=== PATIENT | female | born 1995 | race Hispanic/Latino ===

== ENCOUNTER 2018-08-23 13:58 | Emergency (ER) | payer OTHER, SELFPAY ==
[2018-08-23 15:34] LABS: Urine Blood 2+ (NEG); Urine Glucose NEGATIVE (NEG); Urine Protein NEGATIVE (NEG)
[2018-08-23 16:05] LABS: Absolute Lymphocytes (CBC) 1.4 K/uL (0.7-4.9); Absolute Monocytes 0.4 K/uL (0.1-1.3); Absolute Neutrophil 5.4 K/uL (1.8-8.0); Basophils % 0.4 % (0-1.3); Eosinophils % 1.6 % (0-4.4); Hematocrit 37.4 % (36.0-45.0); Lymphocytes % 19.2 % (15.3-44.8); MPV 9.5 fL (7.6-11.3); Monocytes % 5.7 % (3.3-12.3); RBC Red Blood Cell Count 4.22 M/uL (3.86-4.86)
[2018-08-23 16:30] LABS: BUN Blood Urea Nitrogen 9 mg/dL (7-18); Bicarbonate 26 mmol/L (21-32); Glucose Level 94 mg/dL (74-106); HCG, Quantitative 4441 mIU/mL (1-3); Potassium 3.6 mmol/L (3.5-5.1); Sodium Level 140 mmol/L (136-145)
--- NOTE | 2018-08-23 17:16 | RAD REPORT ---
EXAM DESCRIPTION: US - TRANSVAG OB - 08/23/2018 4:08 pm CLINICAL HISTORY: with abdominal pain vaginal pain COMPARISON: None FINDINGS: The uterus measures 8 x 5 x 5 centimeters. A gestational sac is present within the endome trium. Within this is a yolk sac. Gestational sac measures 7 millimeters. A pole was not visual ized Neither ovary seen. Within the left adnexa near midline is a 19.5 centimeter mass with low level echoes and thick septati on. No significant free fluid IMPRESSION: Single intrauterine with an estimated gestational age 5 weeks 3 days SYED 03/27 19.5 centimeter complex cystic mass within the pelvis near midline may represent a hemorrhagic ovaria n cyst, cystadenoma, mesenteric cyst or endometrioma
--- NOTE | 2018-08-23 17:41 | EDPHYS ---
Physician Documentation [facility] Name: Thelma Modi Age: 22 yrs Sex: Female : 1995 Arrival Date: 08/23/2018 Time: 14:03 Bed 27 Private MD: ED Physician Jose Head HPI: 08/23 17:38 This 22 yrs old Female presents to ER via Ambulatory with complaints of jmm Vaginal Bleeding, + Preg <12wks. 17:38 The patient presents to the emergency department with vaginal bleeding. Previous [facility] pregnancies: the patient has never been . Associated signs and symptoms: Pertinent negatives: abdominal pain, fever, frequency, shortness of breath, vomiting. This is a 22 years old that presents to the ED with complaints of vaginal bleeding. Bleeding is described as light. Denies abdominal or pelvic pain. Denies fever. 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 - Social history:: Smoking status: Patient/guardian denies using tobacco. - Ebola Screening: : No symptoms or risks identified at this time. ROS: 17:38 Constitutional: Negative for fever, chills, and weight loss, Cardiovascular: Negative jmm for chest pain, palpitations, and edema, Respiratory: Negative for shortness of breath, cough, wheezing, and pleuritic chest pain, Abdomen/GI: Negative for abdominal pain, nausea, vomiting, diarrhea, and constipation. 17:38 : Positive for vaginal bleeding. 17:38 All other systems are negative. Exam: 17:38 Constitutional: This is a well developed, well nourished patient who is awake, alert, jmm and in no acute distress. Head/Face: atraumatic. Eyes: EOMI, no conjunctival erythema appreciated ENT: Moist Mucus Membranes Neck: Trachea midline, Supple Chest/axilla: Normal chest wall appearance and motion. Cardiovascular: Regular rate and rhythm. No edema appreciated Respiratory: Normal respirations, no respiratory distress appreciated Abdomen/GI: Non distended, soft 17:38 Skin: General appearance color normal MS/ Extremity: Moves all extremities, no obvious deformities appreciated, no edema noted to the lower extremities Neuro: Awake and alert, normal gait Psych: Behavior is normal, Mood is normal, Patient is cooperative and pleasant 17:38 Abdomen/GI: Inspection: abdomen appears normal, Bowel sounds: normal, Palpation: soft, in the right lower quadrant and left lower quadrant. 17:38 Back: ROM is normal. Vital Signs: 14:03 BP 132 / 87; Pulse 82; Resp 16; Temp 98; Pulse Ox 97% ; Weight 108.86 kg; Height 5 ft. sv 6 in. (167.64 cm); Pain 0/10; 16:47 BP 113 / 82; Pulse 74; Resp 18; Temp 98(O); Pulse Ox 98% on R/A; Pain 0/10; mg2 17:57 BP 114 / 78; Pulse 78; Resp 18; Temp 98; Pulse Ox 100% on R/A; Pain 0/10; mg2 14:03 Body Mass Index 38.74 (108.86 kg, 167.64 cm) sv MDM: 15:16 Patient medically screened. [facility] 17:37 Data reviewed: vital signs, nurses notes. Counseling: I had a detailed discussion with [facility] the patient and/or guardian regarding: the historical points, exam findings, and any diagnostic results supporting the discharge/admit diagnosis, radiology results, the need for outpatient follow up, to return to the emergency department if symptoms worsen or persist or if there are any questions or concerns that arise at home. 17:37 Data reviewed: lab test result(s), radiologic studies. [facility] 17:37 ED course: I discussed US findings with Dr. Villar whom advised that the patient [facility] follow up in clinic with strict return precautions. I discussed this with the patient and family whom agree with the plan of care. . 08/23 14:33 Order name: Urine Dipstick--Ancillary (enter results); Complete Time: 15:45 08/23 14:33 Order name: Urine --Ancillary (enter results); Complete Time: 15:45 08/23 15:08 Order name: Quantitative Hcg; Complete Time: 16:33 [facility] 08/23 15:08 Order name: Abo/rh Typing; Complete Time: 16:47 [facility] 08/23 15:08 Order name: Basic Metabolic Panel; Complete Time: 16:33 [facility] 08/23 15:08 Order name: CBC with Diff; Complete Time: 16:33 [facility] 08/23 15:08 Order name: IV Saline Lock; Complete Time: 15:30 [facility] 08/23 15:08 Order name: Labs collected and sent; Complete Time: 15:30 [facility] 08/23 15:08 Order name: NPO; Complete Time: 15:30 [facility] 08/23 15:08 Order name: Urine Dipstick-Ancillary (obtain specimen); Complete Time: 15:30 [facility] 08/23 15:53 Order name: TRANSVAG OB; Complete Time: 17:17 [facility] 08/23 17:25 Interpretation: Abnormal. [facility] Administered Medications: No medications were administered Point of Care Testing: Urine : 15:34 hCG Reading: Positive; Control Reading: Positive; mg2 Disposition: 08/24 07:41 Co-signature as Attending Physician, Jose Head MD I agree with the assessment and kdr plan of care. Disposition: 08/23/18 17:38 Discharged to Home. Impression: Threatened , Urinary tract infection, site not specified, Pelvic Mass. - Condition is Stable. - Discharge Instructions: Ovarian Cyst, Threatened Miscarriage, Vaginal Bleeding During , First Trimester, and Urinary Tract Infection. - Prescriptions for Cephalexin 500 mg Oral Capsule - take 1 capsule by ORAL route every 12 hours for 10 days; 20 capsule. - Medication Reconciliation Form, Thank You Letter, Antibiotic Education, Prescription Opioid Use form. - Follow up: Xiang Villar MD; When: 2 - 3 days; Reason: Recheck today's complaints, Continuance of care, Re-evaluation by your physician. Signatures: Dispatcher [facility] Tami Richmond, RN RN Jose Dave MD MD kdr Mickail, Joel, PA PA [facility] Anthony Worley RN RN mg2 Corrections: (The following items were deleted from the chart) 08/23 15:53 15:33 OB Limited+US.RAD.BRZ ordered. [facility] 17:58 17:38 08/23/2018 17:38 Discharged to Home. Impression: Threatened ; Urinary mg2 tract infection, site not specified; Pelvic Mass. Condition is Stable. Forms are Medication Reconciliation Form, Thank You Letter, Antibiotic Education, Prescription Opioid Use. Follow up: Xiang Villar; When: 2 - 3 days; Reason: Recheck today's complaints, Continuance of care, Re-evaluation by your physician. oksana
--- NOTE | 2018-08-23 17:41 | ER ---
Nurse's Notes [facility] Name: Thelma Modi Age: 22 yrs Sex: Female : 1995 Arrival Date: 08/23/2018 Time: 14:03 Bed 27 Private MD: Diagnosis: Threatened ;Urinary tract infection, site not specified;Pelvic Mass Presentation: 08/23 14:02 Presenting complaint: Patient states: light vaginal bleeding started this morning, sv using a panty liner at this time. Pt is , unk amt of weeks. Transition of care: patient was not received from another setting of care. Onset of symptoms was August 23, 2018. Care prior to arrival: None. 14:02 Method Of Arrival: Ambulatory sv 14:02 Acuity: OC 3 sv 15:33 Risk Assessment: Do you want to hurt yourself or someone else? Patient reports no mg2 desire to harm self or others. Initial Sepsis Screen: Does the patient meet any 2 criteria? No. Patient's initial sepsis screen is negative. Does the patient have a suspected source of infection? No. Patient's initial sepsis screen is negative. 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 - Social history:: Smoking status: Patient/guardian denies using tobacco. - Ebola Screening: : No symptoms or risks identified at this time. Screenin:32 Abuse screen: Denies threats or abuse. Denies injuries from another. Nutritional mg2 screening: No deficits noted. Tuberculosis screening: No symptoms or risk factors identified. Fall Risk IV access (20 points). Assessment: 15:32 General: Appears in no apparent distress. comfortable, Behavior is calm, cooperative. mg2 Pain: Denies pain. Neuro: Level of Consciousness is awake, alert, obeys commands, Oriented to person, place, time, situation. Cardiovascular: Capillary refill < 3 seconds Patient's skin is warm and dry. Respiratory: Airway is patent Respiratory effort is even, unlabored, Respiratory pattern is regular, symmetrical. GI: No signs and/or symptoms were reported involving the gastrointestinal system. : Reports vaginal bleeding that is moderate flow, spotty. EENT: No signs and/or symptoms were reported regarding the EENT system. Derm: Skin is intact, is healthy with good turgor, Skin is pink, warm \T\ dry. normal. Musculoskeletal: Circulation, motion, and sensation intact. Capillary refill < 3 seconds. 15:33 Obstetrical Assessment: General assessment: awake and alert, skin warm and dry, Patient mg2 reports vaginal bleeding since 12 noon today. 17:57 Reassessment: Patient appears in no apparent distress at this time. Patient and/or mg2 family updated on plan of care and expected duration. Pain level reassessed. Patient is alert, oriented x 3, equal unlabored respirations, skin warm/dry/pink. Patient denies pain at this time. Vital Signs: 14:03 BP 132 / 87; Pulse 82; Resp 16; Temp 98; Pulse Ox 97% ; Weight 108.86 kg; Height 5 ft. sv 6 in. (167.64 cm); Pain 0/10; 16:47 BP 113 / 82; Pulse 74; Resp 18; Temp 98(O); Pulse Ox 98% on R/A; Pain 0/10; mg2 17:57 BP 114 / 78; Pulse 78; Resp 18; Temp 98; Pulse Ox 100% on R/A; Pain 0/10; mg2 14:03 Body Mass Index 38.74 (108.86 kg, 167.64 cm) sv Vitals: 17:58 Heart Tones not done. mg2 ED Course: 14:03 Patient arrived in ED. mr 14:03 Triage completed. sv 14:04 Arm band placed on. sv 15:05 Freddie Valles PA is PHCP. jmm 15:05 Jose Head MD is Attending Physician. jmm 15:31 Anthony Worley RN is Primary Nurse. mg2 15:31 No provider procedures requiring assistance completed. Inserted saline lock: 20 gauge mg2 in right forearm, using aseptic technique. Blood collected. 15:33 Patient has correct armband on for positive identification. mg2 16:09 TRANSVAG OB In Process Unspecified. EDMS 17:37 Xiang Villar MD is Referral Physician. jmm 17:58 IV discontinued, intact, bleeding controlled, No redness/swelling at site. Pressure mg2 dressing applied. Administered Medications: No medications were administered Point of Care Testing: Urine : 15:34 hCG Reading: Positive; Control Reading: Positive; mg2 Outcome: 17:38 Discharge ordered by . oksana 17:58 Discharged to home ambulatory, with family. mg2 17:58 Condition: stable 17:58 Discharge instructions given to patient, family, Instructed on discharge instructions, follow up and referral plans. medication usage, Demonstrated understanding of instructions, follow-up care, medications, Prescriptions given X 1. 17:58 Patient left the ED. mg2 Signatures: Dispatcher [employer] Tami Joshi RN RN Freddie Quinteros PA PA jmm Rivera, Mary mr Gardose, Michele RN RN mg2 Corrections: (The following items were deleted from the chart) 14:05 14:03 BP 132 / 87; Pulse 82bpm; Resp 16bpm; Pulse Ox 97%; 108.86 kg; Height 5 ft. 6 sv in.; BMI: 38.7; Pain 0/10; sv
== END 2018-08-23 17:58 | disposition home or self-care (01) ==
LOC: ER 13:58
DX: O20.0 Threatened abortion (principal); O23.41 Unspecified infection of urinary tract in pregnancy, first trimester; R19.00 Intra-abdominal and pelvic swelling, mass and lump, unspecified site; Z3A.01 Less than 8 weeks gestation of pregnancy
CPT/HCPCS: 36415; 76813; 80048; 81003; 81025; 84702; 85025; 86900; 86901; 99284

== ENCOUNTER 2018-09-04 14:26 | Emergency (ER) | payer OTHER, SELFPAY ==
[2018-09-04 15:01] LABS: Absolute Lymphocytes (CBC) 1.9 K/uL (0.7-4.9); Absolute Monocytes 0.6 K/uL (0.1-1.3); Absolute Neutrophil 7.2 K/uL (1.8-8.0); Basophils % 0.3 % (0-1.3); Eosinophils % 1.4 % (0-4.4); Lymphocytes % 19.3 % (15.3-44.8); MPV 9.3 fL (7.6-11.3); RBC Red Blood Cell Count 4.42 M/uL (3.86-4.86)
[2018-09-04 15:10] LABS: Urine Blood 3+ (NEG); Urine Glucose NEGATIVE (NEG); Urine Protein TRACE (NEG); Urine pH 7.5 (5.0-7.0)
[2018-09-04 15:10] LABS: BUN Blood Urea Nitrogen 9 mg/dL (7-18); Bicarbonate 23 mmol/L (21-32); Glucose Level 86 mg/dL (74-106); Potassium 3.9 mmol/L (3.5-5.1); Sodium Level 139 mmol/L (136-145)
--- NOTE | 2018-09-04 16:04 | RAD REPORT ---
EXAM DESCRIPTION: US - Transvaginal OB - 09/04/2018 3:37 pm CLINICAL HISTORY: Abdominal pain and cramping, , vaginal bleeding COMPARISON: Ultrasound August 23, 2018 FINDINGS: A normal shaped intrauterine gestational sac is again identifiable. A an 18 x 12 x 5 mm lao bchorionic hemorrhage is present not significant at this size. There remains no is avulsed pole . Yolk sac seen previously is not identified on the current study. Again noted is a large cystic 19-27 centimeter mass filling the pelvis. At least 1 thickened septatio n is present. Appearance is similar to the August 23 study. IMPRESSION: Presumed gestational sac in the uterus is again identified. There remains no identifiabl e pole and no yolk sac was identifiable on today's study. Large 19-20 centimeter cystic mass is still present filling the pelvis showing no change from August 23 imaging.
--- NOTE | 2018-09-04 16:12 | ER ---
Nurse's Notes [facility] Name: Thelma Modi Age: 22 yrs Sex: Female : 1995 Arrival Date: 09/04/2018 Time: 14:29 Bed 17 Private MD: Diagnosis: Threatened Presentation: 09/04 14:30 Presenting complaint: Patient states: LMP- 07/10/18; "i was here few weeks ago, they hj told me i have a cyst, and they told me when i have bleeding to come back; this bleeding started today, light at first and slowly getting heavier; reports abd cramps, pain of 3/10;. Transition of care: patient was not received from another setting of care. Onset of symptoms was September 04, 2018. Risk Assessment: Do you want to hurt yourself or someone else? Patient reports no desire to harm self or others. Initial Sepsis Screen: Does the patient meet any 2 criteria? No. Patient's initial sepsis screen is negative. Does the patient have a suspected source of infection? No. Patient's initial sepsis screen is negative. Care prior to arrival: None. 14:30 Method Of Arrival: Ambulatory 14:30 Acuity: OC 3 Triage Assessment: 14:43 General: Appears in no apparent distress. Behavior is calm, cooperative, appropriate tw2 for age. Pain: Denies pain. : No signs and/or symptoms were reported regarding the genitourinary system. 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 - Social history:: Smoking status: . - Ebola Screening: : Patient denies travel to an Ebola-affected area in the 21 days before illness onset. Screenin:42 Abuse screen: Denies threats or abuse. Nutritional screening: No deficits noted. tw2 Tuberculosis screening: No symptoms or risk factors identified. Fall Risk None identified. Assessment: 14:45 General: Appears in no apparent distress. obese, well groomed, Behavior is calm, tw2 cooperative, appropriate for age. Pain: Denies pain. Neuro: Level of Consciousness is awake, alert, obeys commands, confused, Oriented to person, place, time, situation. Cardiovascular: Heart tones S1 S2 Patient's skin is warm and dry. Respiratory: Airway is patent Respiratory effort is even, unlabored, Respiratory pattern is regular, symmetrical, Breath sounds are clear bilaterally. GI: No signs and/or symptoms were reported involving the gastrointestinal system. Abdomen is round non-distended, obese, Bowel sounds present X 4 quads. : No signs and/or symptoms were reported regarding the genitourinary system. : Reports vaginal bleeding that is. : Reports vaginal bleeding that is heavy flow. EENT: No signs and/or symptoms were reported regarding the EENT system. Derm: No signs and/or symptoms reported regarding the dermatologic system. Musculoskeletal: Range of motion: intact in all extremities. 15:42 Reassessment: Patient appears in no apparent distress at this time. No changes from tw2 previously documented assessment. Patient and/or family updated on plan of care and expected duration. Pain level reassessed. Patient is alert, oriented x 3, equal unlabored respirations, skin warm/dry/pink. 16:17 Reassessment: Patient appears in no apparent distress at this time. No changes from tw2 previously documented assessment. Patient and/or family updated on plan of care and expected duration. Pain level reassessed. Patient is alert, oriented x 3, equal unlabored respirations, skin warm/dry/pink. Vital Signs: 14:33 BP 119 / 74; Pulse 73; Resp 16; Temp 97.9(TE); Pulse Ox 98% on R/A; Weight 113.4 kg; hj Height 5 ft. 6 in. (167.64 cm); Pain 3/10; 15:42 BP 120 / 76; Pulse 65; Resp 17; Pulse Ox 97% on R/A; tw2 14:33 Body Mass Index 40.35 (113.40 kg, 167.64 cm) Vitals: 14:43 Heart Tones n/a <12wks. tw2 ED Course: 14:29 Patient arrived in ED. mr 14:32 Triage completed. hj 14:32 Arm band placed on right wrist. hj 14:37 Kamala Duncan FNP-C [facility]. kb 14:37 Josafat Isaac MD is Attending Physician. kb 14:38 Ny Mina, RN is Primary Nurse. tw2 14:43 Bed in low position. Call light in reach. tw2 14:50 Inserted saline lock: 22 gauge in right antecubital area, using aseptic technique. tw2 Blood collected. 15:39 US Transvaginal Ob In Process Unspecified. EDMS 16:17 No provider procedures requiring assistance completed. IV discontinued, intact, tw2 bleeding controlled, No redness/swelling at site. Pressure dressing applied. Administered Medications: No medications were administered Outcome: 16:11 Discharge ordered by MD. kb 16:18 Discharged to home ambulatory. tw2 16:18 Condition: stable 16:18 Discharge instructions given to patient, Instructed on discharge instructions, follow up and referral plans. Demonstrated understanding of instructions, follow-up care. 16:18 Patient left the ED. tw2 Signatures: Dispatcher [employer] EDMS Kamala Duncan, JUNAID BLEVINSP-Jadon JonathanNelly Henry, RN RN Ny Mina, RN RN tw2 Corrections: (The following items were deleted from the chart) 14:34 14:33 113.4 kg; Height 5 ft. 6 in.; BMI: 40.3; Pain 3/10; hj hj 14:34 14:33 Pulse 73bpm; Resp 16bpm; Pulse Ox 98% RA; Temp 97.9F Temporal; 113.4 kg; Height 5 hj ft. 6 in.; BMI: 40.3; Pain 3/10; hj
--- NOTE | 2018-09-04 16:13 | EDPHYS ---
Physician Documentation [facility] Name: Thelma Modi Age: 22 yrs Sex: Female : 1995 Arrival Date: 09/04/2018 Time: 14:29 Bed 17 Private MD: ED Physician Josafat Isaac HPI: 09/04 15:22 This 22 yrs old Female presents to ER via Ambulatory with complaints of kb Vaginal Bleeding, + Preg <12wks. 15:22 The patient presents to the emergency department with abdominal pain, of the right kb lower quadrant and left lower quadrant, that started this morning, vaginal bleeding, that is light. The estimated gestational age is 7 weeks. course: care: none, Leakage of Fluid: none appreciated, Ultrasound: the patient had an ultrasound, Risk/complications: no obvious risks or complications are appreciated. Previous pregnancies: the patient has never been . Associated signs and symptoms: Pertinent positives: abdominal pain, vaginal bleeding, Pertinent negatives: chest pain, diarrhea, dysuria, fever, frequency, nausea, ruptured membranes, seizure, shortness of breath, vaginal discharge, vomiting. The patient has not experienced similar symptoms in the past. The patient has not recently seen a physician. Pt reports vaginal bleeding and lower abd pain started this morning. States the abd pain has gotten better, but bleeding has gotten worse. 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 - Social history:: Smoking status: . - Ebola Screening: : Patient denies travel to an Ebola-affected area in the 21 days before illness onset. ROS: 15:21 Constitutional: Negative for fever, chills, and weight loss, Neck: Negative for injury, kb pain, and swelling, Cardiovascular: Negative for chest pain, palpitations, and edema, Respiratory: Negative for shortness of breath, cough, wheezing, and pleuritic chest pain, Back: Negative for injury and pain, MS/Extremity: Negative for injury and deformity, Skin: Negative for injury, rash, and discoloration, Neuro: Negative for headache, weakness, numbness, tingling, and seizure. 15:21 Abdomen/GI: Positive for abdominal pain, Negative for nausea, vomiting, and diarrhea. 15:21 : Positive for vaginal bleeding. Exam: 15:21 Constitutional: This is a well developed, well nourished patient who is awake, alert, kb and in no acute distress. Head/Face: Normocephalic, atraumatic. Neck: Trachea midline, no thyromegaly or masses palpated, and no cervical lymphadenopathy. Supple, full range of motion without nuchal rigidity, or vertebral point tenderness. No Meningismus. Chest/axilla: Normal chest wall appearance and motion. Nontender with no deformity. No lesions are appreciated. Cardiovascular: Regular rate and rhythm with a normal S1 and S2. No gallops, murmurs, or rubs. Normal PMI, no JVD. No pulse deficits. Respiratory: Lungs have equal breath sounds bilaterally, clear to auscultation and percussion. No rales, rhonchi or wheezes noted. No increased work of breathing, no retractions or nasal flaring. Back: No spinal tenderness. No costovertebral tenderness. Full range of motion. Skin: Warm, dry with normal turgor. Normal color with no rashes, no lesions, and no evidence of cellulitis. MS/ Extremity: Pulses equal, no cyanosis. Neurovascular intact. Full, normal range of motion. Neuro: Awake and alert, GCS 15, oriented to person, place, time, and situation. Cranial nerves II-XII grossly intact. Motor strength 5/5 in all extremities. Sensory grossly intact. Cerebellar exam normal. Normal gait. 15:21 Abdomen/GI: Inspection: abdomen appears normal, Bowel sounds: normal, in all quadrants, Palpation: soft, in all quadrants, mild abdominal tenderness, in the right lower quadrant and left lower quadrant. Vital Signs: 14:33 BP 119 / 74; Pulse 73; Resp 16; Temp 97.9(TE); Pulse Ox 98% on R/A; Weight 113.4 kg; hj Height 5 ft. 6 in. (167.64 cm); Pain 3/10; 15:42 BP 120 / 76; Pulse 65; Resp 17; Pulse Ox 97% on R/A; tw2 14:33 Body Mass Index 40.35 (113.40 kg, 167.64 cm) hj MDM: 14:38 Patient medically screened. kb 15:21 Data reviewed: vital signs, nurses notes. Data interpreted: Pulse oximetry: on room air kb is 98 %. Interpretation: normal. 16:01 Counseling: I had a detailed discussion with the patient and/or guardian regarding: the kb historical points, exam findings, and any diagnostic results supporting the discharge/admit diagnosis, lab results, radiology results, the need for outpatient follow up, an OB/Gyne specialist, to return to the emergency department if symptoms worsen or persist or if there are any questions or concerns that arise at home. 16:12 ED course: Educated to follow up in 48 hours for repeat Quantitative . kb 09/04 14:42 Order name: CBC with Diff; Complete Time: 15:03 kb 09/04 14:42 Order name: Basic Metabolic Panel; Complete Time: 15:14 kb 09/04 14:42 Order name: US Transvaginal Ob; Complete Time: 16:07 kb 09/04 14:44 Order name: HCG-Quantitative; Complete Time: 16:00 09/04 15:00 Order name: Urine Dipstick--Ancillary (enter results); Complete Time: 15:14 09/04 15:00 Order name: Urine --Ancillary (enter results); Complete Time: 15:14 09/04 14:35 Order name: Urine Dipstick-Ancillary (obtain specimen); Complete Time: 14:54 09/04 14:35 Order name: Urine Test (obtain specimen); Complete Time: 14:54 09/04 14:44 Order name: IV Start; Complete Time: 14:54 tw2 Administered Medications: No medications were administered Disposition: 19:03 Co-signature as Attending Physician, Josafat Isaac MD Available for consultation at ps1 all times. . Disposition: 09/04/18 16:11 Discharged to Home. Impression: Threatened . - Condition is Stable. - Discharge Instructions: Threatened Miscarriage, [id number]. - Medication Reconciliation Form, Thank You Letter, Antibiotic Education, Prescription Opioid Use form. - Follow up: Emergency Department; When: As needed; Reason: Worsening of condition. Follow up: Private Physician; When: 2 - 3 days; Reason: Recheck today's complaints, Continuance of care, Re-evaluation by your physician. Signatures: Dispatcher [employer] Amplification EDMS Kamala Duncan, BILLET SHEARER-C BILLET SHEARER-Ckb Ravin Gary, RN RN hj Ny Mina RN RN tw2 Josafat Isaac MD MD ps1 Corrections: (The following items were deleted from the chart) 16:18 16:11 09/04/2018 16:11 Discharged to Home. Impression: Threatened . Condition tw2 is Stable. Forms are Medication Reconciliation Form, Thank You Letter, Antibiotic Education, Prescription Opioid Use. Follow up: Emergency Department; When: As needed; Reason: Worsening of condition. Follow up: Private Physician; When: 2 - 3 days; Reason: Recheck today's complaints, Continuance of care, Re-evaluation by your physician. kb
== END 2018-09-04 16:18 | disposition home or self-care (01) ==
LOC: ER 14:26
DX: O20.0 Threatened abortion (principal); Z3A.01 Less than 8 weeks gestation of pregnancy
CPT/HCPCS: 36415; 76817; 80048; 81003; 81025; 84702; 85025; 99284

== ENCOUNTER 2018-09-15 10:47 | Emergency (ER) | payer OTHER ==
--- OUTSIDE RECORDS SUMMARY | 2018-09-15 10:50 | XMS REPORT ---
:1995 [facility] Address [address] [place] [address] Dr. Gilman [address] [place] [id number] Care Team Providers Name Role Phone Unavailable Unavailable Unavailable Problems This patient has no known problems. Allergies, Adverse Reactions, Alerts This patient has no known allergies or adverse reactions. Medications This patient has no known medications.
[2018-09-15 12:18] LABS: Urine Blood NEGATIVE (NEG); Urine Glucose NEGATIVE (NEG); Urine Protein NEGATIVE (NEG); Urine pH 5.5 (5.0-7.0)
--- NOTE | 2018-09-15 13:41 | RAD REPORT ---
EXAM DESCRIPTION: US - Transvaginal OB - 09/15/2018 1:14 pm CLINICAL HISTORY: , pelvic pain COMPARISON: September 04, August 23 FINDINGS: A normal shaped gestational sac is seen in the fundal portion of the endometrial cavity. A verage sac diameter corresponds to a 6 week 5 day age. This would match the September 04 imaging. No pole or yolk sac identifiable. No new or enlarging intrauterine hematoma or mass. This is most likel y a blighted ovum. No free fluid or blood in the cul-de-sac. In the left adnexa an 18-20 centimeter cystic mass with sep tation again identified. No exchange trouble shooter this short 2 week interval. Thin rim of ovarian tissue is laura ntified. Torsion is not suspected at this time. Right ovary was not identifiable. No right adnexal ab normality. IMPRESSION: Presumed gestational sac in the fundus has not changed size since September 04. This is most likely a blighted ovum. An 18-20 centimeter cystic mass in the left adnexa is present stable from prior imaging. Torsion is n ot currently suspected. 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 Cystadenocarcinoma or other aggressive pro cess lesser in likelihood but not excluded. No adnexal mass seen suspicious for an ectopic . Findings are presumed to be miscarriage. Correlation can be made with serial beta HCG values. 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
[2018-09-15 14:22] LABS: Absolute Lymphocytes (CBC) 1.4 K/uL (0.7-4.9); Basophils % 0.4 % (0-1.3); Eosinophils % 0.8 % (0-4.4); Hematocrit 37.7 % (36.0-45.0); Lymphocytes % 16.1 % (15.3-44.8); MPV 9.1 fL (7.6-11.3); Monocytes % 4.4 % (3.3-12.3); RBC Red Blood Cell Count 4.23 M/uL (3.86-4.86)
[2018-09-15 15:01] LABS: BUN Blood Urea Nitrogen 10 mg/dL (7-18); Bicarbonate 26 mmol/L (21-32); Glucose Level 83 mg/dL (74-106); HCG, Quantitative 17799 mIU/mL (1-3); Potassium 3.6 mmol/L (3.5-5.1); Sodium Level 140 mmol/L (136-145)
--- NOTE | 2018-09-15 16:03 | EDPHYS ---
Physician Documentation [facility] Name: Thelma Modi Age: 23 yrs Sex: Female : 1995 Arrival Date: 09/15/2018 Time: 10:49 Bed 18 Private MD: ED Physician Shahzad Hanks HPI: 09/15 11:30 This 23 yrs old Female presents to ER via Ambulatory with complaints of jmm Abdominal Pain, 9 wks . 11:30 The patient presents with abdominal pain in the left lower quadrant. Onset: The jmm symptoms/episode began/occurred acutely, 1 hour(s) ago. The symptoms do not radiate. Associated signs and symptoms: Pertinent positives: vomiting. The symptoms are described as sharp. This is a 23 year old female that presents to the ED with complaints of acute onset pelvic pain. Pain is localized to the left side. Patient had 1 episode of vomiting. Denies vaginal bleeding. Denies fever. Patient states pain is currently relieved approx 10 minutes ago. . 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 - Social history:: Smoking status: Patient/guardian denies using tobacco. - Ebola Screening: : No symptoms or risks identified at this time. ROS: 11:30 Constitutional: Negative for fever, chills, and weight loss, Cardiovascular: Negative jmm for chest pain, palpitations, and edema, Respiratory: Negative for shortness of breath, cough, wheezing, and pleuritic chest pain. 11:30 Back: Negative for injury and pain. 11:30 Abdomen/GI: Positive for abdominal pain, nausea and vomiting. 11:30 All other systems are negative. Exam: 11:30 Constitutional: This is a well developed, well nourished patient who is awake, alert, jmm and in no acute distress. Head/Face: atraumatic. Eyes: EOMI, no conjunctival erythema appreciated ENT: Moist Mucus Membranes Neck: Trachea midline, Supple Chest/axilla: Normal chest wall appearance and motion. Cardiovascular: Regular rate and rhythm. No edema appreciated Respiratory: Normal respirations, no respiratory distress appreciated 11:30 Back: Normal ROM Skin: General appearance color normal MS/ Extremity: Moves all extremities, no obvious deformities appreciated, no edema noted to the lower extremities Neuro: Awake and alert, normal gait Psych: Behavior is normal, Mood is normal, Patient is cooperative and pleasant 11:30 Abdomen/GI: Inspection: abdomen appears normal, Bowel sounds: normal, Palpation: soft, nontender, in all quadrants. 11:30 Back: CVA tenderness, is absent. Vital Signs: 10:56 BP 145 / 82; Pulse 66; Resp 16 S; Temp 98.0(TE); Pulse Ox 99% on R/A; Weight 117.93 kg aa5 (R); Height 5 ft. 6 in. (167.64 cm) (R); Pain 8/10; 11:40 BP 106 / 78; Pulse 66; Resp 18; Pulse Ox 99% on R/A; Pain 3/10; em 12:38 BP 121 / 72; Pulse 71; Resp 16; Pulse Ox 99% on R/A; Pain 3/10; em 13:41 BP 128 / 85; Pulse 67; Resp 18; Pulse Ox 99% on R/A; hj 14:30 BP 123 / 83; Pulse 68; Resp 18; Pulse Ox 97% on R/A; em 15:47 BP 112 / 73; Pulse 64; Resp 18; Pulse Ox 100% on R/A; em 10:56 Body Mass Index 41.96 (117.93 kg, 167.64 cm) aa5 MDM: 11:[address] [facility] 15:55 Data reviewed: vital signs, nurses notes. Counseling: I had a detailed discussion with [facility] the patient and/or guardian regarding: the historical points, exam findings, and any diagnostic results supporting the discharge/admit diagnosis, the need for outpatient follow up, to return to the emergency department if symptoms worsen or persist or if there are any questions or concerns that arise at home. 15:55 ED course: US reveals stable mass. No torsion. Quant is decreased concerning for jmm . I discussed US findings with the patient along with the need for close follow up with ob. Patient was otherwise given strict return precautions. Patient understood and agrees with the plan of care. . 09/15 12:01 Order name: Urine Dipstick--Ancillary (enter results); Complete Time: 12:23 09/15 12:01 Order name: Urine --Ancillary (enter results); Complete Time: 12:23 09/15 14:02 Order name: Quantitative Hcg; Complete Time: 15:[address] [facility] 09/15 14:03 Order name: BMP; Complete Time: 15:[address] [facility] 09/15 14:08 Order name: CBC with Diff; Complete Time: 14:[address] [facility] 09/15 12:52 Order name: Transvaginal OB; Complete Time: 13:45 EDWI Administered Medications: No medications were administered Disposition: 09/16 10:07 Co-signature as Attending Physician, Shahzad Hanks MD I agree with the assessment and jorden plan of care. Disposition: 09/15/18 15:56 Discharged to Home. Impression: Blighted ovum and nonhydatidiform mole. - Condition is Stable. - Discharge Instructions: Blighted Ovum. - Medication Reconciliation Form, Thank You Letter, Antibiotic Education, Prescription Opioid Use form. - Follow up: Private Physician; When: 2 - 3 days; Reason: Recheck today's complaints, Continuance of care, Re-evaluation by your physician. Signatures: Dispatcher [employer] [facility] Shahzad Hanks MD MD cha Mickail, Joel, PA PA [facility] Ángel Horne, IMMERSION METAL CLEANER IMMERSION METAL CLEANER Leti Edwards, RN RN aa5 Corrections: (The following items were deleted from the chart) 09/15 12:52 11:37 Pelvis Complete+US.RAD.BRZ ordered. [facility] 16:19 15:56 09/15/2018 15:56 Discharged to Home. Impression: Blighted ovum and em nonhydatidiform mole. Condition is Stable. Forms are Medication Reconciliation Form, Thank You Letter, Antibiotic Education, Prescription Opioid Use. Follow up: Private Physician; When: 2 - 3 days; Reason: Recheck today's complaints, Continuance of care, Re-evaluation by your physician. [facility]
--- NOTE | 2018-09-15 16:03 | ER ---
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 Pt states "I am 9 weeks 4 days ". Pt denies vaginal bleeding. Transition of care: patient was not received from another setting of care. Onset of symptoms was September 15, 2018. Risk Assessment: Do you want to hurt yourself or someone else? Patient reports no desire to harm self or others. Initial Sepsis Screen: Does the patient meet any 2 criteria? No. Patient's initial sepsis screen is negative. Does the patient have a suspected source of infection? No. Patient's initial sepsis screen is negative. Care prior to arrival: None. 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 - Social history:: Smoking status: Patient/guardian denies using tobacco. - Ebola Screening: : No symptoms or risks identified at this time. Screenin:40 Abuse screen: Denies threats or abuse. Nutritional screening: No deficits noted. em Tuberculosis screening: No symptoms or risk factors identified. Fall Risk None identified. Assessment: 11:40 General: Appears in no apparent distress. comfortable, Behavior is calm, cooperative, em Denies fever. Pain: Complains of pain in left lower quadrant Pain currently is 3 out of 10 on a pain scale. Neuro: Level of Consciousness is awake, alert, obeys commands, Oriented to person, place, time, situation, Denies weakness dizziness. Cardiovascular: Capillary refill < 3 seconds Patient's skin is warm and dry. Respiratory: Airway is patent Respiratory effort is even, unlabored, Respiratory pattern is regular, symmetrical. GI: Abdomen is flat, Bowel sounds present X 4 quads. Abd is soft X 4 quads Abdomen is tender to palpation in left lower quadrant Reports nausea, vomiting. : Denies burning with urination, discharge, vaginal bleeding. Derm: Skin is intact, is healthy with good turgor, Skin is pink, warm \\T\\ dry. Musculoskeletal: Capillary refill < 3 seconds, Range of motion: intact in all extremities. 12:36 Reassessment: Patient appears in no apparent distress at this time. Patient and/or em family updated on plan of care and expected duration. Pain level reassessed. Patient is alert, oriented x 3, equal unlabored respirations, skin warm/dry/pink. pending US. 13:41 Reassessment: Patient appears in no apparent distress at this time. Patient and/or em family updated on plan of care and expected duration. Pain level reassessed. Patient is alert, oriented x 3, equal unlabored respirations, skin warm/dry/pink. pending US results Patient states feeling better. Patient states symptoms have improved. 14:24 Reassessment: Patient appears in no apparent distress at this time. Patient and/or em family updated on plan of care and expected duration. Pain level reassessed. Patient is alert, oriented x 3, equal unlabored respirations, skin warm/dry/pink. Patient states feeling better. Patient states symptoms have improved. 15:47 Reassessment: Patient appears in no apparent distress at this time. Patient and/or em family updated on plan of care and expected duration. Pain level reassessed. Patient is alert, oriented x 3, equal unlabored respirations, skin warm/dry/pink. Vital Signs: 10:56 BP 145 / 82; Pulse 66; Resp 16 S; Temp 98.0(TE); Pulse Ox 99% on R/A; Weight 117.93 kg aa5 (R); Height 5 ft. 6 in. (167.64 cm) (R); Pain 8/10; 11:40 BP 106 / 78; Pulse 66; Resp 18; Pulse Ox 99% on R/A; Pain 3/10; em 12:38 BP 121 / 72; Pulse 71; Resp 16; Pulse Ox 99% on R/A; Pain 3/10; em 13:41 BP 128 / 85; Pulse 67; Resp 18; Pulse Ox 99% on R/A; hj 14:30 BP 123 / 83; Pulse 68; Resp 18; Pulse Ox 97% on R/A; em 15:47 BP 112 / 73; Pulse 64; Resp 18; Pulse Ox 100% on R/A; em 10:56 Body Mass Index 41.96 (117.93 kg, 167.64 cm) aa5 ED Course: 10:49 Patient arrived in ED. mr 10:54 Arm band placed on. aa5 10:56 Triage completed. aa5 11:26 Freddie Valles PA is PHCP. [facility] 11:26 Shahzad Hanks MD is Attending Physician. [facility] 11:30 Ángel Horne LVN is Primary Nurse. em 11:40 Patient has correct armband on for positive identification. Placed in gown. Bed in low em position. Call light in reach. Adult w/ patient. Pulse ox on. NIBP on. 11:48 Urine collected: clean catch specimen, clear. 3 13:15 Transvaginal OB In Process Unspecified. EDMS 14:10 Initial lab(s) drawn, by me, sent to lab. em 16:11 No provider procedures requiring assistance completed. Patient did not have IV access em during this emergency room visit. Administered Medications: No medications were administered Outcome: 15:56 Discharge ordered by MD. [facility] 16:12 Discharged to home ambulatory, with family. em 16:12 Condition: good 16:12 Discharge instructions given to patient, Instructed on discharge instructions, follow up and referral plans. Demonstrated understanding of instructions, follow-up care. 16:19 Patient left the ED. em Signatures: Dispatcher [employer] EDMS Freddie Valles PA PA Nelly Gordon mr HorneÁngel LVN LVN em Leti Francois RN RN [facility] Ravin Gary RN RN Shelley Diaz [facility] Corrections: (The following items were deleted from the chart) 15:14 13:41 Reassessment: Patient appears in no apparent distress at this time. Patient em and/or family updated on plan of care and expected duration. Pain level reassessed. Patient is alert, oriented x 3, equal unlabored respirations, skin warm/dry/pink. pending US results Patient states feeling better. Patient states symptoms have improved. 15:14 14:24 Reassessment: Patient appears in no apparent distress at this time. Patient em and/or family updated on plan of care and expected duration. Pain level reassessed. Patient is alert, oriented x 3, equal unlabored respirations, skin warm/dry/pink. Patient states feeling better. Patient states symptoms have improved.
== END 2018-09-15 16:19 | disposition home or self-care (01) ==
LOC: ER 10:47
DX: O02.0 Blighted ovum and nonhydatidiform mole (principal); Z3A.09 9 weeks gestation of pregnancy
CPT/HCPCS: 36415; 76817; 80048; 81003; 81025; 84702; 85025; 99284

== ENCOUNTER 2018-10-17 15:15 | Emergency (ER) | payer OTHER ==
--- OUTSIDE RECORDS SUMMARY | 2018-10-17 15:18 | XMS REPORT ---
:1995 [facility] Address [address] [place] [address] Dr. Gilman [address] [place] [id number] Care Team Providers Name Role Phone Unavailable Unavailable Unavailable Problems This patient has no known problems. Allergies, Adverse Reactions, Alerts This patient has no known allergies or adverse reactions. Medications This patient has no known medications.
[2018-10-17] MEDS ORDERED: FLUORESCEIN SODIUM 1 MG/WRAP ONE (15:49)
[2018-10-17] MEDS ORDERED: TETRACAINE HCL 0.5% 4ML OPTH ONE (15:49)
[2018-10-17] MEDS ORDERED: TETANUS & DIPHTHERIA TOX,ADULT 0.5 ML VIAL ONE (15:50)
--- NOTE | 2018-10-17 16:02 | EDPHYS ---
Physician Documentation [facility] Name: Thelma Modi Age: 23 yrs Sex: Female : 1995 Arrival Date: 10/17/2018 Time: 15:17 Bed 17 Private MD: ED Physician Jose Head HPI: 10/17 15:28 This 23 yrs old Female presents to ER via Ambulatory with complaints of Eye pm1 Problem. 15:28 The patient is experiencing foreign body sensation, pain, The patient sustained pm1 Unknown. to the right eye, caused by contact lens. Onset: The symptoms/episode began/occurred this morning. Duration: the symptoms are continuous. Aggravated by nothing. Alleviated by nothing. Associated signs and symptoms: Pertinent positives: None. Patient wears soft contacts. Severity of symptoms: in the emergency department the symptoms are unchanged. The patient has not experienced similar symptoms in the past. The patient has not recently seen a physician. Patient slept with her contacts in her eyes. Contacts are monthly disposable soft contacts. 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 - Social history:: Smoking status: Patient/guardian denies using tobacco. - Ebola Screening: : No symptoms or risks identified at this time. ROS: 15:28 Constitutional: Negative for fever, chills, and weight loss. pm1 15:28 ENT: Negative for injury, pain, and discharge, Neck: Negative for injury, pain, and swelling, Cardiovascular: Negative for chest pain, palpitations, and edema, Respiratory: Negative for shortness of breath, cough, wheezing, and pleuritic chest pain, Abdomen/GI: Negative for abdominal pain, nausea, vomiting, diarrhea, and constipation, Back: Negative for injury and pain, MS/Extremity: Negative for injury and deformity, Skin: Negative for injury, rash, and discoloration, Neuro: Negative for headache, weakness, numbness, tingling, and seizure. 15:28 Eyes: Positive for foreign body sensation, pain, tearing, of the right eye, Negative for discharge, vision loss, visual disturbance. Exam: 15:28 Constitutional: This is a well developed, well nourished patient who is awake, alert, pm1 and in no acute distress. Head/Face: Normocephalic, atraumatic. 16:00 Visual Acuity: I have reviewed the nursing documentation. pm1 16:00 ENT: Nares patent. No nasal discharge, no septal abnormalities noted. Tympanic membranes are normal and external auditory canals are clear. Oropharynx with no redness, swelling, or masses, exudates, or evidence of obstruction, uvula midline. Mucous membranes moist. Neck: Trachea midline, no thyromegaly or masses palpated, and no cervical lymphadenopathy. Supple, full range of motion without nuchal rigidity, or vertebral point tenderness. No Meningismus. Chest/axilla: Normal chest wall appearance and motion. Nontender with no deformity. No lesions are appreciated. Cardiovascular: Regular rate and rhythm with a normal S1 and S2. No gallops, murmurs, or rubs. Normal PMI, no JVD. No pulse deficits. Respiratory: Lungs have equal breath sounds bilaterally, clear to auscultation and percussion. No rales, rhonchi or wheezes noted. No increased work of breathing, no retractions or nasal flaring. Back: No spinal tenderness. No costovertebral tenderness. Full range of motion. Skin: Warm, dry with normal turgor. Normal color with no rashes, no lesions, and no evidence of cellulitis. MS/ Extremity: Pulses equal, no cyanosis. Neurovascular intact. Full, normal range of motion. 16:00 Eyes: Periorbital structures: appear normal, Pupils: no acute changes, normal reaction to light, Extraocular movements: intact throughout, Conjunctiva: injected, in the right eye, Corneas: abrasion, that is small, approximately 1 mm(s), on the right, at 6 o'clock, foreign body, is not appreciated, a fluorescein strip employed to appreciate the findings, Sclera: no acute changes, Lids and lashes: appear normal. 16:00 Neuro: Orientation: is normal, Motor: is normal, moves all fours. Vital Signs: 15:20 BP 118 / 83; Pulse 75; Resp 18; Temp 98.4(TE); Pulse Ox 99% on R/A; Weight 113.4 kg; hj Height 5 ft. 6 in. (167.64 cm); Pain 4/10; 16:13 BP 115 / 79; Pulse 71; Resp 16; Temp 98.5; Pulse Ox 99% ; bp 15:20 Body Mass Index 40.35 (113.40 kg, 167.64 cm) hj Visual Acuity: 15:41 Left Eye Visual acuity 20/25, ; Right Eye Visual acuity 20/200, ; Both Eyes Visual dh3 acuity 20/25; With Lenses; pt is wearing a contact in the left eye only MDM: 15:28 Patient medically screened. pm1 16:00 Data reviewed: vital signs. Data interpreted: Pulse oximetry: on room air is 99 %. pm1 Interpretation: normal. Counseling: I had a detailed discussion with the patient and/or guardian regarding: the historical points, exam findings, and any diagnostic results supporting the discharge/admit diagnosis, the need for outpatient follow up, for definitive care, an opthalmologist, to return to the emergency department if symptoms worsen or persist or if there are any questions or concerns that arise at home. 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 Exp: bp 06/15/2020. Lot #: [id number]. } Route: IM; Site: right deltoid; 15:41 Follow up: Response: No adverse reaction bp Disposition: 10/18 06:49 Co-signature as Attending Physician, Jose Head MD I agree with the assessment and kdr plan of care. Disposition: 10/17/18 16:01 Discharged to Home. Impression: Injury of conjunctiva and corneal abrasion without foreign body, right eye. - Condition is Stable. - Discharge Instructions: Corneal Abrasion. - Prescriptions for Vigamox 0.5 % Ophthalmic Drops - instill 1 drop by OPHTHALMIC route every 8 hours for 7 days; 5 milliliter. - Medication Reconciliation Form, Thank You Letter, Antibiotic Education, Prescription Opioid Use form. - Follow up: Emergency Department; When: As needed; Reason: Worsening of condition. Follow up: Private Physician; When: 1 - 2 days; Reason: Recheck today's complaints, Continuance of care, Re-evaluation by your physician. - Problem is new. - Symptoms have improved. Signatures: Jose Head MD MD [facility] Ravin Gary RN RN Paul Jimenez NP DENIAL MANAGEMENT REPRESENTATIVE pm1 Mic Raya RN RN bp Corrections: (The following items were deleted from the chart) 10/17 16:15 16:01 10/17/2018 16:01 Discharged to Home. Impression: Injury of conjunctiva and bp corneal abrasion without foreign body, right eye. Condition is Stable. Forms are Medication Reconciliation Form, Thank You Letter, Antibiotic Education, Prescription Opioid Use. Follow up: Emergency Department; When: As needed; Reason: Worsening of condition. Follow up: Private Physician; When: 1 - 2 days; Reason: Recheck today's complaints, Continuance of care, Re-evaluation by your physician. Problem is new. Symptoms have improved. pm1
--- NOTE | 2018-10-17 16:02 | ER ---
Nurse's Notes [facility] Name: Thelma Modi Age: 23 yrs Sex: Female : 1995 Arrival Date: 10/17/2018 Time: 15:17 Bed 17 Private MD: Diagnosis: Injury of conjunctiva and corneal abrasion without foreign body, right eye Presentation: 10/17 15:19 Presenting complaint: Patient states: i think i have an over wear of contact lens, so hj my R eye got red and painful since last night;. Transition of care: patient was not received from another setting of care. Onset of symptoms was October 17, 2018. Risk Assessment: Do you want to hurt yourself or someone else? Patient reports no desire to harm self or others. Initial Sepsis Screen: Does the patient meet any 2 criteria? No. Patient's initial sepsis screen is negative. Does the patient have a suspected source of infection?. Care prior to arrival: None. 15:19 Method Of Arrival: Ambulatory 15:19 Acuity: OC 4 hj Triage Assessment: 15:20 General: Appears in no apparent distress. comfortable, Behavior is calm, cooperative, bp appropriate for age. Pain: Complains of pain in right eye. EENT: Sclera/Cornea are reddened in right eye. Neuro: No deficits noted. Cardiovascular: No deficits noted. Respiratory: No deficits noted. GI: No signs and/or symptoms were reported involving the gastrointestinal system. : No signs and/or symptoms were reported regarding the genitourinary system. Derm: No deficits noted. Musculoskeletal: No deficits noted. 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 - Social history:: Smoking status: Patient/guardian denies using tobacco. - Ebola Screening: : No symptoms or risks identified at this time. Screenin:37 Abuse screen: Denies threats or abuse. Denies injuries from another. Nutritional bp screening: No deficits noted. Tuberculosis screening: No symptoms or risk factors identified. Fall Risk None identified. Assessment: 15:20 General: SEE TRIAGE NOTE. bp 16:12 Reassessment: PT D/C HOME AMBULATORY WITH FAMILY, DX WITH CORNEAL ABRASION. bp Vital Signs: 15:20 BP 118 / 83; Pulse 75; Resp 18; Temp 98.4(TE); Pulse Ox 99% on R/A; Weight 113.4 kg; hj Height 5 ft. 6 in. (167.64 cm); Pain 4/10; 16:13 BP 115 / 79; Pulse 71; Resp 16; Temp 98.5; Pulse Ox 99% ; bp 15:20 Body Mass Index 40.35 (113.40 kg, 167.64 cm) hj Visual Acuity: 15:41 Left Eye Visual acuity 20/25, ; Right Eye Visual acuity 20/200, ; Both Eyes Visual dh3 acuity 20/25; With Lenses; pt is wearing a contact in the left eye only ED Course: 15:17 Patient arrived in ED. as 15:20 Triage completed. hj 15:22 Arm band placed on right wrist. hj 15:23 Paul Jimenez NP is PHCP. pm1 15:23 Jose Head MD is Attending Physician. pm1 15:23 Mic Raya, ELO is Primary Nurse. bp 15:37 Patient has correct armband on for positive identification. Bed in low position. Call bp light in reach. Side rails up X2. Adult w/ patient. 15:45 Assist provider with eye exam of right eye. using fluorescein stain, Performed by bp Paul Jimenez SURVEY PROJECT MANAGER Patient tolerated well. 16:13 Patient did not have IV access during this emergency room visit. 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 Exp: bp 06/15/2020. Lot #: [id number]. } Route: IM; Site: right deltoid; 15:41 Follow up: Response: No adverse reaction bp Outcome: 16:01 Discharge ordered by . pm1 16:14 Discharged to home ambulatory, with family. bp 16:14 Condition: stable 16:14 Discharge instructions given to patient, Instructed on discharge instructions, follow up and referral plans. medication usage, Demonstrated understanding of instructions, follow-up care, medications, Prescriptions given X 1. 16:15 Patient left the ED. bp Signatures: Fay Mujica Henry, RN RN hj Paul Jimenez NP SURVEY PROJECT MANAGER pm1 Shelley Landry dh3 Mic Raya, RN RN bp Corrections: (The following items were deleted from the chart) 15:23 15:20 Pulse 75bpm; Resp 18bpm; Pulse Ox 99% RA; Temp 98.4F Temporal; 113.4 kg; Height 5 hj ft. 6 in.; BMI: 40.3; Pain 4/10; hj
== END 2018-10-17 16:15 | disposition home or self-care (01) ==
LOC: ER 15:15
DX: S05.01XA Injury of conjunctiva and corneal abrasion without foreign body, right eye, initial encounter (principal); Z23 Encounter for immunization
CPT/HCPCS: 90471; 90714; 99283

== ENCOUNTER 2019-02-06 12:15 | Emergency (ER) | payer OTHER ==
--- OUTSIDE RECORDS SUMMARY | 2019-02-06 12:16 | XMS REPORT ---
:1995 [facility] Address [address] [place] [address] Dr. Gilman [address] [place] [id number] Care Team Providers Name Role Phone Unavailable Unavailable Unavailable Problems This patient has no known problems. Allergies, Adverse Reactions, Alerts This patient has no known allergies or adverse reactions. Medications This patient has no known medications.
[2019-02-06 14:10] LABS: Absolute Lymphocytes (CBC) 1.5 K/uL (0.7-4.9); Basophils % 0.3 % (0-1.3); Hematocrit 39.8 % (36.0-45.0); Lymphocytes % 17.8 % (15.3-44.8); MPV 9.2 fL (7.6-11.3); RBC Red Blood Cell Count 4.45 M/uL (3.86-4.86)
[2019-02-06 14:49] LABS: BUN Blood Urea Nitrogen 8 mg/dL (7-18); Bicarbonate 24 mmol/L (21-32); Glucose Level 92 mg/dL (74-106); HCG, Quantitative 26709 mIU/mL (1-3); Potassium 3.3 mmol/L (3.5-5.1); Sodium Level 138 mmol/L (136-145)
--- NOTE | 2019-02-06 14:54 | RAD REPORT ---
EXAM DESCRIPTION: US - Transvaginal OB - 02/06/2019 2:38 pm CLINICAL HISTORY: with pelvic pain and vaginal bleeding COMPARISON: None. FINDINGS: A normal appearing gestational sac is present within the endometrium. Within this is a yol k sac and pole with a crown-rump length 6.1 millimeters. Cardiac activity 124 beats per minute. Neither ovary was seen secondary to overlying bowel gas. . An adnexal mass is not noted. No significant free fluid is seen. IMPRESSION: Single live intrauterine with an estimated gestational age 6 weeks 4 days SYED 09/28/2019
[2019-02-06 14:57] LABS: Urine Blood 3+ (NEG); Urine Glucose NEGATIVE (NEG); Urine Protein NEGATIVE (NEG); Urine Specific Gravity 1.025 (1.005-1.030)
[2019-02-06 14:57] LABS: Urine Amorphous Sediment 1+ /HPF (NONE SEEN); Urine Bacteria <20 /HPF (<20); Urine Culture Reflex Order NOT NEEDED; Urine Mucus 2+ /HPF (NONE SEEN)
--- NOTE | 2019-02-06 15:09 | ER ---
Nurse's Notes [facility] Name: Thelma Modi Age: 23 yrs Sex: Female : 1995 Arrival Date: 02/06/2019 Time: 12:18 Bed 15 Private MD: Diagnosis: Threatened Presentation: 02/06 12:38 Presenting complaint: Patient states: Pt approx 7 weeks , light vaginal ph bleeding that began this morning, denies cramping or abdominal pain. Transition of care: patient was not received from another setting of care. Onset of symptoms was February 06, 2019. Risk Assessment: Do you want to hurt yourself or someone else? Patient reports no desire to harm self or others. Initial Sepsis Screen: Does the patient meet any 2 criteria? No. Patient's initial sepsis screen is negative. Does the patient have a suspected source of infection? No. Patient's initial sepsis screen is negative. Care prior to arrival: None. 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 Denies injuries from another. Nutritional sg screening: No deficits noted. Tuberculosis screening: No symptoms or risk factors identified. Never had TB. Fall Risk None identified. Assessment: 13:50 Obstetrical Assessment: General assessment: awake and alert. sg 13:50 General: Behavior is calm, cooperative, appropriate for age. Pain: Denies pain. Neuro: sg Level of Consciousness is awake, alert, obeys commands, Oriented to person, place, time, situation. Cardiovascular: Capillary refill is brisk in bilateral fingers Patient's skin is warm and dry. Chest pain is denied. Respiratory: Airway is patent Respiratory effort is even, unlabored, Respiratory pattern is regular, symmetrical. GI: No signs and/or symptoms were reported involving the gastrointestinal system. : Reports vaginal bleeding that is brown, light flow, spotty. EENT: Oral mucosa is moist. Throat is pink. Derm: Skin is pink, warm \T\ dry. Musculoskeletal: Circulation, motion, and sensation intact. Range of motion: intact in all extremities, Swelling absent. Vital Signs: 12:39 BP 124 / 77; Pulse 79; Resp 18; Temp 97.8; Pulse Ox 97% on R/A; ph ED Course: 12:18 Patient arrived in ED. mr 12:39 Triage completed. ph 12:40 Arm band placed on Patient placed in waiting room, Patient notified of wait time. ph 13:31 Paul Jimenez NP is PHCP. pm1 13:31 Jose Head MD is Attending Physician. pm1 13:45 Initial lab(s) drawn, by me, sent to lab. Inserted saline lock: 20 gauge in right sg antecubital area, using aseptic technique. Blood collected. 13:50 Gold Liang, RN is Primary Nurse. sg 14:39 US Transvaginal Ob In Process Unspecified. EDMS 15:26 Ultrasound completed. Patient tolerated well. is Administered Medications: No medications were administered Outcome: 15:08 Discharge ordered by . pm1 15:33 Patient left the ED. em1 Signatures: Dispatcher [employer] EDMS Gold Liang RN RN Nelly CastilloWilver em1 Abby Mcnulty RN RN Paul Jimenez NP HOOK UP pm1 Julieta Coles is Corrections: (The following items were deleted from the chart) 15:11 13:50 Obstetrical Assessment: General assessment: awake and alert, sg
--- NOTE | 2019-02-06 15:09 | EDPHYS ---
Physician Documentation [facility] Name: Thelma Modi Age: 23 yrs Sex: Female : 1995 Arrival Date: 02/06/2019 Time: 12:18 Bed 15 Private MD: ED Physician Jose Head HPI: 02/06 15:00 This 23 yrs old Female presents to ER via Ambulatory with complaints of pm1 Vaginal Bleeding, + Preg <12wks. 15:00 The patient presents to the emergency department with vaginal bleeding, that is light. pm1 The estimated gestational age is 6 weeks. course: care: none, Ultrasound: the patient has not had an ultrasound. Previous pregnancies: in previous pregnancies patient has had miscarriage between 6-8 weeks. Associated signs and symptoms: The patient has no apparent associated signs or symptoms, Pertinent negatives: abdominal pain, chest pain, dysuria, fever, shortness of breath, vaginal discharge. The patient has not recently seen a physician. 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 15:00 Abdomen/GI: Negative for abdominal pain, nausea, vomiting, diarrhea, and constipation, Back: Negative for injury and pain. 15:00 MS/Extremity: Negative for injury and deformity, Skin: Negative for injury, rash, and discoloration, Neuro: Negative for headache, weakness, numbness, tingling, and seizure. 15:00 Abdomen/GI: 15:00 : Positive for vaginal bleeding, Negative for flank pain, burning with urination, difficulty urinating. Exam: 15:00 Constitutional: This is a well developed, well nourished patient who is awake, alert, pm1 and in no acute distress. Head/Face: Normocephalic, atraumatic. Neck: Trachea midline, no thyromegaly or masses palpated, and no cervical lymphadenopathy. Supple, full range of motion without nuchal rigidity, or vertebral point tenderness. No Meningismus. Chest/axilla: Normal chest wall appearance and motion. Nontender with no deformity. No lesions are appreciated. Cardiovascular: Regular rate and rhythm with a normal S1 and S2. No gallops, murmurs, or rubs. Normal PMI, no JVD. No pulse deficits. Respiratory: Lungs have equal breath sounds bilaterally, clear to auscultation and percussion. No rales, rhonchi or wheezes noted. No increased work of breathing, no retractions or nasal flaring. Abdomen/GI: Soft, non-tender, with normal bowel sounds. No distension or tympany. No guarding or rebound. No evidence of tenderness throughout. Back: No spinal tenderness. No costovertebral tenderness. Full range of motion. Skin: Warm, dry with normal turgor. Normal color with no rashes, no lesions, and no evidence of cellulitis. MS/ Extremity: Pulses equal, no cyanosis. Neurovascular intact. Full, normal range of motion. 15:00 Neuro: Orientation: is normal, Motor: is normal, moves all fours. Vital Signs: 12:39 BP 124 / 77; Pulse 79; Resp 18; Temp 97.8; Pulse Ox 97% on R/A; ph MDM: 14:02 Patient medically screened. pm1 15:07 Data reviewed: vital signs. Data interpreted: Pulse oximetry: on room air is 97 %. pm1 Interpretation: normal. Counseling: I had a detailed discussion with the patient and/or guardian regarding: the historical points, exam findings, and any diagnostic results supporting the discharge/admit diagnosis, lab results, radiology results, the need for outpatient follow up, to return to the emergency department if symptoms worsen or persist or if there are any questions or concerns that arise at home. 02/06 13:32 Order name: Quantitative Hcg; Complete Time: 14:57 pm1 02/06 13:32 Order name: Abo/rh Typing; Complete Time: 14:57 pm1 02/06 13:32 Order name: Basic Metabolic Panel; Complete Time: 14:57 pm1 02/06 13:32 Order name: CBC with Diff; Complete Time: 14:25 pm1 02/06 13:32 Order name: Urine Microscopic Only; Complete Time: 15:07 pm1 02/06 14:10 Order name: Urine Dipstick--Ancillary (enter results); Complete Time: 15:07 em1 02/06 13:32 Order name: Urine Dipstick-Ancillary (obtain specimen); Complete Time: 14:09 pm1 02/06 13:32 Order name: Urine Test (obtain specimen); Complete Time: 14:09 pm1 02/06 13:32 Order name: IV Saline Lock; Complete Time: 14:51 pm1 02/06 13:32 Order name: Labs collected and sent; Complete Time: 14:51 pm1 02/06 13:32 Order name: NPO; Complete Time: 14:51 pm1 02/06 14:02 Order name: US Transvaginal Ob; Complete Time: 15:07 pm1 02/06 14:10 Order name: Urine --Ancillary (enter results); Complete Time: 15:07 em1 Administered Medications: No medications were administered Disposition: 02/07 07:29 Co-signature as Attending Physician, Jose Head MD I agree with the assessment and kdr plan of care. Disposition: 02/06/19 15:08 Discharged to Home. Impression: Threatened . - Condition is Stable. - Discharge Instructions: Threatened Miscarriage, Pelvic Rest. - Work release form, Family Work Release, Medication Reconciliation Form, Thank You Letter, Antibiotic Education, Prescription Opioid Use form. - Follow up: Emergency Department; When: As needed; Reason: Worsening of condition. Follow up: Private Physician; When: 2 - 3 days; Reason: Recheck today's complaints, Continuance of care, Re-evaluation by your physician. - Problem is new. - Symptoms have improved. Signatures: Dispatcher [employer] EDMS Jose Head MD MD kdr Martinez, Eric em1 Abby Mcnulty RN RN ph Paul Jimenez NP HEEL CEMENTER pm1 Corrections: (The following items were deleted from the chart) 02/06 15:33 15:08 02/06/2019 15:08 Discharged to Home. Impression: Threatened . Condition em1 is Stable. Forms are Medication Reconciliation Form, Thank You Letter, Antibiotic Education, Prescription Opioid Use. Follow up: Emergency Department; When: As needed; Reason: Worsening of condition. Follow up: Private Physician; When: 2 - 3 days; Reason: Recheck today's complaints, Continuance of care, Re-evaluation by your physician. Problem is new. Symptoms have improved. pm1
== END 2019-02-06 15:33 | disposition home or self-care (01) ==
LOC: ER 12:15
DX: O20.0 Threatened abortion (principal); Z3A.01 Less than 8 weeks gestation of pregnancy
CPT/HCPCS: 36415; 76817; 80048; 81003; 81015; 81025; 84702; 85025; 86900; 86901; 99283

== ENCOUNTER 2019-03-04 18:39 | Emergency (ER) | payer OTHER ==
--- OUTSIDE RECORDS SUMMARY | 2019-03-04 18:41 | XMS REPORT ---
:1995 [facility] Address [address] [place] [address] Dr. Gilman [address] [place] [id number] Care Team Providers Name Role Phone Unavailable Unavailable Unavailable Problems This patient has no known problems. Allergies, Adverse Reactions, Alerts This patient has no known allergies or adverse reactions. Medications This patient has no known medications.
[2019-03-04] MEDS ORDERED: PROMETHAZINE 25 MG TABLET ONE (19:43)
[2019-03-04 19:49] LABS: Urine Bacteria <20 /HPF (<20); Urine Culture Reflex Order NOT NEEDED; Urine Mucus 1+ /HPF (NONE SEEN); Urine RBC <5 /HPF (NONE SEEN)
[2019-03-04 20:20] LABS: Urine Blood NEGATIVE (NEG); Urine Glucose NEGATIVE (NEG); Urine Protein NEGATIVE (NEG); Urine pH 8.5 (5.0-7.0)
[2019-03-04] MEDS ORDERED: PROMETHAZINE 25 MG/ML VIAL ONE (20:24)
[2019-03-04] MEDS ORDERED: SIMETHICONE 80 MG TAB ONE (20:55)
[2019-03-04] MEDS ORDERED: NA CHLORIDE 0.9% 1,000 ML ONE (22:11)
[2019-03-04 22:23] LABS: Absolute Lymphocytes (CBC) 1.1 K/uL (0.7-4.9); Basophils % 0.3 % (0-1.3); Hematocrit 41.2 % (36.0-45.0); Lymphocytes % 9.2 % (15.3-44.8); MPV 9.2 fL (7.6-11.3); RBC Red Blood Cell Count 4.62 M/uL (3.86-4.86)
[2019-03-04 22:36] LABS: BUN Blood Urea Nitrogen 7 mg/dL (7-18); Bicarbonate 27 mmol/L (21-32); Glucose Level 79 mg/dL (74-106); Potassium 3.5 mmol/L (3.5-5.1); Sodium Level 139 mmol/L (136-145)
[2019-03-04 23:28] LABS: Blood Morphology Comment NOT SEEN (NOT SEEN); Platelet Estimate ADEQ
--- NOTE | 2019-03-04 23:34 | ER ---
Nurse's Notes [facility] Name: Thelma Modi Age: 23 yrs Sex: Female : 1995 Arrival Date: 03/04/2019 Time: 18:41 Bed 17 Private MD: Diagnosis: Unspecified abdominal pain; state;Threatened Presentation: 03/04 18:42 Presenting complaint: Patient states: LLQ pain that started 2 days ago and at times sv radiates across the lower right portion, vomiting as well. Pt is about 10 weeks . Transition of care: patient was not received from another setting of care. Onset of symptoms was February 2019. Risk Assessment: Do you want to hurt yourself or someone else? Patient reports no desire to harm self or others. Care prior to arrival: None. 18:42 Method Of Arrival: Ambulatory sv 18:42 Acuity: OC 3 sv 19:26 Initial Sepsis Screen: Does the patient meet any 2 criteria? No. Patient's initial wh sepsis screen is negative. Does the patient have a suspected source of infection? Yes: Acute abdominal pain. DIRECTOR OF CLINICAL TRIALS: 19:26 Verified Historical: - Allergies: 18:43 No Known Allergies; sv - PMHx: 18:43 None; sv - PSHx: 18:43 None; sv - Immunization history:: Flu vaccine is up to date. - Social history:: Smoking status: Patient/guardian denies using tobacco. - Ebola Screening: : No symptoms or risks identified at this time. Screenin:26 Abuse screen: Denies threats or abuse. Denies injuries from another. Nutritional wh screening: No deficits noted. Tuberculosis screening: No symptoms or risk factors identified. Fall Risk None identified. Assessment: 19:30 General: Appears in no apparent distress. Behavior is calm, cooperative, appropriate wh for age. Pain: Denies pain. Neuro: Level of Consciousness is awake, alert, obeys commands, Oriented to person, place, time, situation, Appropriate for age. Cardiovascular: Heart tones S1 S2. Respiratory: Airway is patent Respiratory effort is even, unlabored, Respiratory pattern is regular, symmetrical, Breath sounds are clear bilaterally. GI: Abdomen is round non-distended, Bowel sounds present X 4 quads. Abd is soft and non tender X 4 quads. Reports nausea, vomiting. : No signs and/or symptoms were reported regarding the genitourinary system. EENT: No signs and/or symptoms were reported regarding the EENT system. Derm: Skin is intact, is healthy with good turgor, Skin is pink, warm \T\ dry. normal. Musculoskeletal: Circulation, motion, and sensation intact. 20:28 Reassessment: Patient appears in no apparent distress at this time. No changes from previously documented assessment. Patient and/or family updated on plan of care and expected duration. Pain level reassessed. Patient is alert, oriented x 3, equal unlabored respirations, skin warm/dry/pink. 21:52 Reassessment: Patient appears in no apparent distress at this time. No changes from previously documented assessment. Patient and/or family updated on plan of care and expected duration. Pain level reassessed. Patient is alert, oriented x 3, equal unlabored respirations, skin warm/dry/pink. 22:56 Reassessment: Patient appears in no apparent distress at this time. No changes from previously documented assessment. Patient and/or family updated on plan of care and expected duration. Pain level reassessed. Patient is alert, oriented x 3, equal unlabored respirations, skin warm/dry/pink. Patient denies pain at this time. Patient states feeling better. Patient states symptoms have improved. 23:53 Reassessment: Patient appears in no apparent distress at this time. No changes from previously documented assessment. Patient and/or family updated on plan of care and expected duration. Pain level reassessed. Patient is alert, oriented x 3, equal unlabored respirations, skin warm/dry/pink. Patient denies pain at this time. Patient states feeling better. Patient states symptoms have improved. Vital Signs: 18:43 BP 125 / 82; Pulse 68; Resp 18; Temp 97.9(O); Pulse Ox 97% ; Weight 122.47 kg; Height 5 sv ft. 6 in. (167.64 cm); Pain 7/10; 20:28 BP 116 / 82; Pulse 60; Resp 18; Pulse Ox 98% on R/A; wh 21:52 BP 110 / 81; Pulse 57; Resp 18; Pulse Ox 98% on R/A; wh 22:56 BP 137 / 91; Pulse 72; Resp 16; Pulse Ox 98% on R/A; wh 23:30 BP 118 / 84; Pulse 70; Resp 18; Pulse Ox 99% on R/A; wh 18:43 Body Mass Index 43.58 (122.47 kg, 167.64 cm) ED Course: 18:41 Patient arrived in ED. sv 18:43 Triage completed. sv 18:44 Arm band placed on. sv 18:51 Yuval Chaidez RN is Primary Nurse. tr5 18:53 Marycruz Vargas FNP-C is [facility]. snw 18:53 Josafat Isaac MD is Attending Physician. snw 19:26 Patient has correct armband on for positive identification. Placed in gown. Bed in low wh position. Call light in reach. Side rails up X 1. Pulse ox on. NIBP on. 22:14 Inserted saline lock: 22 gauge in right antecubital area, using aseptic technique. wh Blood collected. 23:25 Transvaginal OB US In Process Unspecified. EDMS 23:53 No provider procedures requiring assistance completed. IV discontinued, intact, wh bleeding controlled, No redness/swelling at site. Administered Medications: 19:43 Drug: Phenergan 25 mg Route: PO; 20:28 Follow up: Response: No adverse reaction; Nausea unchanged wh 20:28 Drug: Phenergan 25 mg Route: IM; Site: right gluteus; wh 20:56 Follow up: Response: No adverse reaction; Nausea is decreased wh 20:56 Drug: Simethicone 240 mg Route: PO; wh 21:58 Follow up: Response: No adverse reaction 22:13 Drug: NS 0.9% 1000 ml Route: IV; Rate: 1 bolus; Site: right antecubital; 23:54 Follow up: Response: No adverse reaction; IV Status: Completed infusion 23:37 Drug: Tylenol 1000 mg Route: PO; ea 23:55 Follow up: Response: No adverse reaction; Pain is decreased Outcome: 23:33 Discharge ordered by . snw 23:53 Discharged to home ambulatory. 23:53 Condition: stable 23:53 Discharge instructions given to patient, Instructed on discharge instructions, follow up and referral plans. medication usage, POC Demonstrated understanding of instructions, follow-up care, medications, POC Prescriptions given X 2. 23:55 Patient left the ED. Signatures: Dispatcher [id number] [facility] Tami Richmond RN RN Marycruz Baltazar, SKIVER BLOCKERS-C SKIVER BLOCKERS-Csnw Reema Wheatley, RN RN Philip Tinsley Tommie RN RN tr5
--- NOTE | 2019-03-04 23:34 | EDPHYS ---
Physician Documentation [facility] Name: Thelma Modi Age: 23 yrs Sex: Female : 1995 Arrival Date: 03/04/2019 Time: 18:41 Bed 17 Private MD: ED Physician Josafat Isaac HPI: 03/04 19:35 This 23 yrs old Female presents to ER via Ambulatory with complaints of snw Abdominal Pain. 19:35 The patient presents with abdominal pain in the left upper quadrant, in the left lower snw quadrant. Onset: The symptoms/episode began/occurred gradually, 2 day(s) ago, and became persistent. The symptoms do not radiate. Associated signs and symptoms: Pertinent positives: nausea and vomiting, Pertinent negatives: blood in stools, diarrhea, fever, vomiting blood. The symptoms are described as steady. Severity of pain: At its worst the pain was moderate. It is unknown whether or not the patient has had similar symptoms in the past. It is unknown whether or not the patient has recently seen a physician. no vag bleeding. 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 - Social history:: Smoking status: Patient/guardian denies using tobacco. - Ebola Screening: : No symptoms or risks identified at this time. ROS: 19:35 Constitutional: Negative for fever, chills, and weight loss, Eyes: Negative for injury, snw pain, redness, and discharge, ENT: Negative for injury, pain, and discharge, Neck: Negative for injury, pain, and swelling, Cardiovascular: Negative for chest pain, palpitations, and edema, Respiratory: Negative for shortness of breath, cough, wheezing, and pleuritic chest pain, Back: Negative for injury and pain, : Negative for injury, bleeding, discharge, and swelling, MS/Extremity: Negative for injury and deformity, Skin: Negative for injury, rash, and discoloration, Neuro: Negative for headache, weakness, numbness, tingling, and seizure. 19:35 Abdomen/GI: Positive for abdominal pain, vomiting, of the anterior aspect of left lateral abdomen. Exam: 19:33 Constitutional: This is a well developed, well nourished patient who is awake, alert, snw and in no acute distress. Head/Face: Normocephalic, atraumatic. Eyes: Pupils equal round and reactive to light, extra-ocular motions intact. Lids and lashes normal. Conjunctiva and sclera are non-icteric and not injected. Cornea within normal limits. Periorbital areas with no swelling, redness, or edema. ENT: Nares patent. No nasal discharge, no septal abnormalities noted. Tympanic membranes are normal and external auditory canals are clear. Oropharynx with no redness, swelling, or masses, exudates, or evidence of obstruction, uvula midline. Mucous membranes moist. Neck: Trachea midline, no thyromegaly or masses palpated, and no cervical lymphadenopathy. Supple, full range of motion without nuchal rigidity, or vertebral point tenderness. No Meningismus. Chest/axilla: Normal chest wall appearance and motion. Nontender with no deformity. No lesions are appreciated. Cardiovascular: Regular rate and rhythm with a normal S1 and S2. No gallops, murmurs, or rubs. Normal PMI, no JVD. No pulse deficits. Respiratory: Lungs have equal breath sounds bilaterally, clear to auscultation and percussion. No rales, rhonchi or wheezes noted. No increased work of breathing, no retractions or nasal flaring. Back: No spinal tenderness. No costovertebral tenderness. Full range of motion. Skin: Warm, dry with normal turgor. Normal color with no rashes, no lesions, and no evidence of cellulitis. MS/ Extremity: Pulses equal, no cyanosis. Neurovascular intact. Full, normal range of motion. Neuro: Awake and alert, GCS 15, oriented to person, place, time, and situation. Cranial nerves II-XII grossly intact. Motor strength 5/5 in all extremities. Sensory grossly intact. Cerebellar exam normal. Normal gait. 19:33 Abdomen/GI: Inspection: obese Bowel sounds: normal, Palpation: mild abdominal tenderness, in the anterior aspect of left lateral abdomen. 19:33 Abdomen/GI: emesis/gastric contents smell of undigested food. Vital Signs: 18:43 BP 125 / 82; Pulse 68; Resp 18; Temp 97.9(O); Pulse Ox 97% ; Weight 122.47 kg; Height 5 sv ft. 6 in. (167.64 cm); Pain 7/10; 20:28 BP 116 / 82; Pulse 60; Resp 18; Pulse Ox 98% on R/A; wh 21:52 BP 110 / 81; Pulse 57; Resp 18; Pulse Ox 98% on R/A; wh 22:56 BP 137 / 91; Pulse 72; Resp 16; Pulse Ox 98% on R/A; wh 23:30 BP 118 / 84; Pulse 70; Resp 18; Pulse Ox 99% on R/A; wh 18:43 Body Mass Index 43.58 (122.47 kg, 167.64 cm) sv MDM: 19:17 Patient medically screened. snw 20:17 Data reviewed: vital signs, nurses notes. Data interpreted: Pulse oximetry: on room air snw is 97 %. Interpretation: normal. Counseling: I had a detailed discussion with the patient and/or guardian regarding: the historical points, exam findings, and any diagnostic results supporting the discharge/admit diagnosis, lab results, the need for outpatient follow up, to return to the emergency department if symptoms worsen or persist or if there are any questions or concerns that arise at home. Special discussion: Based on the patient's Hx, exam, and Dx evaluation, there is no indication for emergent surgery or inpatient Tx. It is understood by the patient/guardian that if the Sx's persist or worsen they need to return immediately for re-evaluation. Based on the history and exam findings, there is no indication for further emergent testing or inpatient evaluation. I discussed with the patient/guardian the need to see the OB Gyne specialist for further evaluation of the symptoms. 20:18 ED course: vomited po phenergan will give IM. snw 21:57 ED course: vomited again. will start IVF for hydration. snw 03/04 19:16 Order name: Urine Dipstick--Ancillary (enter results); Complete Time: 20:22 mw2 03/04 19:16 Order name: Urine --Ancillary (enter results); Complete Time: 20:22 mw2 03/04 19:16 Order name: Urine Microscopic Only; Complete Time: 19:50 snw 03/04 21:58 Order name: CBC with Diff; Complete Time: 23:27 snw 03/04 21:58 Order name: Chem 7; Complete Time: 22:43 snw 03/04 22:26 Order name: Manual Differential; Complete Time: 23:27 EDMS 03/04 19:16 Order name: Urine Test (obtain specimen); Complete Time: 19:18 snw 03/04 22:57 Order name: Transvaginal OB US snw 03/04 19:16 Order name: Urine Dipstick-Ancillary (obtain specimen); Complete Time: 19:18 snw Administered Medications: 19:43 Drug: Phenergan 25 mg Route: PO; wh 20:28 Follow up: Response: No adverse reaction; Nausea unchanged wh 20:28 Drug: Phenergan 25 mg Route: IM; Site: right gluteus; wh 20:56 Follow up: Response: No adverse reaction; Nausea is decreased wh 20:56 Drug: Simethicone 240 mg Route: PO; wh 21:58 Follow up: Response: No adverse reaction wh 22:13 Drug: NS 0.9% 1000 ml Route: IV; Rate: 1 bolus; Site: right antecubital; wh 23:54 Follow up: Response: No adverse reaction; IV Status: Completed infusion wh 23:37 Drug: Tylenol 1000 mg Route: PO; ea 23:55 Follow up: Response: No adverse reaction; Pain is decreased Disposition: 03/04/19 23:33 Discharged to Home. Impression: Unspecified abdominal pain, state, Threatened . - Condition is Stable. - Discharge Instructions: Abdominal Pain, Adult, Threatened Miscarriage, First Trimester of , Pelvic Rest. - Prescriptions for Vitamin 27- 0.8 mg Oral Tablet - take 1 tablet by ORAL route once daily; 60 tablet. promethazine 25 mg Oral Tablet - take 1 tablet by ORAL route every 6 hours As needed; 20 tablet. - Work release form, Medication Reconciliation Form, Thank You Letter, Antibiotic Education, Prescription Opioid Use form. - Follow up: Private Physician; When: Tomorrow; Reason: Recheck today's complaints, Continuance of care, Re-evaluation by your physician. Addendum: 03/06/2019 20:50 Co-signature as Attending Physician, Josafat Isaac MD Signing chart for administrative p s1 purposes.. Signatures: Dispatcher [employer] Tami Joshi, RN RN Marycruz Baltazar, DYE WEIGHER-C DYE WEIGHER-Lauraw Reema Wheatley, RN RN Philip Tinsley Phillip, MD MD ps1 Corrections: (The following items were deleted from the chart) 03/04 19:25 19:18 Transvaginal Ob+US.RAD.BRZ ordered. EDMS EDMS 23:55 23:33 03/04/2019 23:33 Discharged to Home. Impression: Unspecified abdominal pain; wh state; Threatened . Condition is Stable. Forms are Medication Reconciliation Form, Thank You Letter, Antibiotic Education, Prescription Opioid Use. Follow up: Private Physician; When: Tomorrow; Reason: Recheck today's complaints, Continuance of care, Re-evaluation by your physician. snw
[2019-03-04] MEDS ORDERED: ACETAMINOPHEN 500 MG TAB ONE (23:36)
[2019-03-05 00:45] VITALS: TEMP 97.9
[2019-03-05 00:50] VITALS: BP 118/84; O2SAT 99
--- NOTE | 2019-03-05 07:39 | RAD REPORT ---
EXAM DESCRIPTION: US - Transvaginal OB - 03/04/2019 11:26 pm CLINICAL HISTORY: with pelvic pain FINDINGS: A a gestational sac is present within the endometrium. Within this is a pole with a crown-rump length 1.6 centimeters. Cardiac activity 123 beats per minute. Small subchorionic bleed Right and left adnexal unremarkable Neither ovary was visualized secondary to overlying bowel gas. No significant free fluid . IMPRESSION: Single live intrauterine with an estimated gestational age 7 weeks 6 days SYED 10/15/2019 Small subchorionic bleed
== END 2019-03-04 23:55 | disposition home or self-care (01) ==
LOC: ER 18:39
DX: O20.0 Threatened abortion (principal); Z3A.01 Less than 8 weeks gestation of pregnancy
CPT/HCPCS: 96361; 85025; 80048; 36415; 81025; 76817; 96360; 96372; 99284; J2550; Q0169; J7030; 81003; 81015

== ENCOUNTER 2019-03-05 22:36 | Emergency (ER) | payer OTHER ==
--- OUTSIDE RECORDS SUMMARY | 2019-03-05 22:38 | XMS REPORT ---
:1995 [facility] [address] [place] [address] Dr. Gilman [address] [place] [id number] Care Team Providers Name Role Phone Unavailable Unavailable Unavailable Problems This patient has no known problems. Allergies, Adverse Reactions, Alerts This patient has no known allergies or adverse reactions. Medications This patient has no known medications.
[2019-03-05] MEDS ORDERED: NA CHLORIDE 0.9% 1,000 ML ONE (23:06)
[2019-03-05] MEDS ORDERED: PROMETHAZINE 25 MG/ML VIAL ONE (23:06)
[2019-03-05 23:11] LABS: Urine Blood NEGATIVE (NEG); Urine Glucose NEGATIVE (NEG); Urine Protein NEGATIVE (NEG); Urine Specific Gravity 1.015 (1.005-1.030); Urine pH 8.5 (5.0-7.0)
[2019-03-06] MEDS ORDERED: METOCLOPRAMIDE 10 MG/2mL INJ ONE (00:17)
[2019-03-06] MEDS ORDERED: DIPHENHYDRAMINE 50 MG/ML VIAL ONE (00:18)
--- NOTE | 2019-03-06 01:35 | ER ---
Nurse's Notes [facility] Name: Thelma Modi Age: 23 yrs Sex: Female : 1995 Arrival Date: 03/05/2019 Time: 22:38 Bed 6 Private MD: Diagnosis: Nausea and vomiting Presentation: 03/05 22:49 Presenting complaint: Patient states: she was seen in ER yesterday for same reason. Pt wh states she was fine all day but started having abdominal pain and nausea about 3 hours ago. Pt states prescription given for nausea medicine wasn't ready to be picked up. Transition of care: patient was not received from another setting of care. Onset of symptoms was March 05, 2019. Risk Assessment: Do you want to hurt yourself or someone else? Patient reports no desire to harm self or others. Initial Sepsis Screen: Does the patient meet any 2 criteria? No. Patient's initial sepsis screen is negative. Does the patient have a suspected source of infection? No. Patient's initial sepsis screen is negative. Care prior to arrival: None. 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 - Social history:: Smoking status: Patient/guardian denies using tobacco. - Ebola Screening: : Patient negative for fever greater than or equal to 101.5 degrees Fahrenheit, and additional compatible Ebola Virus Disease symptoms Patient denies exposure to infectious person. Screenin:50 Abuse screen: Denies threats or abuse. Denies injuries from another. Nutritional screening: No deficits noted. Tuberculosis screening: No symptoms or risk factors identified. Fall Risk None identified. Assessment: 22:51 General: Appears in no apparent distress. Behavior is calm, cooperative, appropriate for age. Pain: Complains of pain in left lower quadrant Pain does not radiate. Pain currently is 4 out of 10 on a pain scale. Pain began 3 hours ago. Neuro: Level of Consciousness is awake, alert, obeys commands, Oriented to person, place, time, situation, Appropriate for age. Cardiovascular: Heart tones S1 S2. Respiratory: Airway is patent Respiratory effort is even, unlabored, Respiratory pattern is regular, symmetrical, Breath sounds are clear bilaterally. GI: Abdomen is round non-distended, Bowel sounds present X 4 quads. Abd is soft and non tender X 4 quads. Reports nausea, vomiting. : No signs and/or symptoms were reported regarding the genitourinary system. EENT: No signs and/or symptoms were reported regarding the EENT system. Derm: Skin is intact, is healthy with good turgor, Skin is pink, warm \T\ dry. normal. Musculoskeletal: Circulation, motion, and sensation intact. 03/06 00:30 Reassessment: Patient appears in no apparent distress at this time. No changes from previously documented assessment. Patient and/or family updated on plan of care and expected duration. Pain level reassessed. Patient is alert, oriented x 3, equal unlabored respirations, skin warm/dry/pink. 01:45 Reassessment: Patient appears in no apparent distress at this time. No changes from previously documented assessment. Patient and/or family updated on plan of care and expected duration. Pain level reassessed. Patient is alert, oriented x 3, equal unlabored respirations, skin warm/dry/pink. Patient denies pain at this time. Patient states feeling better. Patient states symptoms have improved. Vital Signs: 03/05 22:52 BP 121 / 82; Pulse 70; Resp 18; Temp 97.8; Pulse Ox 100% ; Weight 122.47 kg; Height 5 ft. 6 in. (167.64 cm); 03/06 00:30 BP 109 / 85; Pulse 55; Resp 18; Pulse Ox 98% on R/A; 01:45 BP 95 / 47; Pulse 55; Resp 18; Pulse Ox 97% on R/A; 03/05 22:52 Body Mass Index 43.58 (122.47 kg, 167.64 cm) ED Course: 03/05 22:38 Patient arrived in ED. ag3 22:41 Rodney Piper FNP-C [facility] la1 22:41 Jason Valencia MD is Attending Physician. la1 22:48 Philip Chang is Primary Nurse. 22:50 Triage completed. 22:51 Arm band placed on right wrist. 22:51 Patient has correct armband on for positive identification. Placed in gown. Bed in low wh position. Call light in reach. Side rails up X 1. Pulse ox on. NIBP on. 23:09 Inserted saline lock: 22 gauge in left antecubital area, using aseptic technique. 03/06 01:45 No provider procedures requiring assistance completed. IV discontinued, intact, bleeding controlled, No redness/swelling at site. Administered Medications: 03/05 23:09 Drug: NS 0.9% 1000 ml Route: IV; Rate: 1000 ml; Site: left antecubital; 03/06 00:22 Follow up: Response: No adverse reaction; IV Status: Completed infusion 03/05 23:09 Drug: Phenergan 12.5 mg Route: IVP; Site: left antecubital; 03/06 00:22 Follow up: Response: No adverse reaction; Nausea unchanged 00:20 Drug: Benadryl 25 mg Route: IVP; Site: left antecubital; 01:44 Follow up: Response: No adverse reaction 00:22 Drug: Reglan 10 mg Route: IVP; Site: left antecubital; 01:44 Follow up: Response: No adverse reaction; Nausea is decreased Outcome: 01:34 Discharge ordered by MD. munoz 01:45 Discharged to home ambulatory, with family. 01:45 Condition: stable 01:45 Discharge instructions given to patient, family, Instructed on discharge instructions, follow up and referral plans. POC Demonstrated understanding of instructions, follow-up care, POC 01:46 Patient left the ED. Signatures: Rodney Piper, BELIA-C COMPRESSED AIR PILE DRIVER OPERATOR-Cla1 Philip Chang Lucita Leary3
--- NOTE | 2019-03-06 01:35 | EDPHYS ---
Physician Documentation [facility] Name: Thelma Modi Age: 23 yrs Sex: Female : 1995 Arrival Date: 03/05/2019 Time: 22:38 Bed 6 Private MD: ED Physician Jason Valencia HPI: 03/05 23:02 This 23 yrs old Female presents to ER via Ambulatory with complaints of la1 Vomiting, Abdominal Pain. 23:02 The patient presents to the emergency department with nausea, vomiting, 5 times since la1 the onset of symptoms, described as bilious. Onset: The symptoms/episode began/occurred 3 hour(s) ago. Possible causes: . The symptoms are aggravated by nothing. The symptoms are alleviated by prescription meds. Associated signs and symptoms: Pertinent positives: abdominal pain, Pertinent negatives: GI bleeding, hematuria, vaginal discharge. Severity of symptoms: At their worst the symptoms were moderate. The patient has experienced similar episodes in the past. The patient has been recently seen at the [facility] Emergency [facility], yesterday, for similar complaints labs were performed, an ultrasound was performed, was given IV fluids, was given a prescription for an antiemetic. LUMBER STRAIGHTENED: 22:51 Verified wh Historical: - Allergies: 22:51 No Known Allergies; - Home Meds: 22:51 None [Active]; - PMHx: 22:51 None; - PSHx: 22:51 None; - Immunization history:: Adult Immunizations up to date. - Social history:: Smoking status: Patient/guardian denies using tobacco. - Ebola Screening: : Patient negative for fever greater than or equal to 101.5 degrees Fahrenheit, and additional compatible Ebola Virus Disease symptoms Patient denies exposure to infectious person. ROS: 23:46 Constitutional: Negative for fever, chills, and weight loss, Eyes: Negative for injury, la1 pain, redness, and discharge, ENT: Negative for injury, pain, and discharge, Neck: Negative for injury, pain, and swelling, Cardiovascular: Negative for chest pain, palpitations, and edema, Respiratory: Negative for shortness of breath, cough, wheezing, and pleuritic chest pain, Abdomen/GI: Negative for abdominal pain, nausea, vomiting, diarrhea, and constipation, Back: Negative for injury and pain, MS/Extremity: Negative for injury and deformity, Neuro: Negative for headache, weakness, numbness, tingling, and seizure. Exam: 23:46 Constitutional: This is a well developed, well nourished patient who is awake, alert, la1 and in no acute distress. Head/Face: Normocephalic, atraumatic. Eyes: Pupils equal round and reactive to light, extra-ocular motions intact. Periorbital areas with no swelling, redness, or edema. ENT: Mucous membranes moist. Neck: Trachea midline, no thyromegaly or masses palpated, and no cervical lymphadenopathy. Supple, full range of motion without nuchal rigidity, or vertebral point tenderness. No Meningismus. Chest/axilla: Normal chest wall appearance and motion. Nontender with no deformity. No lesions are appreciated. Cardiovascular: Regular rate and rhythm with a normal S1 and S2. No gallops, murmurs, or rubs. Normal PMI, no JVD. No pulse deficits. Respiratory: Lungs have equal breath sounds bilaterally, clear to auscultation No rales, rhonchi or wheezes noted. No increased work of breathing, no retractions or nasal flaring. Abdomen/GI: Soft, non-tender, with normal bowel sounds. No distension No guarding or rebound. No evidence of tenderness throughout. Vital Signs: 22:52 BP 121 / 82; Pulse 70; Resp 18; Temp 97.8; Pulse Ox 100% ; Weight 122.47 kg; Height 5 wh ft. 6 in. (167.64 cm); 03/06 00:30 BP 109 / 85; Pulse 55; Resp 18; Pulse Ox 98% on R/A; 01:45 BP 95 / 47; Pulse 55; Resp 18; Pulse Ox 97% on R/A; 03/05 22:52 Body Mass Index 43.58 (122.47 kg, 167.64 cm) MDM: 03/05 22:41 Patient medically screened. la1 03/06 01:33 Data reviewed: vital signs, nurses notes, lab test result(s), I have discussed the la1 patient's presentation/case with the attending Emergency Department Physician; and as a result, I will discharge patient. Data interpreted: Pulse oximetry: on is 100 %. Interpretation: normal. Counseling: I had a detailed discussion with the patient and/or guardian regarding: the historical points, exam findings, and any diagnostic results supporting the discharge/admit diagnosis, the presence of at least one elevated blood pressure reading (>120/80) during this emergency department visit, lab results, the need for outpatient follow up, an OB/Gyne specialist. ED course: Pt tolerating PO, states pain is resolved. Will fill RX in the morning for Phenergan. Return precautions given. 03/05 22:58 Order name: Urine Dipstick--Ancillary (enter results); Complete Time: 23:18 mw2 03/05 22:58 Order name: Urine --Ancillary (enter results); Complete Time: 23:18 mw2 Administered Medications: 03/05 23:09 Drug: NS 0.9% 1000 ml Route: IV; Rate: 1000 ml; Site: left antecubital; 03/06 00:22 Follow up: Response: No adverse reaction; IV Status: Completed infusion 03/05 23:09 Drug: Phenergan 12.5 mg Route: IVP; Site: left antecubital; 03/06 00:22 Follow up: Response: No adverse reaction; Nausea unchanged 00:20 Drug: Benadryl 25 mg Route: IVP; Site: left antecubital; 01:44 Follow up: Response: No adverse reaction 00:22 Drug: Reglan 10 mg Route: IVP; Site: left antecubital; 01:44 Follow up: Response: No adverse reaction; Nausea is decreased Disposition: 07:25 Co-signature as Attending Physician, Jason Valencia MD I agree with the assessment and az plan of care. Disposition: 03/06/19 01:34 Discharged to Home. Impression: Nausea and vomiting. - Condition is Stable. - Discharge Instructions: Abdominal Pain During , Nausea and Vomiting, Adult. - Work release form, Medication Reconciliation Form, Thank You Letter, Antibiotic Education, Prescription Opioid Use form. - Follow up: Private Physician; When: 2 - 3 days; Reason: Recheck today's complaints, Re-evaluation by your physician. - Problem is an ongoing problem. - Symptoms have improved. Signatures: Dispatcher [employer] EDMS Rodney Piper, BELIA-C OUTSIDE EVENT SALES SPECIALIST-Cla1 Philip Chang Jason Valencia MD MD az Corrections: (The following items were deleted from the chart) 01:46 01:34 03/06/2019 01:34 Discharged to Home. Impression: Nausea and vomiting. Condition wh is Stable. Forms are Medication Reconciliation Form, Thank You Letter, Antibiotic Education, Prescription Opioid Use. Follow up: Private Physician; When: 2 - 3 days; Reason: Recheck today's complaints, Re-evaluation by your physician. Problem is an ongoing problem. Symptoms have improved. la1
[2019-03-06 09:50] VITALS: TEMP 97.8
[2019-03-06 09:53] VITALS: BP 95/47; O2SAT 97
== END 2019-03-06 01:46 | disposition home or self-care (01) ==
LOC: ER 22:36
DX: O21.9 Vomiting of pregnancy, unspecified (principal); Z3A.00 Weeks of gestation of pregnancy not specified
CPT/HCPCS: 96361; 81025; 81003; 96375; 96374; 99283; J2765; J2550; J1200; J7030

== ENCOUNTER 2019-03-06 22:46 | Emergency (ER) | payer OTHER ==
--- OUTSIDE RECORDS SUMMARY | 2019-03-06 22:48 | XMS REPORT ---
:1995 [facility] Address [address] [place] [address] Dr. Gilman [address] [place] [id number] Care Team Providers Name Role Phone Unavailable Unavailable Unavailable Problems This patient has no known problems. Allergies, Adverse Reactions, Alerts This patient has no known allergies or adverse reactions. Medications This patient has no known medications.
[2019-03-06] MEDS ORDERED: PROMETHAZINE 25 MG/ML VIAL ONE (23:39)
[2019-03-06] MEDS ORDERED: NA CHLORIDE 0.9% 1,000 ML ONE (23:39)
[2019-03-07 00:02] LABS: Absolute Lymphocytes (CBC) 1.1 K/uL (0.7-4.9); Basophils % 0.4 % (0-1.3); Hematocrit 40.1 % (36.0-45.0); Lymphocytes % 9.4 % (15.3-44.8); MPV 9.3 fL (7.6-11.3); RBC Red Blood Cell Count 4.52 M/uL (3.86-4.86)
[2019-03-07 00:13] LABS: BUN Blood Urea Nitrogen 5 mg/dL (7-18); Bicarbonate 25 mmol/L (21-32); Glucose Level 91 mg/dL (74-106); Potassium 3.7 mmol/L (3.5-5.1); Sodium Level 138 mmol/L (136-145)
--- NOTE | 2019-03-07 01:58 | ER ---
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 States she has also been having cramping as well and was seen here the past 2 days for it but she came back today when she started having the bleeding. Transition of care: patient was not received from another setting of care. Onset of symptoms was March 06, 2019. Risk Assessment: Do you want to hurt yourself or someone else? Patient reports no desire to harm self or others. Initial Sepsis Screen: Does the patient meet any 2 criteria? No. Patient's initial sepsis screen is negative. Does the patient have a suspected source of infection? No. Patient's initial sepsis screen is negative. Care prior to arrival: None. 22:52 Method Of Arrival: Ambulatory aa1 22:52 Acuity: OC 3 aa1 Triage Assessment: 22:53 General: Appears in no apparent distress. comfortable, Behavior is calm, cooperative, aa1 appropriate for age. BODY TRIMMER: 22:53 LMP 12/16/2018 aa1 03/07 00:37 2, 1 la1 Historical: - Allergies: 03/06 22:53 No Known Allergies; aa1 - Home Meds: 22:53 None [Active]; aa1 - PMHx: 22:53 None; aa1 - PSHx: 22:53 None; aa1 - Immunization history:: Flu vaccine is up to date. - Social history:: Smoking status: Patient/guardian denies using tobacco. - Ebola Screening: : No symptoms or risks identified at this time. Screenin:25 Abuse screen: Denies threats or abuse. Denies injuries from another. Nutritional lp1 screening: No deficits noted. Tuberculosis screening: No symptoms or risk factors identified. Fall Risk None identified. Assessment: 23:22 General: Appears in no apparent distress. Behavior is calm, cooperative, appropriate lp1 for age. Pain: Complains of pain in suprapubic area Pain currently is 8 out of 10 on a pain scale. Quality of pain is described as sharp. Neuro: Level of Consciousness is awake, alert, obeys commands, Oriented to person, place, time, situation. Cardiovascular: Patient's skin is warm and dry. Respiratory: Respiratory effort is even, unlabored. GI: Abdomen is non-distended, Reports nausea, vomiting. : Reports vaginal bleeding that is bright red, since today. EENT: No deficits noted. Derm: Skin is pink, warm \T\ dry. Musculoskeletal: No deficits noted. 03/07 00:30 Reassessment: Patient ambulating to bathroom at this time. lp1 00:37 Reassessment: Patient states unable to provide urine sample. lp1 00:45 Reassessment: Patient states relief of nausea and pelvic pain at this time. lp1 02:00 Reassessment: Patient appears in no apparent distress at this time. Patient and/or lp1 family updated on plan of care and expected duration. Pain level reassessed. Patient is alert, oriented x 3, equal unlabored respirations, skin warm/dry/pink. Patient states feeling better. Vital Signs: 03/06 22:53 BP 125 / 79; Pulse 61; Resp 18; Temp 97.6; Pulse Ox 97% on R/A; Weight 122.47 kg; aa1 Height 5 ft. 6 in. (167.64 cm); Pain 8/10; 03/07 01:30 BP 112 / 79; Pulse 78; Resp 16; Pulse Ox 99% on R/A; lp1 03/06 22:53 Body Mass Index 43.58 (122.47 kg, 167.64 cm) aa1 ED Course: 03/06 22:48 Patient arrived in ED. cl3 22:53 Triage completed. aa1 22:53 Arm band placed on right wrist. Patient placed in waiting room, Patient notified of aa1 wait time. 23:18 Rodney Piper FNP-C [facility] la1 23:18 Dimas Sun MD is Attending Physician. la1 23:22 Kaleigh Choudhury, ELO is Primary Nurse. lp1 23:25 Patient has correct armband on for positive identification. lp1 23:45 Initial lab(s) drawn, by me, sent to lab. T\T\S collected, blood band applied to patient. lp1 Missed attempt(s): 22 gauge in right antecubital area. 23:55 Inserted saline lock: 22 gauge in right hand, using aseptic technique. lp1 03/07 02:16 No provider procedures requiring assistance completed. IV discontinued, No lp1 redness/swelling at site. Pressure dressing applied. Administered Medications: 03/06 23:59 Drug: NS 0.9% 1000 ml Route: IV; Rate: 1000 ml; Site: right hand; lp1 03/07 01:30 Follow up: IV Status: Completed infusion; IV Intake: 1000ml lp1 03/06 23:59 Drug: Phenergan 12.5 mg Route: IVP; Site: right hand; lp1 03/07 00:30 Follow up: Response: Nausea is decreased lp1 Intake: 01:30 IV: 1000ml; Total: 1000ml. lp1 Outcome: 01:57 Discharge ordered by . la1 02:16 Discharged to home ambulatory, with significant other. lp1 02:16 Condition: good 02:16 Discharge instructions given to patient, Instructed on discharge instructions, follow up and referral plans. Demonstrated understanding of instructions, follow-up care. 02:18 Patient left the ED. lp1 Signatures: Camila Victoria RN RN aa1 Kaleigh Choudhury RN RN lp1 Rodney Piper, STITCHER SPECIAL MACHINE-C STITCHER SPECIAL MACHINE-Rodger1 Jamaal White cl3
--- NOTE | 2019-03-07 01:58 | EDPHYS ---
Physician Documentation [facility] Name: Thelma Modi Age: 23 yrs Sex: Female : 1995 Arrival Date: 03/06/2019 Time: 22:48 Bed 19 Private MD: ED Physician Dimas Sun HPI: 03/07 00:37 This 23 yrs old Female presents to ER via Ambulatory with complaints of la1 Vaginal Bleeding. 00:37 The patient presents with vaginal bleeding that is moderate, with clots, reports using la1 1 pads or tampons per day. Onset: The symptoms/episode began/occurred 1 hour(s) ago. Modifying factors: The symptoms are alleviated by nothing, the symptoms are aggravated by nothing. Associated signs and symptoms: Pertinent negatives: constipation, cramping, diarrhea, dyspareunia, fever, nausea, urinary frequency. Severity of symptoms: At their worst the symptoms were mild. The patient has experienced a previous episode. Pt reports that she began having vaginal bleeding with small clots in addition to lower abd pain. Pt with US 2 days ago that shows IUP with cardiac activity with rate of 123 and a small subchorionic bleed. Pt has not started bleeding until today, last miscarriage occurred around 9 weeks gestation. Pt also C/O N/V. 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 - Social history:: Smoking status: Patient/guardian denies using tobacco. - Ebola Screening: : No symptoms or risks identified at this time. ROS: 03/07 00:40 Positive for vaginal bleeding, Negative for injury or acute deformity, urinary la1 symptoms, urinary frequency, hematuria, pelvic pain, flank pain, burning with urination, difficulty urinating, bladder incontinence, foul smelling urine, vaginal itching, menstrual abnormality. Constitutional: Negative for fever, chills, and weight loss, Eyes: Negative for injury, pain, redness, and discharge, ENT: Negative for injury, pain, and discharge, Neck: Negative for injury, pain, and swelling, Cardiovascular: Negative for chest pain, palpitations, and edema, Respiratory: Negative for shortness of breath, cough, wheezing, and pleuritic chest pain, Abdomen/GI: Negative for abdominal pain, nausea, vomiting, diarrhea, and constipation, Back: Negative for injury and pain. MS/Extremity: Negative for injury and deformity, Neuro: Negative for headache, weakness, numbness, tingling, and seizure. Exam: 00:41 Constitutional: This is a well developed, well nourished patient who is awake, alert, la1 and in no acute distress. Head/Face: Normocephalic, atraumatic. Eyes: Pupils equal round and reactive to light, extra-ocular motions intact. Periorbital areas with no swelling, redness, or edema. ENT: Mucous membranes moist. Neck: No Meningismus. Chest/axilla: Normal chest wall appearance and motion. Nontender with no deformity. No lesions are appreciated. Cardiovascular: Regular rate and rhythm with a normal S1 and S2. No gallops, murmurs, or rubs. Normal PMI, no JVD. No pulse deficits. Respiratory: Lungs have equal breath sounds bilaterally, clear to auscultation No rales, rhonchi or wheezes noted. No increased work of breathing, no retractions or nasal flaring. Abdomen/GI: Soft, non-tender, with normal bowel sounds. No guarding or rebound. No evidence of tenderness throughout. Back: No spinal tenderness. No costovertebral tenderness. Full range of motion. Skin: Warm, dry with normal turgor. Normal color with no rashes, no lesions, and no evidence of cellulitis. Neuro: Awake and alert, GCS 15, oriented to person, place, time, and situation. Normal gait. Vital Signs: 03/06 22:53 BP 125 / 79; Pulse 61; Resp 18; Temp 97.6; Pulse Ox 97% on R/A; Weight 122.47 kg; aa1 Height 5 ft. 6 in. (167.64 cm); Pain 8/; 03/07 01:30 BP 112 / 79; Pulse 78; Resp 16; Pulse Ox 99% on R/A; lp1 03/06 22:53 Body Mass Index 43.58 (122.47 kg, 167.64 cm) aa1 MDM: 03/06 23:18 Patient medically screened. [facility] 03/07 01:55 Data reviewed: vital signs, nurses notes, lab test result(s), I have discussed the [facility] patient's presentation/case with the attending Emergency Department Physician; and as a result, I will discharge patient. Data interpreted: Pulse oximetry: on room air is 99 %. Counseling: I had a detailed discussion with the patient and/or guardian regarding: the historical points, exam findings, and any diagnostic results supporting the discharge/admit diagnosis, lab results, radiology results, the need for outpatient follow up, an OB/Gyne specialist. Medication response: Phenergan relieved the patient's nausea. ED course: PT has only changed pad one time since she has been here and there are no longer any clots, has confirmed IUP 2 days ago here with US, tolerating PO, will call and schedule FU with OB in the morning, states she is feeling much better. RH +. 03/06 23:35 Order name: Abo/rh Typing; Complete Time: 00:41 [facility] 03/06 23:35 Order name: Basic Metabolic Panel; Complete Time: 00:35 [facility] 03/06 23:35 Order name: CBC with Diff [facility] 03/06 23:35 Order name: IV Saline Lock; Complete Time: 00:01 [facility] 03/06 23:35 Order name: Labs collected and sent; Complete Time: 00:01 [facility] 03/06 23:35 Order name: NPO; Complete Time: 00:01 [facility] Administered Medications: 03/06 23:59 Drug: NS 0.9% 1000 ml Route: IV; Rate: 1000 ml; Site: right hand; [facility] 03/07 01:30 Follow up: IV Status: Completed infusion; IV Intake: 1000ml [facility] 03/06 23:59 Drug: Phenergan 12.5 mg Route: IVP; Site: right hand; [facility] 03/07 00:30 Follow up: Response: Nausea is decreased 1 Disposition: 04:48 Co-signature as Attending Physician, Dimas Sun MD I agree with the assessment and tw4 plan of care. Disposition: 03/07/19 01:57 Discharged to Home. Impression: Threatened . - Condition is Stable. - Discharge Instructions: Threatened Miscarriage, Vaginal Bleeding During , First Trimester, Pelvic Rest. - Medication Reconciliation Form, Thank You Letter form. - Follow up: Private Physician; When: 2 - 3 days; Reason: Recheck today's complaints, Re-evaluation by your physician. - Problem is new. - Symptoms are unchanged. Signatures: Dispatcher [employer] EDMS Camila Victoria RN RN aa1 Kaleigh Choudhury RN RN lp1 Rodney Piper, CAR RACER-C CAR RACER-Cla1 Dimas Sun MD MD tw4 Corrections: (The following items were deleted from the chart) 02:18 01:57 03/07/2019 01:57 Discharged to Home. Impression: Threatened . Condition lp1 is Stable. Forms are Medication Reconciliation Form, Thank You Letter, Antibiotic Education, Prescription Opioid Use. Follow up: Private Physician; When: 2 - 3 days; Reason: Recheck today's complaints, Re-evaluation by your physician. Problem is new. Symptoms are unchanged. la1
[2019-03-07 03:00] LABS: Platelet Estimate ADEQ; Urine White Blood Cell Casts OK
[2019-03-07 03:01] LABS: Blood Morphology Comment NOT SEEN (NOT SEEN)
[2019-03-07 05:33] VITALS: TEMP 97.6
[2019-03-07 05:35] VITALS: BP 112/79; O2SAT 99
== END 2019-03-07 02:18 | disposition home or self-care (01) ==
LOC: ER 22:46
DX: O20.0 Threatened abortion (principal); Z3A.10 10 weeks gestation of pregnancy
CPT/HCPCS: 96361; 85025; 80048; 36415; 86900; 86901; 96374; 99283; J2550; J7030

== ENCOUNTER 2020-05-20 08:21 | Emergency (ER) | payer OTHER ==
--- OUTSIDE RECORDS SUMMARY | 2020-05-20 08:27 | XMS REPORT | Continuity of Care Document ---
:1995 Author Organization [facility] t Address [address] [place] [address] Dr. Gilman [address] [place] [id number] Care Team Providers Name Role Phone Unavailable Unavailable Unavailable Problems This patient has no known problems. Allergies, Adverse Reactions, Alerts This patient has no known allergies or adverse reactions. Medications This patient has no known medications. Procedures This patient has no known procedures. Results This patient has no known results.
[2020-05-20] MEDS ORDERED: MAGNES/ALUMIN/SIMET 30ML UCUP ONE (09:28)
[2020-05-20] MEDS ORDERED: LIDOCAINE VISCOUS 2% SOLN 15 ML UDC ONE (09:28)
--- NOTE | 2020-05-20 10:55 | ER ---
Nurse's Notes [facility] Name: Thelma Modi Age: 24 yrs Sex: Female : 1995 Arrival Date: 05/20/2020 Time: 08:23 Bed 11 Private MD: Diagnosis: Acute pharyngitis Presentation: 05/20 09:12 Chief complaint: Patient states: sore throat x3 days. Coronavirus screen: At this time, tw2 the client does not indicate any symptoms associated with coronavirus-19. Ebola Screen: Patient denies travel to an Ebola-affected area in the 21 days before illness onset. Initial Sepsis Screen: Does the patient meet any 2 criteria? No. Patient's initial sepsis screen is negative. Does the patient have a suspected source of infection? No. Patient's initial sepsis screen is negative. Risk Assessment: Do you want to hurt yourself or someone else? Patient reports no desire to harm self or others. Onset of symptoms was May 17, 2020. 09:12 Method Of Arrival: Ambulatory tw2 09:12 Acuity: OC 4 tw2 09:14 Note pt reports "i am , i just took a test", LMP 03/26/2020. tw2 Triage Assessment: 09:14 General: Appears in no apparent distress. obese, well groomed, Behavior is calm, tw2 cooperative, appropriate for age. Pain: Complains of pain in uvula, left aspect of posterior pharynx and right aspect of posterior pharynx. EENT: No signs and/or symptoms were reported regarding the EENT system. Respiratory: Airway is patent Respiratory effort is even, unlabored, Respiratory pattern is regular, symmetrical. Historical: - Allergies: 09:14 No Known Allergies; tw2 - Home Meds: 09:14 None [Active]; tw2 - PMHx: 09:14 None; tw2 - PSHx: 09:14 None; tw2 - Immunization history:: Adult Immunizations. - Social history:: Smoking status: Patient denies any tobacco usage or history of. Screenin:00 Abuse screen: Denies threats or abuse. Nutritional screening: No deficits noted. aa5 Tuberculosis screening: No symptoms or risk factors identified. Fall Risk None identified. Assessment: 09:00 General: Appears comfortable, Behavior is calm, cooperative. Pain: Complains of pain in aa5 throat. Neuro: Level of Consciousness is awake, alert, obeys commands, Oriented to person, place, time, situation. Cardiovascular: Patient's skin is warm and dry. Respiratory: Airway is patent Respiratory effort is even, unlabored, Respiratory pattern is regular, symmetrical, Breath sounds are clear bilaterally. GI: No signs and/or symptoms were reported involving the gastrointestinal system. : No signs and/or symptoms were reported regarding the genitourinary system. EENT: Throat is reddened. Derm: Skin is pink, warm \\T\\ dry. Musculoskeletal: Range of motion: intact in all extremities. 11:08 Reassessment: Patient is alert, oriented x 3, equal unlabored respirations, skin aa5 warm/dry/pink. Vital Signs: 09:12 BP 119 / 75; Pulse 75; Resp 17; Temp 97.9(TE); Pulse Ox 97% on R/A; Weight 127.01 kg tw2 (R); Height 5 ft. 5 in. (165.10 cm); 11:00 BP 120 / 80; Pulse 78; Resp 18 S; Pulse Ox 100% on R/A; aa5 09:12 Body Mass Index 46.59 (127.01 kg, 165.10 cm) tw2 ED Course: 08:23 Patient arrived in ED. am2 08:58 Kamala Duncan FNP-C [facility]. kb 08:58 Jose Head MD is Attending Physician. kb 09:00 Strep swab sent to lab. kj1 09:00 Patient has correct armband on for positive identification. Bed in low position. Call aa5 light in reach. Side rails up X 1. 09:00 Arm band placed on. aa5 09:09 Leti Francois, ELO is Primary Nurse. aa5 09:09 Strep Sent. kj1 09:13 Triage completed. tw2 11:08 No provider procedures requiring assistance completed. Patient did not have IV access aa5 during this emergency room visit. Administered Medications: 09:22 Drug: GI Cocktail without - (Maalox Suspension 30 ml, Lidocaine Liquid 2 % 15 aa5 ml) Route: PO; Outcome: 10:54 Discharge ordered by . claudy 11:08 Discharged to home ambulatory. aa5 11:08 Condition: stable 11:08 Discharge instructions given to patient, Instructed on discharge instructions, follow up and referral plans. Demonstrated understanding of instructions, follow-up care. 11:11 Patient left the ED. aa5 Signatures: Kamala Duncan FNP-C FNP-Leti Whitley RN RN aa5 Ny Mina RN RN tw2 Jenelle Rodriguez am2 Krysta Duncan kj1 Corrections: (The following items were deleted from the chart) 10:12 09:14 Arm band placed on tw2 aa5
--- NOTE | 2020-05-20 10:55 | EDPHYS ---
Physician Documentation [facility] Name: Thelma Modi Age: 24 yrs Sex: Female : 1995 Arrival Date: 05/20/2020 Time: 08: Bed 11 Private MD: ED Physician Jose Head HPI: 05/20 09:03 This 24 yrs old Female presents to ER via Unassigned with complaints of Sore kb Throat. 09:03 The patient presents with sore throat. The patient describes throat pain as constant. kb Onset: The symptoms/episode began/occurred 2 day(s) ago. Severity of symptoms: At their worst the symptoms were moderate, in the emergency department the symptoms are unchanged. Modifying factors: The symptoms are alleviated by nothing, the symptoms are aggravated by swallowing, Patient's oral intake status: good. Associated signs and symptoms: Pertinent positives: Sore throat Pertinent negatives chest pain, chills, cough, diarrhea, dysphagia, earache, fever, flu-like symptoms, headache, nausea, rhinorrhea, shortness of breath, vomiting. The patient has not experienced similar symptoms in the past. The patient has not recently seen a physician. Pt reports throat irritation for 2 days, woke up with pain this morning. States pain has gotten worse. Historical: - Allergies: 09:14 No Known Allergies; tw2 - Home Meds: 09:14 None [Active]; tw2 - PMHx: 09:14 None; tw2 - PSHx: 09:14 None; tw2 - Immunization history:: Adult Immunizations. - Social history:: Smoking status: Patient denies any tobacco usage or history of. ROS: 09:02 Constitutional: Negative for fever, chills, and weight loss, Cardiovascular: Negative kb for chest pain, palpitations, and edema, Respiratory: Negative for shortness of breath, cough, wheezing, and pleuritic chest pain, Abdomen/GI: Negative for abdominal pain, nausea, vomiting, diarrhea, and constipation, MS/Extremity: Negative for injury and deformity, Skin: Negative for injury, rash, and discoloration, Neuro: Negative for headache, weakness, numbness, tingling, and seizure. 09:02 ENT: Positive for sore throat. Exam: 09:02 Constitutional: This is a well developed, well nourished patient who is awake, alert, kb and in no acute distress. Head/Face: Normocephalic, atraumatic. Neck: Trachea midline, no thyromegaly or masses palpated, and no cervical lymphadenopathy. Supple, full range of motion without nuchal rigidity, or vertebral point tenderness. No Meningismus. Cardiovascular: Regular rate and rhythm with a normal S1 and S2. No gallops, murmurs, or rubs. Normal PMI, no JVD. No pulse deficits. Respiratory: Lungs have equal breath sounds bilaterally, clear to auscultation and percussion. No rales, rhonchi or wheezes noted. No increased work of breathing, no retractions or nasal flaring. Skin: Warm, dry with normal turgor. Normal color with no rashes, no lesions, and no evidence of cellulitis. MS/ Extremity: Pulses equal, no cyanosis. Neurovascular intact. Full, normal range of motion. 09:02 ENT: Posterior pharynx: Airway: normal, no evidence of obstruction, Tonsils: bilaterally enlarged, with erythema, Uvula: normal, midline, non-edematous, no erythema, swelling, that is mild, erythema, that is mild. 09:02 Neuro: Orientation: is normal, to person, place, time \T\ situation. Mentation: is normal, able to follow commands, Motor: is normal, moves all fours, Sensation: is normal, Gait: is steady. Vital Signs: 09:12 BP 119 / 75; Pulse 75; Resp 17; Temp 97.9(TE); Pulse Ox 97% on R/A; Weight 127.01 kg tw2 (R); Height 5 ft. 5 in. (165.10 cm); 11:00 BP 120 / 80; Pulse 78; Resp 18 S; Pulse Ox 100% on R/A; aa5 09:12 Body Mass Index 46.59 (127.01 kg, 165.10 cm) tw2 MDM: 08:58 Patient medically screened. kb 09:02 Data reviewed: vital signs, nurses notes. Data interpreted: Pulse oximetry: on room air kb is 100 %. Interpretation: normal. 10:54 Counseling: I had a detailed discussion with the patient and/or guardian regarding: the kb historical points, exam findings, and any diagnostic results supporting the discharge/admit diagnosis, lab results, the need for outpatient follow up, a family practitioner, to return to the emergency department if symptoms worsen or persist or if there are any questions or concerns that arise at home. 05/20 09:02 Order name: Strep; Complete Time: 09:44 kb 05/20 09:45 Order name: Throat Culture EDMS Administered Medications: 09:22 Drug: GI Cocktail without - (Maalox Suspension 30 ml, Lidocaine Liquid 2 % 15 aa5 ml) Route: PO; Disposition: 15:24 Co-signature as Attending Physician, Jose Head MD I agree with the assessment and kdr plan of care. Disposition: 05/20/20 10:54 Discharged to Home. Impression: Acute pharyngitis. - Condition is Stable. - Discharge Instructions: Pharyngitis, [id number], Sore Throat, [id number]. - Medication Reconciliation Form, Thank You Letter, Antibiotic Education, Prescription Opioid Use, Work release form form. - Follow up: Emergency Department; When: As needed; Reason: Worsening of condition. Follow up: Private Physician; When: 2 - 3 days; Reason: Recheck today's complaints, Continuance of care, Re-evaluation by your physician. Signatures: Dispatcher [employer] EDMS Kamala Duncan, BELIA-C DISK GRINDER-Jose Rhodes MD MD [facility] Leti Francois, RN RN aa5 Ny Mina RN RN tw2 Corrections: (The following items were deleted from the chart) 11:11 10:54 05/20/2020 10:54 Discharged to Home. Impression: Acute pharyngitis. Condition is aa5 Stable. Forms are Work release form, Medication Reconciliation Form, Thank You Letter, Antibiotic Education, Prescription Opioid Use. Follow up: Emergency Department; When: As needed; Reason: Worsening of condition. Follow up: Private Physician; When: 2 - 3 days; Reason: Recheck today's complaints, Continuance of care, Re-evaluation by your physician. kb
[2020-05-20 11:16] VITALS: BP 119/75; TEMP 97.9; O2SAT 97
== END 2020-05-20 11:11 | disposition home or self-care (01) ==
LOC: ER 08:21
DX: J02.9 Acute pharyngitis, unspecified (principal)
CPT/HCPCS: 87070; 87081; 99283

== ENCOUNTER 2020-07-31 09:48 | Emergency (ER) | payer OTHER ==
--- OUTSIDE RECORDS SUMMARY | 2020-07-31 09:51 | XMS REPORT | Continuity of Care Document ---
:1995 Author Organization [facility] t Address [address] [place] [address] Care Team Providers Name Role Phone Pgy3 Attending Clinician Unavailable Fabio Blanco Attending Clinician Problems This patient has no known problems. Allergies, Adverse Reactions, Alerts This patient has no known allergies or adverse reactions. Medications This patient has no known medications. Procedures This patient has no known procedures. Encounters Start End Encounter Admission Attending Care Care Encounter Source Date/Time Date/Time Type Type Clinicians Facility Department ID 2020-07-28 2020-07-28 Telephone Pgy3 [facility] [id number] 00:00:00 00:00:00 HEALTH [id number] CLINICS [id number] 2020-07-27 2020-07-27 Routine SCOOTER Goncalves [id number] 09:46:46 10:15:31 Angela Mccarthy PAPER SALES REPRESENTATIVE [id number] Visit REGIONAL [id number] MATERNAL [id number] & CHILD [address] [place] [address] Results This patient has no known results.
[2020-07-31 11:07] LABS: Urine Blood 1+ (Negative); Urine Glucose Negative (Negative); Urine Protein 1+ (Negative); Urine Specific Gravity 1.025 (1.005-1.030)
[2020-07-31] MEDS ORDERED: NA CHLORIDE 0.9% 1,000 ML ONE (11:12)
[2020-07-31 11:18] LABS: Urine Specific Gravity/Preg 1.025 (1.005-1.030)
[2020-07-31 11:30] LABS: Absolute Lymphocytes (CBC) 1.6 K/uL (0.7-4.9); Basophils % 0.7 % (0-1.3); Hematocrit 38.3 % (36.0-45.0); Lymphocytes % 16.3 % (15.3-44.8); MPV 9.6 fL (7.6-11.3)
[2020-07-31] MEDS ORDERED: CEFTRIAXONE/SWI 1gm 1 GM/10 ML SYR ONE (11:40)
[2020-07-31 11:43] LABS: BUN Blood Urea Nitrogen 6 mg/dL (7-18); Bicarbonate 23 mmol/L (21-32); Glucose Level 78 mg/dL (74-106); HCG, Quantitative 21727 mIU/mL (1-3); Potassium 3.3 mmol/L (3.5-5.1); Sodium Level 140 mmol/L (136-145)
--- NOTE | 2020-07-31 12:11 | RAD REPORT ---
EXAM DESCRIPTION: US - Transvaginal OB - 07/31/2020 11:48 am CLINICAL HISTORY: ABD CRAMPING, COMPARISON: Transvaginal OB dated 03/04/2019 FINDINGS: A single gestational sac is seen within the uterus. The shape of the sac is within normal limits for gestational age. Within the sac is a single pole with crown-rump length of 7.8 cm, c orrelating to estimated gestational age of 13 weeks 4 days. Estimated date of delivery is 02/01/2021. Heart rate is 148 beats per minute. Anterior placenta is noted. Large cystic right adnexal mass associated with the right ovary is present measuring 20 x 10 cm. The right ovary shows normal blood flow. The left ovary is obscured by bowel gas. IMPRESSION: Single live early intrauterine gestation with estimated gestational age of 13 weeks 4 da ys, SYED 02/01/2021. Large multiloculated cystic right adnexal mass measuring 20 cm. This is suspicious for a right ovaria n cystadenoma or less likely cystadenocarcinoma.
--- NOTE | 2020-07-31 12:26 | EDPHYS ---
Physician Documentation [facility] Name: Thelma Modi Age: 24 yrs Sex: Female : 1995 Arrival Date: 07/31/2020 Time: 09:51 Bed 20 Private MD: FAISAL Physician Shahzad Hanks HPI: 07/31 11:15 This 24 yrs old Female presents to ER via Ambulatory with complaints of jorden Vaginal Bleeding, + Preg <12wks - 13 Wks. 11:15 The patient presents to the emergency department with vaginal bleeding, that is light. jorden The estimated gestational age is 13.5 weeks. course: care:. Previous pregnancies:. Associated signs and symptoms: The patient has no apparent associated signs or symptoms. The patient has not experienced similar symptoms in the past. 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 - Social history:: Smoking status: Patient denies any tobacco usage or history of. - Family history:: not pertinent. ROS: 11:15 Constitutional: Negative for fever, chills, and weight loss, Eyes: Negative for injury, jorden pain, redness, and discharge, ENT: Negative for injury, pain, and discharge, Neck: Negative for injury, pain, and swelling, Cardiovascular: Negative for chest pain, palpitations, and edema, Respiratory: Negative for shortness of breath, cough, wheezing, and pleuritic chest pain, Abdomen/GI: Negative for abdominal pain, nausea, vomiting, diarrhea, and constipation, Back: Negative for injury and pain, MS/Extremity: Negative for injury and deformity, Skin: Negative for injury, rash, and discoloration, Neuro: Negative for headache, weakness, numbness, tingling, and seizure, Psych: Negative for depression, anxiety, suicide ideation, homicidal ideation, and hallucinations, Allergy/Immunology: Negative for hives, rash, and allergies, Endocrine: Negative for neck swelling, polydipsia, polyuria, polyphagia, and marked weight changes, Hematologic/Lymphatic: Negative for swollen nodes, abnormal bleeding, and unusual bruising. 11:15 : Positive for vaginal bleeding. Exam: 11:15 Constitutional: This is a well developed, well nourished patient who is awake, alert, jorden and in no acute distress. Head/Face: Normocephalic, atraumatic. Eyes: Pupils equal round and reactive to light, extra-ocular motions intact. Lids and lashes normal. Conjunctiva and sclera are non-icteric and not injected. Cornea within normal limits. Periorbital areas with no swelling, redness, or edema. ENT: Nares patent. No nasal discharge, no septal abnormalities noted. Tympanic membranes are normal and external auditory canals are clear. Oropharynx with no redness, swelling, or masses, exudates, or evidence of obstruction, uvula midline. Mucous membranes moist. Neck: Trachea midline, no thyromegaly or masses palpated, and no cervical lymphadenopathy. Supple, full range of motion without nuchal rigidity, or vertebral point tenderness. No Meningismus. Chest/axilla: Normal chest wall appearance and motion. Nontender with no deformity. No lesions are appreciated. Cardiovascular: Regular rate and rhythm with a normal S1 and S2. No gallops, murmurs, or rubs. Normal PMI, no JVD. No pulse deficits. Respiratory: Lungs have equal breath sounds bilaterally, clear to auscultation and percussion. No rales, rhonchi or wheezes noted. No increased work of breathing, no retractions or nasal flaring. Abdomen/GI: Soft, non-tender, with normal bowel sounds. No distension or tympany. No guarding or rebound. No evidence of tenderness throughout. Back: No spinal tenderness. No costovertebral tenderness. Full range of motion. Skin: Warm, dry with normal turgor. Normal color with no rashes, no lesions, and no evidence of cellulitis. MS/ Extremity: Pulses equal, no cyanosis. Neurovascular intact. Full, normal range of motion. Neuro: Awake and alert, GCS 15, oriented to person, place, time, and situation. Cranial nerves II-XII grossly intact. Motor strength 5/5 in all extremities. Sensory grossly intact. Cerebellar exam normal. Normal gait. Psych: Awake, alert, with orientation to person, place and time. Behavior, mood, and affect are within normal limits. Vital Signs: 10:16 BP 133 / 85; Pulse 76; Resp 17; Temp 97.6(O); Pulse Ox 100% on R/A; Weight 134.26 kg; jl7 Height 5 ft. 6 in. (167.64 cm); Pain 3/10; 11:00 BP 107 / 96; Pulse 72; Resp 16; Pulse Ox 97% ; bp 12:00 BP 125 / 89; Pulse 69; Resp 17; Pulse Ox 100% ; bp 13:00 BP 130 / 98; Pulse 78; Resp 16; Pulse Ox 100% ; bp 10:16 Body Mass Index 47.77 (134.26 kg, 167.64 cm) jl7 MDM: 10:27 Patient medically screened. [facility] 11:15 Differential diagnosis: threatened Ab, inevitable Ab, complete Ab, retained Ab, missed jorden Ab. Data reviewed: vital signs, nurses notes, lab test result(s), radiologic studies, ultrasound. Data interpreted: laboratory monitor: rate is 76 beats/min, rhythm is regular, Pulse oximetry: on room air is 100 %. Counseling: I had a detailed discussion with the patient and/or guardian regarding: the historical points, exam findings, and any diagnostic results supporting the discharge/admit diagnosis, lab results, radiology results. 07/31 10:28 Order name: Quantitative Hcg; Complete Time: 12:19 jorden 07/31 10:28 Order name: Abo/rh Typing; Complete Time: 12:19 jorden 07/31 10:28 Order name: Basic Metabolic Panel; Complete Time: 12:19 jorden 07/31 10:28 Order name: CBC with Diff; Complete Time: 12:19 jorden 07/31 11:07 Order name: Urine Dipstick-Ancillary; Complete Time: 11:12 EDMS 07/31 11:07 Order name: Urine --Ancillary (enter results) eb 07/31 10:28 Order name: Urine Test (obtain specimen); Complete Time: 11:08 jorden 07/31 10:28 Order name: US Transvaginal Ob; Complete Time: 12:19 jorden 07/31 11:08 Order name: Urine --Ancillary; Complete Time: 12:19 [facility] 07/31 11:13 Order name: Urine Culture [facility] 07/31 10:28 Order name: IV Saline Lock; Complete Time: 11:08 [facility] 07/31 10:28 Order name: Labs collected and sent; Complete Time: 11: [facility] 07/31 10:28 Order name: NPO; Complete Time: 11: [facility] 07/31 10:28 Order name: Urine Dipstick-Ancillary (obtain specimen); Complete Time: 11:08 [facility] Administered Medications: 10:50 Drug: NS 0.9% 1000 ml Route: IV; Rate: 1 bolus; Site: right antecubital; bp 13:18 Follow up: IV Status: Completed infusion; IV Intake: 1000ml bp 11:20 Drug: Rocephin (cefTRIAXone) 1 grams Route: IV; Rate: per protocol; Site: right bp antecubital; 13:17 Follow up: IV Status: Completed infusion; IV Intake: 50ml bp 13:10 Drug: NS 0.9% with KCl 20 mEq/L 1000 ml Route: IV; Rate: 125 ml/hr; Site: right bp antecubital; 13:17 Follow up: IV Status: Infusion continued upon transfer bp 13:10 Drug: Potassium Effervescent Tablet 25 mEq Route: PO; bp 13:17 Follow up: Response: No adverse reaction bp Disposition: 07/31/20 12:25 Transfer ordered to [facility]. Diagnosis are Threatened , Other ovarian cysts - 20 cm cystadenoma, Hypokalemia. - Reason for transfer: Higher level of care. - [facility] - Condition is Stable. - Problem is new. - Symptoms have improved. Signatures: Dispatcher [employer] Shahzad Cha MD MD cha Leal, Jahala RN RN jl7 Mic Raya, ELO RN Carmen Parra Corrections: (The following items were deleted from the chart) 13:03 12:25 07/31/2020 12:25 Transfer ordered to [facility]. Diagnosis is Threatened jorden ; Other ovarian cysts - 20 cm cystadenoma. Reason for transfer: Higher level of care. [facility] Condition is Stable. Problem is new. Symptoms have improved. jorden 13:44 13:03 07/31/2020 12:25 Transfer ordered to [facility]. Diagnosis is Threatened eb ; Other ovarian cysts - 20 cm cystadenoma; Hypokalemia. Reason for transfer: Higher level of care. Accepting physician is to wardrobe technician, [facility]. Condition is Stable. Problem is new. Symptoms have improved. jorden
--- NOTE | 2020-07-31 12:26 | ER ---
Nurse's Notes [facility] Name: Thelma Modi Age: 24 yrs Sex: Female : 1995 Arrival Date: 07/31/2020 Time: 09:51 Bed 20 Private MD: Diagnosis: Threatened ;Other ovarian cysts-20 cm cystadenoma;Hypokalemia Presentation: 07/31 10:16 Chief complaint: Patient states: At 0300 passed what looked like some tissue, reports jl7 mild lower abdominal soreness and spotty, light pink vaginal bleeding. Coronavirus screen: Client denies travel out of the [place] in the last 14 days. At this time, the client does not indicate any symptoms associated with coronavirus-19. Ebola Screen: No symptoms or risks identified at this time. Initial Sepsis Screen: Does the patient meet any 2 criteria? No. Patient's initial sepsis screen is negative. Does the patient have a suspected source of infection? No. Patient's initial sepsis screen is negative. Risk Assessment: Do you want to hurt yourself or someone else? Patient reports no desire to harm self or others. Onset of symptoms was July 31, 2020 at 03:00. Care prior to arrival: None. 10:16 Method Of Arrival: Ambulatory jl7 10:16 Acuity: OC 3 jl7 Triage Assessment: 10:18 General: Appears in no apparent distress. uncomfortable, Behavior is calm, cooperative, jl7 appropriate for age. Pain: Complains of pain in right lower quadrant and left lower quadrant Pain currently is 3 out of 10 on a pain scale. : Reports vaginal bleeding that is spotty. 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 - Social history:: Smoking status: Patient denies any tobacco usage or history of. - Family history:: not pertinent. Screenin:21 Abuse screen: Denies threats or abuse. Denies injuries from another. Nutritional bp screening: No deficits noted. Tuberculosis screening: No symptoms or risk factors identified. Fall Risk None identified. Assessment: 10:30 General: SEE TRIAGE NOTE. bp 12:00 Obstetrical Assessment: General assessment: awake and alert, skin warm and dry, bp respirations even and unlabored, Rupture of membranes noted. Reassessment: No changes from previously documented assessment. Patient and/or family updated on plan of care and expected duration. Pain level reassessed. U/S COMPLETE, TRANSFER PENDING. 13:08 Reassessment: REPORT TO MILANA GASCA AT [facility] L\T\D. TRANSPORT PENDING. bp 13:33 Reassessment: [facility] AT B/S FOR TRANSPORT. bp Vital Signs: 10:16 BP 133 / 85; Pulse 76; Resp 17; Temp 97.6(O); Pulse Ox 100% on R/A; Weight 134.26 kg; jl7 Height 5 ft. 6 in. (167.64 cm); Pain 3/10; 11:00 BP 107 / 96; Pulse 72; Resp 16; Pulse Ox 97% ; bp 12:00 BP 125 / 89; Pulse 69; Resp 17; Pulse Ox 100% ; bp 13:00 BP 130 / 98; Pulse 78; Resp 16; Pulse Ox 100% ; bp 10:16 Body Mass Index 47.77 (134.26 kg, 167.64 cm) jl7 ED Course: 09:51 Patient arrived in ED. ds1 10:17 Triage completed. jl7 10:18 Arm band placed on right wrist. jl7 10:26 Shahzad Hanks MD is Attending Physician. jorden 10:45 Mic Raya, RN is Primary Nurse. bp 11:27 US Transvaginal Ob Sent. bp 11:48 US Transvaginal Ob In Process Unspecified. EDMS 12:00 Inserted saline lock: 20 gauge in right antecubital area, using aseptic technique. bp Blood collected. 12:[address] Hanks with Josué Yan from the [facility] Transfer Center. eb 12:32 connected the CULINARY ARTS INSTRUCTOR condenser winder for [facility] with Dr. Hanks for patient transfer eb consultation. 12:35 administrative approval given by Josué Yan/ patient has been accepted to [facility] eb Lety Paredes L\T\D Triage/ Dr. Marcella Macedo has accepted the patient in transfer/ report to be called to [phone]. 13:21 Patient has correct armband on for positive identification. Bed in low position. Call bp light in reach. Side rails up X2. 13:34 No provider procedures requiring assistance completed. Patient transferred, IV remains bp in place. Administered Medications: 10:50 Drug: NS 0.9% 1000 ml Route: IV; Rate: 1 bolus; Site: right antecubital; bp 13:18 Follow up: IV Status: Completed infusion; IV Intake: 1000ml bp 11:20 Drug: Rocephin (cefTRIAXone) 1 grams Route: IV; Rate: per protocol; Site: right bp antecubital; 13:17 Follow up: IV Status: Completed infusion; IV Intake: 50ml bp 13:10 Drug: NS 0.9% with KCl 20 mEq/L 1000 ml Route: IV; Rate: 125 ml/hr; Site: right bp antecubital; 13:17 Follow up: IV Status: Infusion continued upon transfer bp 13:10 Drug: Potassium Effervescent Tablet 25 mEq Route: PO; bp 13:17 Follow up: Response: No adverse reaction bp Intake: 13:17 IV: 50ml; Total: 50ml. bp 13:18 IV: 1000ml; Total: 1050ml. bp Outcome: 12:25 ER care complete, transfer ordered by MD. leonardo 13:33 Transferred by ground EMS to [facility]. bp 13:33 Condition: stable 13:33 Instructed on the need for transfer. 13:44 Patient left the ED. eb Signatures: Dispatcher [employer] EDShahzad Chow MD MD cha Sanford, Demi ds1 Christopher Gaitan RN RN jl7 Mic Raya RN RN bp Carmen Guillory
[2020-07-31] MEDS ORDERED: POTASSIUM 25 MEQ EFFERV TAB ONE (13:32)
[2020-07-31] MEDS ORDERED: NS KCL 20MEQ 1,000 ML IV ONE (13:32)
[2020-07-31 13:52] VITALS: TEMP 97.6
[2020-07-31 13:55] VITALS: O2SAT 100
[2020-07-31 13:56] VITALS: BP 130/98
== END 2020-07-31 13:44 | disposition short-term general hospital (02) ==
LOC: ER 09:48
DX: O20.0 Threatened abortion (principal); D27.0 Benign neoplasm of right ovary; O99.891 Other specified diseases and conditions complicating pregnancy; Z3A.13 13 weeks gestation of pregnancy; O99.281 Endocrine, nutritional and metabolic diseases complicating pregnancy, first trimester; E87.6 Hypokalemia
CPT/HCPCS: 87088; 85025; 87086; 80048; 36415; 86900; 81025; 86901; 84702; 81003; 76817; J0696; J7030; J3480; 96361; 96365; 96366; 99285

== ENCOUNTER 2023-01-01 16:38 | Emergency (ER) | payer OTHER, SELFPAY ==
--- OUTSIDE RECORDS SUMMARY | 2023-01-01 16:42 | XMS REPORT | Continuity of Care Document ---
:1995 Author Organization [facility] t Address [address] [place] [address] [address] [place] [address] Care Team Providers Name Role Phone Mercy Marmolejo Primary Care Physician [phone] NATHANIEL GALLO Attending Clinician Unavailable HODA HERNANDEZ Attending Clinician Unavailable DEBI BAKER Attending Clinician Unavailable Jeffery MORRISON Attending Clinician Unavailable Jeffery Baldwin Attending Clinician ERIKA SWAN Attending Clinician Unavailable Erika Swan MD Attending Clinician Anika Cardenas MA Attending Clinician Unavailable MERCY SOUSA Attending Clinician Unavailable Doctor Unassigned, [place] Attending Clinician Unavailable CATHY BURGER Attending Clinician Unavailable Pgy2 Attending Clinician Unavailable Cathy Burger MD Attending Clinician Nathaniel Gallo MD Attending Clinician Only, Adc Test Attending Clinician Unavailable Gumaro Baldwin MD Attending Clinician SOHAN DE LA CRUZ Attending Clinician Unavailable Sohan De La Cruz MD Attending Clinician Sally Almonte MD Attending Clinician SALLY ALMONTE Attending Clinician Unavailable Provider, [facility] Temp Attending Clinician Unavailable Leobardo SANCHEZ, Bel O Attending Clinician [phone] BEL QUIROZ Attending Clinician Unavailable Pgy3 Attending Clinician Unavailable Edgardo PICKARD, Chelsi Attending Clinician AMADOR ESTEBAN Attending Clinician Unavailable Rocco CLIENT SUPPORT COORDINATOR, Amador Sweeney Attending Clinician DORENE RICHARDSON Attending Clinician Unavailable Cole PICKARD, Dorene Walker Attending Clinician ELEAZAR GIBSON Attending Clinician Unavailable Shahzad Stoddard DO Attending Clinician Fer BLEVINSP, Angela Mccarthy Attending Clinician Jose PICKARD, Arturo Attending Clinician Belen PICKARD, Kenyatta Ceballos Attending Clinician [phone] Damian PICKARD, Koby Attending Clinician Sierra Trujillo MD Attending Clinician SIERRA TRUJILLO Attending Clinician Unavailable ANGELA MONROE Attending Clinician Unavailable [facility], [facility] Attending Clinician Unavailable Hellen PICKARD, Alison Coy Attending Clinician [phone] Adrianne Kulkarni MD Attending Clinician Adrian GASCA, Liliam Attending Clinician Unavailable Wil Liang MD Attending Clinician Ultrasound, Ang[facility] Attending Clinician Unavailable Leonel Mills MD, Liang Attending Clinician [phone] Mechelle Dean MD Attending Clinician MECHELLE DEAN Attending Clinician Unavailable MECHELLE DEAN Attending Clinician Unavailable [facility], [facility] Neurology Continuity Attending Clinician Unavail able Delmar PICKARD, Hoda Attending Clinician Ranger, [facility] Test Attending Clinician Unavailable Gumaro Ward MD Attending Clinician Jose Angel CELAYA, Malinda Attending Clinician Alison Crandall MD Attending Clinician [facility] Attending Clinician Unavailable Josafat Isaac DO Attending Clinician Akinsipe WHCNPMercy Attending Clinician [phone] Lab, [facility] Attending Clinician Unavailable NATHANIEL GALLO Admitting Clinician Unavailable HODA HERNANDEZ Admitting Clinician Unavailable ALISON GIRARD Admitting Clinician Unavailable Jeffery MORRISON Admitting Clinician Unavailable Sabino PICKARD, Nathaniel Echols Admitting Clinician DORENE RICHARDSON Admitting Clinician Unavailable Cole PICKARD, Dorene Walker Admitting Clinician Shahzad Stoddard DO Admitting Clinician Adrianne Kulkarni MD Admitting Clinician Alison Girard MD Admitting Clinician [phone] Payers Payer Name Policy Type Policy Number Effective Date Expiration Date [facility] [id number] 2018 [facility] MEDICAID 00:00:00 Problems Condition Condition Condition Status Onset Resolution Last Treating Co mments Source Name Details Category Date Date Treatment Clinician Date S/P left S/P left Disease Active Unive rs oophorecto oophorecto 3-10 it y of my my 00:00: [address] Disease Active 2020-03 U nivers anemia anemia 1-15 ity of 00:00: [address] Disease Active 2020-03 Univers (spontaneo (spontaneo 0-25 it y [place] vaginal [place] delivery[place] 00 [facility] Branch Morbid Morbid Disease Active Univers obesity obesity 8-26 ity of with body with body 00:00: [facility] s mass index mass index 00 Me dical of Branch 40.0-49.9 40.0-49.9 Adnexal Adnexal Disease Active Univers mass mass 5-04 ity of 00:00: [address] BMI BMI Disease Active Univers 50.0-59.9, 50.0-59.9, 3-09 it y of adult adult 00:00: [place] [address] Medical [place] False False Disease Active 2018-03 Overview: Univer s positive positive 05-12 Formattin ity of HIV HIV 00:00: g of this [place] serology serology 00 note Medica l might be Branch different from the original. Repeat labs in 4 weeks and 12 weeks Rubella Rubella Disease Active Overview: Univ ers non-immune non-immune 09-09 Formattin ity of status, status, 00:00: g of this [place] antepartum antepartum 00 note Me dical might be Branch different from the original. Address pp Compressio Compressio Disease Active U nivers n of brain n of brain 05-23 it y of 00:00: [place] [address] Medical [place] Headache Headache Disease Active Overview: Un erin 05-23 Formattin ity of 00:00: g of this [place] 00 note Medical might be Branch different from the original. ICD10 Diagnosis Term Construction Grip Utility Allergies, Adverse Reactions, Alerts Allergy Allergy Status Severity Reaction(s) Onset Inactive Treating Comm ents Source Name Type Date Date Clinician NO KNOWN Drug Active Univers ALLERGIE Class ity of S [facility] Social History Social Habit Start Date Stop Date Quantity Comments Source History of tobacco Current smoker Un iversity of use [facility] Sexual orientation Univer sity of [facility] ASSERTION [facility] Exposure to 2022-08-10 2022-08-20 Not sure [facility] SARS-CoV-2 (event) 00:00:00 22:04:00 [facility] History of Social 2021-06-02 2021-06-02 Univers ity of function 00:00:00 00:00:00 [facility] Tobacco use and 2021-03-14 2021-03-14 Smokeless Universit y of exposure 00:00:00 00:00:00 tobacco non-user [facility] dical Branch Alcohol intake 2020-07-27 2020-07-27 Current University of 00:00:00 00:00:00 non-drinker of [facility] alcohol Branch (finding) Sex Ass[birth year] At [birth year] Universit y of 00:00:00 00:00:00 [facility] Smoking Status Start Date Stop Date Source Never smoked tobacco [facility] Ex-smoker 2021-03-14 00:00:00 2021-03-14 00:00:00 [facility] Medications Ordered Filled Start Stop Current Ordering Indication Dosage Frequency Signature Comments Components Source Medication Medication Date Date Medication? Clinician (SIG) Name Name methylpredn 2022- No 125mg 125 mg, U nivers isolone sod 08-21 Slow IV ity of succ 06:30: 05:39 Push, [place] (SOLU-MEDRO 00 :00 ONCE, 1 Medic al L) dose, On Branch injection Mon 125 mg 08/21/22 at 0130, RADHA NaCl 0.9% 2022- No 1000mL at 999 Uni vers (NS) bolus 08-21 mL/hr, ity of infusion 06:00: 06:30 1,000 mL, [place] as 1,000 mL 00 :00 IV Medical Infusion, Branch ONCE, 1 dose, On [facility] 08/21/22 at 0100, STAT iopamidol 2022- No [id number] 100mL 100 mL, Univers (ISOVUE 08-21 Intravenou ity o f 370-500 mL) 05:15: 04:20 s, ONCE, 1 [place] injection 00 :00 dose, On Medica l 100 mL Mon [place] 08/21/22 at 0015, Routine ketorolac 2022- No 15mg 15 mg, Unive rs (TORADOL) 08-21 Slow IV ity of injection 04:30: 03:45 Push, [place] 15 mg 00 :00 ONCE, 1 Medical dose, On [facility] 08/20/22 at 2330, RADHA NaCl 0.9% 2022- No 1000mL at 999 Uni vers (NS) bolus 08-21 mL/hr, ity of infusion 04:30: 05:15 1,000 mL, Topher as 1,000 mL 00 :00 IV Medical Infusion, Branch ONCE, 1 dose, On [place] 08/20/22 at 2330, STAT cefTRIAXone 2022- No 1000mg 1,000 mg, Univers (ROCEPHIN) 08-21 IV ity of 1,000 mg in 03:30: 04:15 Piggyback, [place] NaCl 0.9% 00 :00 ONCE, 1 Medical (NS) 100 mL dose, On [facility] MINI-BAG [place] 08/20/22 at 2230, Administer over 30 Minutes, 100 mL
Reas on for Anti-Infec tive: Documented Infection< br>Documen belen Infection Site: HEENT<br&g t;Duration of Therapy: Other (see Comments) predniSONE Yes [id number] 1 PO BID x Univers 20 mg 08-21 4 days ity of tablet 00:00: [place] 00 Medical Branch amoxicillin 2022- No [id number] 500mg Take 1 Univers 500 mg 08-21 06-09 capsule by ity of capsule 00:00: 04:59 mouth in [place] 00 :00 the Medical morning Branch and 1 capsule at noon and 1 capsule in the evening. Do all this for 10 days. ketorolac 2022- No 30mg 30 mg, Unive rs (TORADOL) 07-27 Intramuscu ity of injection 11:00: 10:11 lar, ONCE, [place] 30 mg 00 :00 1 dose, On Medical [facility] 07/27/22 Branch at 0600, RADHA carbamide Yes [id number] 5[drp] Place 5 Univers peroxide - 92753 Drops in ity of 6.5 % otic 00:00: left ear [place] as solution 00 in the Medical morning Branch and 5 Drops in the evening. Until ear wax is removed carbamide Yes [id number] 5[drp] Place 5 Univers peroxide 07-27 30144 Drops in ity of 6.5 % otic 00:00: left ear [place] as solution 00 in the Medical morning Branch and 5 Drops in the evening. Until ear wax is removed amoxicillin 2022- No [id number] 1{tbl} Take 1 Univers -clavulanat 07-27- tablet by it y of e 875-125 00:00: 04:59 mouth [place] mg per 00 :00 every 12 Medical tablet (twelve) Branch hours for 7 days. traMADoL 50 2022- No [id number] 50mg Take 1 Uni vers mg tablet 07-27 tablet by ity of 00:00: 04:59 mouth [place] 00 :00 every 6 Medical (six) Branch hours as needed for Pain (scale 7-10) for up to 7 days. Indication s: acute pain ibuprofen 2022-0 Yes [id number] 600mg Take 1 Univers 600 mg 3-11 tablet by ity of tablet 00:00: mouth [place] 00 every 6 Medical (six) Branch hours as needed for Pain (scale 1-3). docusate 2022-0 Yes [id number] 100mg Take 1 U nivers 100 mg 3-11 capsule by ity of capsule 00:00: mouth [place] 00 daily. Medical Branch HYDROcodone 2021-0 Yes [id number] 1{tbl} Take 1 Un erin -acetaminop 3-11 tablet by ity of hen 5-325 00:00: mouth [place] mg tablet 00 every 6 Medical (six) Branch hours as needed for Pain (scale 7-10) for up to 7 doses. Indication s: acute pain ibuprofen 2021-0 Yes [id number] 600mg Take 1 Univers 600 mg 3-11 tablet by ity of tablet 00:00: mouth [place] 00 every 6 Medical (six) Branch hours as needed for Pain (scale 1-3). docusate 2-0 Yes [id number] 100mg Take 1 U nivers 100 mg 3-11 capsule by ity of capsule 00:00: mouth [place] 00 daily. Medical Branch HYDROcodone 2021-0 Yes [id number] 1{tbl} Take 1 Un erin -acetaminop 3-11 tablet by ity of hen 5-325 00:00: mouth [place] mg tablet 00 every 6 Medical (six) Branch hours as needed for Pain (scale 7-10) for up to 7 doses. Indication s: acute pain ibuprofen 2-0 Yes [id number] 600mg Take 1 Univers 600 mg 3-11 tablet by ity of tablet 00:00: mouth [place] 00 every 6 Medical (six) Branch hours as needed for Pain (scale 1-3). docusate 2022-0 Yes [id number] 100mg Take 1 U nivers 100 mg 3-11 capsule by ity of capsule 00:00: mouth [place] 00 daily. Medical Branch HYDROcodone 2-0 Yes [id number] 1{tbl} Take 1 Un erin -acetaminop 3-11 tablet by ity of hen 5-325 00:00: mouth [place] mg tablet 00 every 6 Medical (six) Branch hours as needed for Pain (scale 7-10) for up to 7 doses. Indication s: acute pain ibuprofen 2021-0 Yes [id number] 600mg Take 1 Univers 600 mg 3-11 tablet by ity of tablet 00:00: mouth [place] 00 every 6 Medical (six) Branch hours as needed for Pain (scale 1-3). docusate 2022-0 Yes [id number] 100mg Take 1 U nivers 100 mg 3-11 capsule by ity of capsule 00:00: mouth [place] 00 daily. Medical Branch HYDROcodone 2021-0 Yes [id number] 1{tbl} Take 1 Un erin -acetaminop 3-11 tablet by ity of hen 5-325 00:00: mouth [place] mg tablet 00 every 6 Medical (six) Branch hours as needed for Pain (scale 7-10) for up to 7 doses. Indication s: acute pain ibuprofen 2021-0 Yes [id number] 600mg Take 1 Univers 600 mg 3-11 tablet by ity of tablet 00:00: mouth [place] 00 every 6 Medical (six) Branch hours as needed for Pain (scale 1-3). docusate 2021-0 Yes [id number] 100mg Take 1 U nivers 100 mg 3-11 capsule by ity of capsule 00:00: mouth [place] 00 daily. Medical Branch HYDROcodone 2021-0 Yes [id number] 1{tbl} Take 1 Un erin -acetaminop 3-11 tablet by ity of hen 5-325 00:00: mouth [place] mg tablet 00 every 6 Medical (six) Branch hours as needed for Pain (scale 7-10) for up to 7 doses. Indication s: acute pain ibuprofen 2021-0 Yes [id number] 600mg Take 1 Univers 600 mg 3-11 tablet by ity of tablet 00:00: mouth [place] 00 every 6 Medical (six) Branch hours as needed for Pain (scale 1-3). docusate 2022-0 Yes [id number] 100mg Take 1 U nivers 100 mg 3-11 capsule by ity of capsule 00:00: mouth [place] 00 daily. Medical Branch HYDROcodone 2-0 Yes [id number] 1{tbl} Take 1 Un erin -acetaminop 3-11 tablet by ity of hen 5-325 00:00: mouth [place] mg tablet 00 every 6 Medical (six) Branch hours as needed for Pain (scale 7-10) for up to 7 doses. Indication s: acute pain ciprofloxac 2021- No [id number] 500mg Take 1 Univers in HCl 500 03-28 tablet by it y of mg tablet 00:00: 00:00 mouth [place] 00 :00 (two) Medical times Branch daily. neomycin-po 2021- No [id number] 3[drp] Place 3 Univers lymyxin-hyd 03-28 Drops in it y of rocortisone 00:00: 00:00 right ear [place] 3.5-10,000- 00 :00 4 (four) Medi rai 1 times Branch mg/mL-unit/ daily. mL-% otic susp norethindro 2020-03- No [id number] .35mg Take 1 Univers ne 0.35 mg 05-01 tablet by ity of tablet 00:00: 05:59 mouth [place] 00 :00 daily for Medical 30 days. Branch proMETHazin 2020- No [id number] 25mg Take 1 Univers e 25 mg 06-29-20 tablet by ity of tablet 00:00: 00:00 mouth [place] 00 :00 every 6 Medical (six) Branch hours as needed for Nausea and Vomiting (N/V). proMETHazin 2020- No [id number] 25mg Take 1 Univers e 25 mg 06-29-20 tablet by ity of tablet 00:00: 00:00 mouth [place] 00 :00 every 6 Medical (six) Branch hours as needed for Nausea and Vomiting (N/V). 2021- No [id number] 1{packe Take 1 Univers vit 3-06-03 t} Packet by ity of 33-iron-fol 00:00: 00:00 [place] ic-dha 00 :00 daily. Medical (SELECT-OB Branch + DHA) 29 mg iron-1 mg -250 mg combo pack 2021- No [id number] 1{packe Take 1 Univers vit 3-11 26- t} Packet by ity of 33-iron-fol 00:00: 00:00 [place] ic-dha 00 :00 daily. Medical (SELECT-OB Branch + DHA) 29 mg iron-1 mg -250 mg combo pack 2021- No [id number] 1{packe Take 1 Univers vit 3-06-03 t} Packet by ity of 33-iron-fol 00:00: 00:00 [place] ic-dha 00 :00 daily. Medical (SELECT-OB Branch + DHA) 29 mg iron-1 mg -250 mg combo pack 2021- No [id number] 1{packe Take 1 Univers vit 3-06-03 t} Packet by ity of 33-iron-fol 00:00: 00:00 [place] ic-dha 00 :00 daily. Medical (SELECT-OB Branch + DHA) 29 mg iron-1 mg -250 mg combo pack Immunizations Ordered Filled Date Status Comments Source Immunization Name Immunization Name [facility] 2021-01-16 Completed University of 00:00:00 [facility] Varicella 2021-01-16 Completed University of (varivax)(chicken 00:00:00 [facility] edical pox) Branch MMR 2021-01-16 Completed University of 00:00:00 [facility] Varicella 2021-01-16 Completed University of (varivax)(chicken 00:00:00 [facility] edical pox) Branch MMR 2021-01-16 Completed University of 00:00:00 [facility] Varicella 2021-01-16 Completed University of (varivax)(chicken 00:00:00 [place] M edical pox) Branch [facility] 2021-01-16 Completed University of 00:00:00 [facility] Varicella 2021-01-16 Completed University of (varivax)(chicken 00:00:00 [place] M edical pox) Branch MMR 2021-01-16 Completed University of 00:00:00 [facility] Varicella 2021-01-16 Completed University of (varivax)(chicken 00:00:00 [facility] edical pox) Branch MMR 2021-01-16 Completed University of 00:00:00 [facility] Varicella 2021-01-16 Completed University of (varivax)(chicken 00:00:00 [place] M edical pox) Branch SARS-COV-2 COVID-19 2020-12-22 [facility] [employer] VACCINE 00:00:00 [facility] SARS-COV-2 COVID-19 2020-12-22 Completed Unive rsity of PFIZER VACCINE 00:00:00 [facility] SARS-COV-2 COVID-19 2020-12-22 Completed Unive rsity of PFIZER VACCINE 00:00:00 [facility] SARS-COV-2 COVID-19 2020-12-22 Completed Unive rsity of PFIZER VACCINE 00:00:00 [facility] SARS-COV-2 COVID-19 2020-12-22 Completed Unive rsity of PFIZER VACCINE 00:00:00 [facility] SARS-COV-2 COVID-19 2020-12-22 Completed Unive rsity of PFIZER VACCINE 00:00:00 [facility] SARS-COV-2 COVID-19 2020-12-01 Completed Unive rsity of PFIZER VACCINE 00:00:00 [facility] SARS-COV-2 COVID-19 2020-12-01 Completed Unive rsity of PFIZER VACCINE 00:00:00 [facility] SARS-COV-2 COVID-19 2020-12-01 Completed Unive rsity of PFIZER VACCINE 00:00:00 [facility] SARS-COV-2 COVID-19 2020-12-01 Completed Unive rsity of PFIZER VACCINE 00:00:00 [facility] SARS-COV-2 COVID-19 2020-12-01 Completed Unive rsity of PFIZER VACCINE 00:00:00 [facility] SARS-COV-2 COVID-19 2020-12-01 Completed Unive rsity of PFIZER VACCINE 00:00:00 [facility] TDAP 2020-11-15 Completed University of 00:00:00 [facility] TDAP 2020-11-15 Completed University of 00:00:00 [facility] TDAP 2020-11-15 Completed University of 00:00:00 [facility] TDAP 2020-11-15 Completed University of 00:00:00 [facility] TDAP 2020-11-15 Completed University of 00:00:00 [facility] TDAP 2020-11-15 Completed University of 00:00:00 [facility] Influenza Virus 2020-06-01 Completed Universit y of Vaccine [place] .5 mL 00:00:00 [place] Medical IM 6+ MO Branch Influenza Virus 2020-06-01 Completed Universit y of Vaccine [place] .5 mL 00:00:00 [place] Medical IM 6+ MO Branch Influenza Virus 2020-06-01 Completed Universit y of Vaccine [place] .5 mL 00:00:00 [place] Medical IM 6+ MO Branch Influenza Virus 2020-06-01 Completed Universit y of Vaccine [place] .5 mL 00:00:00 [place] Medical IM 6+ MO Branch Influenza Virus 2020-06-01 Completed Universit y of Vaccine [place] .5 mL 00:00:00 [place] Medical IM 6+ MO Branch Influenza Virus 2020-06-01 Completed Universit y of Vaccine [place] .5 mL 00:00:00 [place] Medical IM 6+ MO Branch Influenza Virus 2019-02-27 Completed Universit y of Vaccine [place] .5 mL 00:00:00 [place] [facility] 6+ MO Branch Influenza Virus 2019-02-27 Completed Universit y of Vaccine [place] .5 mL 00:00:00 [facility] 6+ MO Branch Influenza Virus 2019-02-27 Completed Universit y of Vaccine [place] .5 mL 00:00:00 [place] Medical IM 6+ MO Branch Influenza Virus 2019-02-27 Completed Universit y of Vaccine [place] .5 mL 00:00:00 [place] [facility] 6+ MO Branch Influenza Virus 2019-02-27 Completed Universit y of Vaccine [place] .5 mL 00:00:00 [facility] 6+ MO Branch Influenza Virus 2019-02-27 Completed Universit y of Vaccine [place] .5 mL 00:00:00 [facility] 6+ MO Branch Influenza Virus Unknown Completed Universit y of Vaccine [place] .5 mL [facility] 6+ MO Branch (FLUZONE/FLULAVAL/F LUARIX) Influenza Virus Unknown Completed Universit y of Vaccine [place] .5 mL [facility] 6+ MO Branch (FLUZONE/FLULAVAL/F LUARIX) TDAP Unknown Completed [facility] SARS-COV-2 COVID-19 Unknown Completed Unive rsity of PFIZER VACCINE [facility] SARS-COV-2 COVID-19 Unknown Completed Unive rsity of PFIZER VACCINE [facility] MMR Unknown Completed [facility] Varicella Unknown Completed University (varivax)(chicken [place] M edical pox) Branch Influenza Virus Unknown Completed Universit y of Vaccine [place] .5 mL [facility] 6+ MO Branch (FLUZONE/FLULAVAL/F LUARIX) Influenza Virus Unknown Completed Universit y of Vaccine [place] .5 mL [place] [facility] IM 6+ MO Branch (FLUZONE/FLULAVAL/F LUARIX) TDAP Unknown Completed [facility] SARS-COV-2 COVID-19 Unknown Completed Unive rsity of PFIZER VACCINE [facility] SARS-COV-2 COVID-19 Unknown Completed Unive rsity of PFIZER VACCINE [facility] MMR Unknown Completed [facility] Varicella Unknown Completed University (varivax)(chicken [place] M edical pox) Branch Influenza Virus Unknown Completed Universit y of Vaccine [place] .5 mL [facility] IM 6+ MO Branch (FLUZONE/FLULAVAL/F LUARIX) Influenza Virus Unknown Completed Universit y of Vaccine [place] .5 mL [facility] IM 6+ MO Branch (FLUZONE/FLULAVAL/F LUARIX) Influenza Virus Unknown Completed Universit y of Vaccine [place] .5 mL [facility] IM 6+ MO Branch (FLUZONE/FLULAVAL/F LUARIX) Influenza Virus Unknown Completed Universit y of Vaccine [place] .5 mL [place] [facility] IM 6+ MO Branch (FLUZONE/FLULAVAL/F LUARIX) Vital Signs Vital Name Observation Time Observation Value Comments Source Systolic blood 2022-08-21 06:30:00 115 mm[Hg] [facility] sit of pressure [facility] Diastolic blood 2022-08-21 06:30:00 85 mm[Hg] [facility] Heart rate 2022-08-21 06:30:00 96 /min [facility] Respiratory rate 2022-08-21 06:30:00 21 /min [facility] Oxygen saturation in 2022-08-21 06:30:00 94 /min [facility] Arterial blood by [facility] Pulse oximetry [place] Body temperature 2022-08-21 03:04:00 38.28 Kanchan [facility] Body height 2022-08-21 03:04:00 167.6 cm [facility] Body weight 2022-08-21 03:04:00 134.401 kg [facility] BMI 2022-08-21 03:04:00 47.82 kg/m2 [facility] Systolic blood 2022-07-27 09:07:00 141 mm[Hg] Univer sity of pressure [facility] Diastolic blood 2022-07-27 09:07:00 88 mm[Hg] Unive rsity of pressure [facility] Heart rate 2022-07-27 09:07:00 96 /min Universi ty of [facility] Body temperature 2022-07-27 09:07:00 36.61 Kanchan Univ ersity of [facility] Respiratory rate 2022-07-27 09:07:00 16 /min Univ ersity of [facility] Body height 2022-07-27 09:07:00 167.6 cm Universi ty of [facility] Body weight 2022-07-27 09:07:00 127.461 kg Universi ty of [facility] BMI 2022-07-27 09:07:00 45.35 kg/m2 Universi ty of [facility] Oxygen saturation in 2022-07-27 09:07:00 98 /min University Arterial blood by [facility] Pulse oximetry Branch Systolic blood 2021-06-16 19:17:00 135 mm[Hg] Univer sity of [facility] Diastolic blood 2021-06-16 19:17:00 76 mm[Hg] Unive rsity of pressure [facility] Heart rate 2021-06-16 19:17:00 99 /min Universi ty of [facility] Body temperature 2021-06-16 19:17:00 36.5 Kanchan Univ ersity of [facility] Respiratory rate 2021-06-16 19:17:00 19 /min Univ ersity of [facility] Body height 2021-06-16 19:17:00 167.6 cm Universi ty of [facility] Body weight 2021-06-16 19:17:00 127.551 kg Universi ty of [facility] BMI 2021-06-16 19:17:00 45.39 kg/m2 Universi ty of [facility] Procedures Procedure Date / Time Performing Clinician Source Performed CT SOFT TISSUE NECK W 2022-08-21 04:26:00 Jeffery Morrison [facility] COMP. METABOLIC PANEL 2022-08-21 03:38:00 Jeffery Morrison [place] [facility] ([id number]) Medical [place] CBC WITH DIFF 2022-08-21 03:38:00 Jeffery Morrison Etoile o f [facility] RAPID STREP SCREEN FOR 2022-08-21 03:38:00 Jeffery Morrison [facility] POCT TEST 2022-08-21 03:35:00 Jeffery Morrison [facility] CONSENT/REFUSAL FOR 2022-08-21 02:49:37 Doctor Unassigned, No [facility] [place] DIAGNOSIS AND TREATMENT Name [facility] NOTICE OF PRIVACY 2022-07-27 09:03:11 Doctor Unassigned, No Univ [facility] PRACTICES Name [facility] CONSENT/REFUSAL FOR 2022-07-27 09:02:34 Doctor [facility]igned, [facility] Name [facility] VACCINATIONS - 2021-11-04 05:01:00 Doctor Unassigned, No [facility] CONSENTS, ELIGIBILITY, Name Medical [facility] HISTORY Encounters Start End Encounter Admission Attending Care Care Encounter Source Date/Time Date/Time Type Type Clinicians Facility Department ID 2021-03-04 Outpatient R SABINO [facility] ZONING ENGINEER [id number] Univers 09:57:00 [facility]-24 Outpatient SABINO [facility] ZONING ENGINEER [id number] Univers 16:32:48 ARMSTRONG ity [facility] 2021-01-24 Emergency [facility] [id number] Univers 18:19[facility]-01-23 Inpatient HERNANDEZ, [facility] ZONING ENGINEER [id number] Univers 20:05:14 HODA ity [facility] 2021-01-23 Emergency [facility] [id number] Univers 18:40:15 ity [facility] 2021-01-23 Outpatient P [facility] ISREAL [id number] Univers 17:56:54 ity of [facility] 2021-01-23 Inpatient P [facility] ISREAL [id number] Univers 17:56:29 ity of [facility] 2021-01-23 Outpatient P [facility] ISREAL [id number] Univers 17:56:27 ity [facility] 2022-08-20 2022-08-21 Emergency X Jeffery MORRISON [facility] ERT [id number] Univers 22:07:00 01:56:00 ity of [facility] 2022-08-20 2022-08-21 Emergency Jeffery Morrison [facility] 1.2.840.114 [id number] Univers 22:07:00 01:56:00 Kiki JEFF 350.1.13.10 i ty [place] [id number] [address] 2022-07-27 2022-07-27 Emergency X [facility] ERT [id number] Univers 04:11:00 06:19:00 , ERIKA ity of [facility] 2022-07-27 2022-07-27 [facility] 1.2.840.114 [id number] Univers 04:11:00 06:19:00 , Erika LOMENDY 350.1.13.10 i ty [place] [id number] [address] 2022-07-25 2022-07-25 Case Eduinwilli HEMANTPatel 1.2.840.114 [id number] Univers 00:00:00 00:00:00 Management Anika ESTRELLA 350.1.13.10 [place] [id number] [address] 2022-03-16 2022-03-16 Outpatient R MERRY [facility] [id number] Univers 14:00:00 14:00:00 MERCY singleton f [facility] 2021-11-04 2021-11-04 Orders Doctor JUAN DIEGO 1.2.840.114 [id number] Univers 00:00:00 00:00:00 Only Unassigned, AMADA 350.1.13.10 ity of [place] [facility] 4.2.7.2.686 [place] [id number] [address] 2021-06-16 2021-06-16 Outpatient Fabio BURGER [facility] [id number] Univers 14:15:00 16:03:21 CATHY ity of [facility] 2021-06-16 2021-06-16 Office Pgy2 UNIVERSIT 1.2.057.859 [id number] Univers 14:15:00 16:03:21 Visit Cathy Burger 350.1.13.10 ity of [facility] [place] [id number] [facility] [address] 2021-06-06 2021-06-06 Patient Doctor JUAN DIEGO 1.2.840.114 [id number] Univers 00:00:00 00:00:00 Secure Msg Unassigned, AMADA 350.1.13.10 ity of [facility] 4.2.7.2.686 [place] [id number] [facility] [address] 2021-06-02 2021-06-03 Outpatient R SABINO [facility] ZONING ENGINEER [id number] Univers 09:47:00 13:27:00 ARMSTRONG ity [facility] 2021-06-02 2021-06-03 Hospital MARTIN Gallo 1.2.840.114 [id number] Univers 09:47:00 13:27:00 Encounter [facility] RICHARDSY 350.1.13.10 ity of [facility] 4.2.7.2.686 [place] [id number] [facility] [address] 2021-06-02 2021-06-02 Surgery MARTIN Gallo 1.2.840.114 [id number] Univers 12:04:00 15:01:00 Armstrong AMADA 350.1.13.10 it y of [facility] 4.2.7.2.686 [place] [phone] [facility] [address] 2021-06-01 2021-06-01 Laboratory Only, Adc Test [facility] 1.2.840. 114 [id number] Univers 11:30:00 11:45:00 Only Nathaniel Gallo [facility] 350.1.13 .10 ity [facility] [place] [phone] [facility] [address] 2021-06-01 2021-06-01 Outpatient R SABINO [facility] [id number] Univers 11:30:00 11:30:00 ARMSTRONG ity [facility] 2021-06-01 2021-06-01 Orders Doctor JUAN DIEGO 1.2.840.114 [id number] Univers 00:00:00 00:00:00 Only Unassigned, AMADA 350.1.13.10 ity of [place] [facility] 4.2.7.2.686 [place] as [phone] [facility] [address] 2021-05-04 2021-05-04 Prep For [facility], UNIVERSIT 1.2.840.114 [id number] Univers 00:00:00 00:00:00 Surgery [facility] 350.1.13.10 ity of CL[place] [id number] [facility] [address] 2021-04-29 2021-04-29 Patient Gallo [facility] 1.2.840.114 [id number] Univers 00:00:00 00:00:00 Secure [facility] 350.1.13.10 ity of [facility] SPECIALTY 4.2.7.2.686 Te [facility] [phone] [facility] [address] 2021-03-28 2021-03-28 Emergency [facility] [id number] Univers 08:41:00 09:59:00 SOHAN ity [facility] 2021-03-28 2021-03-28 Emergency [facility] 1.2.771.147 [id number] Univers 08:41:00 09:59:00 Sohan AGUILAR 350.1.13.10 i ty of [place] [id number] [facility] [address] 2021-03-28 2021-03-28 Orders Doctor JUAN DIEGO 1.2.840.114 [id number] Univers 00:00:00 00:00:00 Only Unassigned, AMADA 350.1.13.10 ity of [place] [facility] 4.2.7.2.686 [place] as [id number] [facility] [address] 2021-03-21 2021-03-21 Laboratory Only, Adc Test [facility] 1.2.840. 114 [id number] Univers 13:45:00 14:00:00 Only Sally Amlonte 350.1.13.10 ity of [place] [id number] [facility] [address] 2021-03-21 2021-03-21 Outpatient Fabio ALMONTE [facility] [id number] Univers 13:45:00 13:45:00 SALLY ity of [facility] 2021-03-21 2021-03-21 Telephone SRI Gallo 1.2.840.114 [id number] Univers 00:00:00 00:00:00 [facility] 350.1.13.10 i ty of [facility] [place]2.[place].2.[place] [id number] [facility] [address] 2021-03-21 2021-03-21 Patient Doctor JUAN DIEGO 1.2.840.114 [id number] Univers 00:00:00 00:00:00 Secure Msg Unassigned, AMADA 350.1.13.10 ity of [facility] 4.2.7.2.686 [place] [phone] [facility] [address] 2021-02-28 2021-02-28 Office Provider, LissethRmchanupam [facility] 1 .2.840.114 [id number] Univers 12:45:00 13:55:55 Visit Bel Quiroz FRANCHISE MANAGER 350.1.13. 10 ity [facility] 4.2.7.2.686 [place] MATERNAL [phone] Med ical & CHILD [address] [place] [address] 2021-02-28 2021-02-28 Outpatient Fabio QUIROZ [facility] [id number] Univers 12:45:00 13:55:55 BEL singleton [facility] 2021-02-28 2021-02-28 Outpatient Fabio QUIROZ [facility] [id number] Univers 12:45:00 12:45:00 BEL chávez [facility] 2021-02-28 2021-02-28 Outpatient Fabio QUIROZ [facility] [id number] Univers 12:45:00 12:45:00 BEL chávez [facility] 2021-02-24 2021-02-24 Outpatient Fabio GALLO [facility] [id number] Univers 15:00:00 16:15:16 [facility] 2021-02-24 2021-02-24 Outpatient R SABINO [facility] [id number] Univers 15:00:00 16:15:16 [facility] 2021-02-24 2021-02-24 Office Pgy3 UNIVERSIT 1.2.278.678 [id number] Univers 14:58:53 16:15:16 Visit Nathaniel Gallo [facility] 350.1.13 .10 ity of [place] [id number] [address] 2021-02-24 2021-02-24 Outpatient R SABINO [facility] [id number] Univers 15:00:00 15:00:00 [facility] 2021-02-24 2021-02-24 Prep For HUNG Reynoso 1.2.840.114 [id number] Univers 00:00:00 00:00:00 Surgery [facility] 350.1.13.10 i ty [place] [id number] [address] 2021-02-07 2021-02-07 Outpatient Fabio ESTEBAN [facility] [id number] Univers 12:45:00 13:23:59 AMADOR [facility] 2021-02-07 2021-02-07 Routine [facility] 1.2.458.253 [id number] Univers 12:45:41 13:00:41 Amador Sweeney FRANCHISE MANAGER 350.1.13.10 i ty of Visit REGIONAL 4.2.7.2.686 [place] MATERNAL [phone] Med ical & CHILD [address] [place] [address] 2021-01-24 2021-01-25 Outpatient P DORENE RICHARDSON [facility] ISREAL [id number] Univers 23:55:00 [facility]:33[facility] 2021-01-24 2021-01-25 [facility] Jeffery Morrison [facility] 1.2.840.1 14 [id number] Univers 23:55:00 00:33:00 Encounter Dorene Richardson [place] 350.1.13.10 ity [facility] [place].2.7.2.[place] [facility] [phone] [facility] [address] 2021-01-18 2021-01-18 Outpatient R ARTHUR [facility] [id number] Univers 14:00:00 14:00:00 ELEAZAR carroll o f [facility] 2021-01-13 2021-01-16 [facility] JUAN DIEGO Stoddard 1.2.840.114 [id number] Univers 18:35:00 19:41:00 Encounter Shahzad YBARRA 350.1.13.10 ity of [facility] 4.2.7.2.686 [place] [phone] [facility] [address] 2021-01-13 2021-01-16 Inpatient P CHANI [facility] ISREAL [id number] Univers 18:35:00 19:41:00 SHAHZAD ity [facility] 2021-01-15 2021-01-15 Telephone [facility] 1.2.067.310 [id number] Univers 00:00:00 00:00:00 Angela Mccarthy FRANCHISE MANAGER 350.1.13.10 ity [facility] 4.2.7.2.686 [place] MATERNAL [phone] Med ical & CHILD [address] [place] [address] 2021-01-14 2021-01-14 Anesthesia Arturo Garcia 1.2.840.114 [id number] Univers 08:17:00 21:12:00 Event Kenyatta Glover 350.1.1 3.10 ity [facility] 4.2.7.2.686 [place] [phone] [facility] [address] 2021-01-13 2021-01-13 Anesthesia JUAN DIEGO Salgado 1.2.840.114 [id number] Univers 20:00:57 20:00:57 Event Koby YBARRA 350.1.13.10 it y of [facility] 4.2.7.2.686 [place] [phone] [facility] [address] 2021-01-13 2021-01-13 Routine Provider, Geo [facility] 1 .2.840.114 [id number] Univers 14:26:59 15:42:05 Bel Quiroz FRANCHISE MANAGER 350.1.13 .10 ity of Visit REGIONAL 4.2.7.2.686 [place] MATERNAL [phone] [facility] & [address] 2021-01-13 2021-01-13 Outpatient R [facility] [id number] Univers 14:30:00 14:30:00 ity of [facility] 2021-01-06 2021-01-06 Routine Provider, Geo [facility] 1 .2.840.114 [id number] Univers 13:58:10 14:46:46 Bel Quiroz FRANCHISE MANAGER 350.1.13 .10 ity of Visit REGIONAL 4.2.7.2.686 [place] MATERNAL [phone] [facility] & [address] 2021-01-06 2021-01-06 Outpatient R [facility] [id number] Univers 14:15:00 14:15:00 ity of [facility] 2021-01-06 2021-01-06 Orders Doctor JUAN DIEGO 1.2.840.114 [id number] Univers 00:00:00 00:00:00 Only Unassigned, AMADA 350.1.13.10 ity of [place] [facility] 4.2.7.2.686 [place] [phone] [place] [address] [address] 2021-01-03 2021-01-03 Office Sierra Trujillo [facility] 1.2.840.114 [id number] Univers 12:51:33 13:21:33 Visit S Health 350.1.13.10 it y [place] [phone] [facility] [address] Office Building 2021-01-03 2021-01-03 Outpatient R SIERRA TRUJILLO [facility] [id number] Univers 13:00:00 13:00:00 ity [facility] 2021-01-03 2021-01-03 Telephone Leobardo [facility] 1.2.840.114 [id number] Univers 00:00:00 00:00:00 Bel Singleton FRANCHISE MANAGER 350.1.13.10 ity of REGIONAL 4.2.7.2.686 [place] MATERNAL [phone] [facility] & CHILD [address] [place] [address] 2020-12-30 2020-12-30 Routine Provider, Geo [facility] 1 .2.840.114 [id number] Univers 12:45:06 13:26:45 Bel Quiroz O FRANCHISE MANAGER 350.1.13 .10 ity of Visit REGIONAL 4.2.7.2.686 [place] MATERNAL [phone] [facility] & CHILD [address] [place] [address] 2020-12-30 2020-12-30 Outpatient R [facility] [id number] Univers 12:45:00 12:45:00 ity [facility] 2020-12-21 2020-12-21 [facility] [id number] Univers 13:15:00 13:15:00 ROSHUNDA ity o [facility] 2020-12-20 2020-12-20 Outpatient R FER [facility] [id number] Univers 13:15:00 13:15:00 ROSHUNDA ity o f [facility] 2020-12-15 2020-12-15 Outpatient [facility] [id number] Univers 12:45:00 12:45:00 ROSHUNDA ity o [facility] 2020-12-13 2020-12-13 Outpatient R [facility] [id number] Univers 13:00:00 13:00:00 ity [facility] 2020-12-13 2020-12-13 Telemedici Faculty, Rodriguez [facility] 1.2.840.114 [id number] Univers 09:12:45 09:27:45 ne Visit Adrian Girardwilfredo Coy FRANCHISE MANAGER 350.1 .13.10 ity of REGIONAL 4.2.7.2.686 [place] MATERNAL [phone] [facility] & CHILD [address] [place] [address] 2020-11-30 2020-11-30 Routine Fer [facility] 1.2.840.114 [id number] Univers 13:50:48 14:05:48 Roshunda R FRANCHISE MANAGER 350.1.13.10 ity of Visit [facility] 4.2.7.2.686 [place] as MATERNAL [id number] [facility] & CHILD [address] [place] [address] 2020-11-30 2020-11-30 Routine [facility] 1.2.840.114 [id number] Univers 13:50:48 14:05:48 Roshunda R FRANCHISE MANAGER 350.1.13.10 ity of Visit [facility] 4.2.7.2.686 [place] as MATERNAL [phone] [facility] & CHILD [address] [place] [address] 2020-11-30 2020-11-30 Outpatient [facility] [id number] Univers 13:45:00 13:45:00 ROSHUNDA ity o f [facility] 2020-11-22 2020-11-22 Telephone [facility] 1.2.514.389 [id number] Univers 00:00:00 00:00:00 Roshunda R FRANCHISE MANAGER 350.1.13.10 ity of [facility] 4.2.7.2.686 [place] as MATERNAL [phone] [address] 2020-11-22 2020-11-22 Telephone [facility] 1.2.478.800 [id number] Univers 00:00:00 00:00:00 Roshunda R FRANCHISE MANAGER 350.1.13.10 ity of [facility] 4.2.7.2.686 [place] as MATERNAL [phone] [facility] & CHILD [address] [place] [address] 2020-11-18 2020-11-18 [facility] 1.2.840.114 [id number] Univers 12:35:00 16:55:00 Encounter Adrianne Aguilar 350.1.13.10 ity of [place].2.[place] [phone] [address] 2020-11-18 2020-11-18 [facility] 1.2.840.114 [id number] Univers 12:35:00 16:55:00 Encounter Adrianne Aguilra 350.1.13.10 ity of [place].2.[place] [facility] [phone] [facility] [address] [place] 2020-11-18 2020-11-18 Nurse JUAN DIEGO Campbell 1.2.840.114 [id number] Univers 00:00:00 00:00:00 Triage Aneatrice AMADA 350.1.13.10 ity of HOSPITAL 4.2.7.2.686 [place] [phone] [facility] [address] [place] 2020-11-18 2020-11-18 Orders Doctor JUAN DIEGO 1.2.840.114 [id number] Univers 00:00:00 00:00:00 Only Unassigned, AMADA 350.1.13.10 ity of [place] [facility] 4.2.7.2.686 [place] as [phone] [facility] [address] [place] 2020-11-18 2020-11-18 JUAN DIEGO Adams 1.2.840.114 [id number] Univers 00:00:00 00:00:00 Triage Aneatrice AMADA 350.1.13.10 ity of HOSPITAL 4.2.7.2.686 [place] [id number] [facility] [address] [place] 2020-11-18 2020-11-18 Orders Doctor JUAN DIEGO 1.2.840.114 [id number] Univers 00:00:00 00:00:00 Only Unassigned, AMADA 350.1.13.10 ity of [place] [facility]OS[facility]ITAL 4.2.7.2.686 [place] as [phone] [facility] [address] [place] 2020-11-15 2020-11-15 Routine Fer [facility] 1.2.840.114 [id number] Univers 13:12:19 14:22:19 Angela R FRANCHISE MANAGER 350.1.13.10 ity of Visit REGIONAL 4.2.7.2.686 [place] MATERNAL [id number] [facility] ical & CHILD [address] [place] [address] 2020-11-15 2020-11-15 Outpatient Fabio [facility]ROE [facility] [id number] Univers 13:15:00 13:15:00 ANGELA cuiy o f [facility] 2020-11-09 2020-11-09 Outpatient Fabio MONROE [facility] [id number] Univers 07:30:00 07:30:00 GININDA ity o f [facility] 2020-11-01 2020-11-01 Routine Artemio, Rodriguez Mckay [facility] 1.2 .840.114 [id number] Univers 09:02:36 10:59:17 Wil Liang Dieter FRANCHISE MANAGER 350.1.13. 10 ity of Visit REGIONAL 4.2.7.2.686 [place] MATERNAL [phone] [facility] ical & CHILD [address] [place] [address] 2020-11-01 2020-11-01 Outpatient R [facility] [id number] Univers 09:00:00 09:00:00 ity of [facility] 2020-10-25 2020-10-25 Jordan Monroe [facility] 1.2.840.114 [id number] Univers 07:38:43 08:41:17 Belena R FRANCHISE MANAGER 350.1.13.10 ity of Visit REGIONAL 4.2.7.2.686 [place] as MATERNAL [phone] [facility] & CHILD [address] [place] [address] 2020-10-25 2020-10-25 Outpatient [facility] [id number] Univers 07:45:00 07:45:00 GININDA ity o f [facility] 2020-10-20 2020-10-20 [facility] [place] UNIVERSIT 1.2.840.114 [id number] Univers 14:33:32 23:59:00 Encounter S Y HEALTH 350.1.13.10 ity of [place] [id number] [address] 2020-10-20 2020-10-20 [facility] [place] UNIVERSIT 1.2.840.114 [id number] Univers 14:33:16 23:59:00 Encounter S Y HEALTH 350.1.13.10 ity of CL[place]ICS [place]2.[place] [id number] [address] 2020-10-20 2020-10-20 [facility] [place] UNIVERSIT 1.2.840.114 [id number] Univers 14:30:00 14:32:00 Encounter S Y HEALTH 350.1.13.10 ity of CL[place]ICS 4[place].2.[place] [id number] [facility] [address] [place] 2020-10-20 2020-10-20 Outpatient R SIERRA TRUJILLO [facility] [id number] Univers 00:00:00 00:00:00 ity of [facility] 2020-10-11 2020-10-11 Web Producer Ultrasound, [facility] 1.2 .840.114 [id number] Univers 13:12:56 14:12:56 Visit Azul Karimi FRANCHISE MANAGER 350.1. 13.10 ity of REGIONAL 4.2.7.2.686 [place] MATERNAL [phone] [facility] ical & CHILD [address] [facility] [place] [place] 2020-10-11 2020-10-11 Outpatient P [facility] [id number] Univers 13:30:00 13:30:00 ity of [facility] 2020-10-11 2020-10-11 Abstract Fer [facility] 1.2.840.114 [id number] Univers 00:00:00 00:00:00 Rosgenaronda R FRANCHISE MANAGER 350.1.13.10 ity of REGIONAL 4.2.7.2.686 [place] MATERNAL [id number] [facility] & [facility] [address] [facility] [place] [place] 2020-09-29 2020-09-29 Telephone [place] UNIVERSIT 1.2.840.11 [id number] Univers 00:00:00 00:00:00 S Y HEALTH 350.1.13.10 i ty of CLINICS 4[place]2.7.2.[place] [id number] [facility] [address] [place] 2020-09-27 2020-09-27 Outpatient Fabio MONROE [facility] [id number] Univers 15:45:00 15:45:00 ROSHUNDA ity o f [facility] 2020-09-27 2020-09-27 Routine Fer TNBREANNE 1.2.840.114 [id number] Univers 07:30:52 08:04:26 Roshunda R FRANCHISE MANAGER 350.1.13.10 ity of Visit REGIONAL 4.2.7.2.686 [place] MATERNAL [id number] [facility] & CHILD [address] [place] [address] 2020-09-27 2020-09-27 Outpatient R FER [facility] [id number] Univers 07:30:00 07:30:00 GININDA ity o f [facility] 2020-09-22 2020-09-22 Outpatient R FER [facility] [id number] Univers 08:00:00 08:00:00 ROSGENARONDA ity o f [facility] 2020-09-21 2020-09-21 Outpatient R FER [facility] [id number] Univers 09:30:00 09:30:00 ROSGENARONDA seey o [facility] 2020-09-15 2020-09-15 Abstract Fer [facility] 1.2.840.114 [id number] Univers 00:00:00 00:00:00 Angela Mccarthy FRANCHISE MANAGER 350.1.13.10 ity of REGIONAL 4.2.7.2.686 [place] as MATERNAL [phone] [facility] & CHILD [address] [place] [address] 2020-09-14 2020-09-14 Web Producer Ultrasound, [facility] 1.2 .840.114 [id number] Univers 09:51:18 11:06:18 Visit Wil Liang FRANCHISE MANAGER 350.1.13.1 0 ity of REGIONAL 4.2.7.2.686 [place] MATERNAL [phone] [facility] & CHILD [address] [facility] [place] [place] 2020-09-14 2020-09-14 Outpatient P [facility] [id number] Univers 10:00:00 10:00:00 ity of [facility] 2020-09-06 2020-09-06 Office Faculty, Rodriguez Mckay [facility] [id number] .[id number] Univers 11:22:29 11:54:07 Visit Mechelle Dean FRANCHISE MANAGER [id number] ity of REGIONAL [id number] Topher as MATERNAL [phone] [facility] ical & CHILD [address] [place] [address] 2020-09-06 2020-09-06 Outpatient R MECHELLE DEAN [facility] [id number] Univers 11:30:00 11:30:00 MECHELLE DEAN ity of [facility] 2020-08-26 2020-08-26 Office Clinic, [facility] Neurology Contin uity UNIVERSIT 1.2.840.114 [id number] Univers 15:00:27 16:57:43 Visit HernandezHoda Y HEALTH [id number] ity of CLINICS [id number] [place] [phone] [facility] [address] 2020-08-26 2020-08-26 Laboratory Only, [facility] Test UNIVERSIT 1.2.84 0.114 [id number] Univers 14:45:13 15:00:13 Only HernandezHoda Y HEALTH 350.1.13.10 ity of CL[place] [id number] [facility] [address] 2020-08-26 2020-08-26 Outpatient R [facility] [id number] Univers 15:00:00 15:00:00 ity of [facility] 2020-08-26 2020-08-26 Case Ed UNIVERSIT 1.2.840.114 [id number] Univers 00:00:00 00:00:00 Management Gumaro Y HEALTH 350.1.13.10 ity of CL[place] [id number] [facility] [address] 2020-08-26 2020-08-26 Orders Doctor JUAN DIEGO 1.2.840.114 [id number] Univers 00:00:00 00:00:00 Only Unassigned, AMADA 350.1.13.10 ity of [place] [facility] 4.2.7.2.686 [place] as [phone] [facility] [address] 2020-08-26 2020-08-26 Telephone Delmar UNIVERSIT 1.2.840.11 [id number] Univers 00:00:00 00:00:00 Hoda Y HEALTH 350.1.13.10 i ty of CLINICS [place] [id number] [facility] [address] 2020-08-24 2020-08-24 Routine Fer [facility] 1.2.840.114 [id number] Univers 09:49:30 10:04:30 Angela R FRANCHISE MANAGER 350.1.13.10 ity of Visit REGIONAL 4.2.7.2.686 [place] as MATERNAL [phone] Med ical & CHILD [address] [place] [address] 2020-08-24 2020-08-24 Outpatient R FER [facility] [id number] Univers 09:45:00 09:45:00 ROSHUNDA ity o f [facility] 2020-08-24 2020-08-24 Case Delmar, UNIVERSIT 1.2.840.114 [id number] Univers 00:00:00 00:00:00 Management Hoda Y HEALTH 350.1.13.10 ity of CLINICS [place] [id number] [facility] [address] [place] 2020-08-18 2020-08-18 Telephone SRI Walter 1.2.840.114 [id number] Univers 00:00:00 00:00:00 Malinda Y HEALTH 350.1.13.10 i ty of CLINICS 4[place].2.[place] [id number] [facility] [address] [place] 2020-08-17 2020-08-17 Telephone JUAN DIEGO Crandall 1.2.840.114 [id number] Univers 00:00:00 00:00:00 Alison YBARRA 350.1.13.10 i ty of HOSPITAL 4.2.7.2.686 [place] [id number] [facility] [address] [place] 2020-08-12 2020-08-12 Outpatient R [facility] [id number] Univers 15:00:00 15:00:00 ity of [facility] 2020-08-11 2020-08-11 Routine Enrique [facility] Resident UNIVERSIT 1.2.8 40.114 [id number] Univers 13:03:34 15:03:17 Hernandez, Hoda Y HEALTH 350.1.13.10 ity of Visit CLINICS 4.2.7.2.[place] [id number] [facility] [address] 2020-08-11 2020-08-11 Outpatient R [facility] [id number] Univers 13:45:00 13:45:00 ity of [facility] 2020-08-05 2020-08-05 Orders Doctor JUAN DIEGO 1.2.840.114 [id number] Univers 00:00:00 00:00:00 Only Unassigned, AMADA 350.1.13.10 ity of [place] [facility] 4.2.7.2.686 [place] [id number] [facility] [address] 2020-08-04 2020-08-04 Emergency [facility] 1.2.166.940 [id number] Univers 12:23:00 18:00:00 Josafat Aguilar 350.1.13.10 i ty [facility] 4.2.7.2.686 [place] [facility] [phone] [facility] [address] 2020-08-04 2020-08-04 Patient Monroe [facility] 1.2.840.114 [id number] Univers 00:00:00 00:00:00 Secure Msg Miller R FRANCHISE MANAGER 350.1.13.10 ity of [facility] 4.2.7.2.686 [place] MATERNAL [phone] Med ical & CHILD [address] [place] [address] 2020-08-04 2020-08-04 Telephone Albertomeenakshiroscoe [facility] 1.2.840.114 [id number] Univers 00:00:00 00:00:00 Mercy Naranjo FRANCHISE MANAGER 350.1.13.10 ity of [facility] 4.2.7.2.686 [place] MATERNAL [id number] [facility] & CHILD [address] [place] [address] 2020-08-04 2020-08-04 Orders Doctor JUAN DIEGO 1.2.840.114 [id number] Univers 00:00:00 00:00:00 Only Unassigned, AMADA 350.1.13.10 ity of [place] [facility] 4.2.7.2.686 [place] [phone] [address] 2020-08-04 2020-08-04 Patient Fer [facility] 1.2.840.114 [id number] Univers 00:00:00 00:00:00 Secure Msg Roshunda R FRANCHISE MANAGER 350.1.13.10 ity of REGIONAL 4.2.7.2.686 [place] MATERNAL [id number] [facility] & CHILD [address] [place] [address] 2020-08-02 2020-08-02 Patient FerSCOOTER 1.2.840.114 [id number] Univers 00:00:00 00:00:00 Secure Msg Roshunda R FRANCHISE MANAGER 350.1.13.10 ity of REGIONAL 4.2.7.2.686 [place] MATERNAL [id number] [facility] & CHILD [address] [place] [address] 2020-07-31 2020-07-31 [facility] JUAN DIEGO Girard 1.2.840.114 [id number] Univers 15:08:00 18:01:00 Encounter Alison YBARRA 350.1.13.10 ity of [place].2.[place] [id number] [facility] [address] 2020-07-28 2020-07-28 Telephone Pgy3 UNIVERSIT 1.2.840.114 [id number] Univers 00:00:00 00:00:00 Y HEALTH 350.1.13.10 i ty of CLINICS 4[place].2.[place] [id number] [facility] [address] 2020-07-28 2020-07-28 Telephone Pgy3 UNIVERSIT 1.2.840.114 [id number] 00:00:00 00:00:00 Y HEALTH 350.1.13.10 CLINICS 4.2.7.2.686 [id number] [facility] 2020-07-27 2020-07-27 Routine Fer TNBREANNE 1.2.840.114 [id number] Univers 09:46:46 10:15:31 Roshunda R FRANCHISE MANAGER 350.1.13.10 ity of Visit REGIONAL 4.2.7.2.686 [place] MATERNAL [phone] [facility] & CHILD [address] [place] [address] 2020-07-27 2020-07-27 Routine Fer TNBREANNE 1.2.840.114 [id number] 09:46:46 10:15:31 Roshunda R FRANCHISE MANAGER 350.1.13.10 Visit REGIONAL 4.2.7.2.686 MATERNAL [phone] & CHILD [address] [place] [address] 2020-07-27 2020-07-27 Outpatient R FER [facility] [id number] Univers 09:30:00 09:30:00 ROSGEANRONDA ity o [facility] 2020-07-27 2020-07-27 Outpatient R MERRY [facility] [id number] Univers 09:00:00 09:00:00 MERCY ity o f [facility] 2020-06-29 2020-06-29 Web Producer Ultrasound, Phil [facility] 1.2 .840.114 [id number] Univers 10:18:12 10:48:12 Visit Albertofrank Mercy C FRANCHISE MANAGER 350.1.13. 10 ity of REGIONAL 4.2.7.2.686 [place] MATERNAL [id number] Med ical & CHILD [address] [facility] [place] [place] 2020-06-29 2020-06-29 [facility] 1.2.904.260 [id number] Univers 09:01:46 09:44:49 Mercy C FRANCHISE MANAGER 350.1.13.10 ity of Visit REGIONAL 4.2.7.2.686 [place] MATERNAL [phone] [facility] & CHILD [address] [place] [address] 2020-06-29 2020-06-29 Outpatient R MERRY [facility] [id number] Univers 09:00:00 09:00:00 MERCY ity o [facility] 2020-06-29 2020-06-29 Abstract Fer [facility] 1.2.840.114 [id number] Univers 00:00:00 00:00:00 Rosgenaronda R FRANCHISE MANAGER 350.1.13.10 ity of REGIONAL 4.2.7.2.686 [place] MATERNAL [phone] [facility] & CHILD [address] [place] [address] 2020-06-09 2020-06-09 Web Producer Lab, Geo [facility] 1.2.840. 114 [id number] Univers 08:32:04 08:40:39 Visit Mercy Sousa FRANCHISE MANAGER 350.1.13. 10 ity of REGIONAL 4.2.7.2.686 [place] MATERNAL [id number] [facility] & [address] 2020-06-09 2020-06-09 [facility] [id number] Univers 08:30:00 08:30:00 MERCY chávez [facility] 2020-06-02 2020-06-02 Telephone [facility] 1.2.410.187 [id number] Univers 00:00:00 00:00:00 Roshunda R FRANCHISE MANAGER 350.1.13.10 ity of REGIONAL 4.2.7.2.686 [place] MATERNAL [id number] [address] 2020-06-02 2020-06-02 Telephone [facility] 1.2.132.819 [id number] Univers 00:00:00 00:00:00 Rosnda R FRANCHISE MANAGER 350.1.13.10 ity of REGIONAL 4.2.7.2.686 [place] MATERNAL [phone] [address] 2020-06-01 2020-06-01 Initial [facility] 1.2.840.114 [id number] Univers 09:09:19 09:53:37 Roshunda R FRANCHISE MANAGER 350.1.13.10 ity of Visit REGIONAL 4.2.7.2.686 [place] MATERNAL [id number] [address] 2020-06-01 2020-06-01 Outpatient R MERRY [facility] [id number] Univers 08:30:00 08:30:00 MERCY chávez [facility] 2020-06-01 2020-06-01 Orders Doctor ADAMSON 1.2.840.114 [id number] Univers 00:00:00 00:00:00 Only Unassigned, AMADA 350.1.13.10 ity of [place] [facility] 4.2.7.2.686 [place] [id number] [address] 2019-03-11 2019-03-11 Patient Doctor [facility] 1.2.840.114 [id number] Univers 00:00:00 00:00:00 Secure Msg Unassigned, FRANCHISE MANAGER 350.1.13.10 ity of [place] [facility] 4.2.7.2.686 [place] as MATERNAL [phone] Med ical & CHILD [address] [facility] [place] 2019-03-11 2019-03-11 Patient Doctor JUNA DIEGO 1.2.840.114 [id number] Univers 00:00:00 00:00:00 Secure Msg Unassigned, AMADA 350.1.13.10 ity of [place] [facility] 4.2.7.2.686 [place] [phone] [facility] [address] Results Test Description Test Time Test Comments Results Result Comments Source CBC WITH DIFF 2022-08-21 04:58:14 Test Item Value Reference Range Interpretation Comme nts WBC (test code = 6690-2) 22.88 See_Comment H [A utomated message] The system which [employer] nerated this result transmit belen reference range: 4.30 - 1 1.10 10*3/?L. The reference r shade was not used to interpr et this result as normal/abnor mal. RBC (test code = 789-8) 4.52 See_Comment [Au tomated message] The system which [employer] nerated this result transmit belen reference range: 3.93 - 5 .25 10*6/?L. The reference r shade was not used to interpr et this result as normal/abnor mal. HGB (test code = 718-7) 13.0 g/dL 11.6-15.0 HCT (test code = 4544-3) 39.2 % 35.7-45.2 MCV (test code = 787-2) 86.7 fL 80.6-95.5 MCH (test code = 785-6) 28.8 pg 25.9-32.8 MCHC (test code = 786-4) 33.2 g/dL 31.6-35.1 RDW-SD (test code = 67736-7) 40.6 fL 39.0-49.9 RDW-CV (test code = 788-0) 13.0 % 12.0-15.5 PLT (test code = 777-3) 355 See_Comment [Au tomated message] The system which ge nerated this result transmit belen reference range: 166 - 35 8 10*3/?L. The reference range was not used to interpret th is result as normal/abnormal . MPV (test code = 03269-5) 10.5 fL 9.5-12.9 NRBC/100 WBC (test code = 0.0 See_Comment [ Automated message] The 3533176100) system which ge nerated this result transmit belen reference range: 0.0 - 10 .0 /100 WBCs. The reference r shade was not used to interpr et this result as normal/abnor mal. NRBC x10^3 (test code = See_Comment [Au tomated message] The 6772556896) system which ge nerated this result transmit belen reference range: 10*3/?L. The reference range was not u sed to interpret this result as normal/abnormal . GRAN MAT (NEUT) % (test code 88.1 % = 770-8) IMM GRAN % (test code = 0.80 % 2511565173) LYMPH % (test code = 736-9) 6.2 % MONO % (test code = 5905-5) 2.9 % EOS % (test code = 713-8) 1.7 % BASO % (test code = 706-2) 0.3 % GRAN MAT x10^3(ANC) (test 20.14 10*3/uL 1.88-7.09 H code = 2438191615) IMM GRAN x10^3 (test code = 0.18 10*3/uL 0.00-0.06 H 2526151261) LYMPH x10^3 (test code = 1.42 10*3/uL 1.32-3.29 731-0) MONO x10^3 (test code = 0.67 10*3/uL 0.33-0.92 742-7) EOS x10^3 (test code = 0.40 10*3/uL 0.03-0.39 H 711-2) BASO x10^3 (test code = 0.07 10*3/uL 0.01-0.07 704-7) BANDS (test code = Increased A 7295468402) Lab Interpretation (test Abnormal code = 27018-0) [facility]. METABOLIC PANEL (43159)2022-08-21 04:27:33 Test Item Value Reference Range Interpretation Comments NA (test code = 137 mmol/L 135-145 3827391744) K (test code = 3.5 mmol/L 3.5-5.0 9040316151) CL (test code = 102 mmol/L 98-108 8587523905) CO2 TOTAL (test code = 22 mmol/L 23-31 L 4775594274) AGAP (test code = 13 2-16 2762085036) BUN (test code = 9 mg/dL 7-23 7700968259) GLUCOSE (test code = 96 mg/dL 70-110 0670075172) CREATININE (test code = 0.51 mg/dL 0.50-1.04 9229578762) TOTAL BILI (test code = 0.9 mg/dL 0.1-1.5 9480623493) CALCIUM (test code = 8.5 mg/dL 8.6-10.6 L 9955288847) T PROTEIN (test code = 7.9 g/dL 6.3-8.2 1367204280) ALBUMIN (test code = 4.2 g/dL 3.5-5.0 2996778126) ALK PHOS (test code = 105 U/L 34-122 1519218614) ALTv (test code = 24 U/L 5-35 1742-6) AST(SGOT) (test code = 26 U/L 13-40 6843610809) eGFR (test code = 145.8 mL/min/1.73m2 9825386976) MEGAN (test code = MEGAN) Association of Glomerular Filtration Rate (GFR) and Staging of Kidney Disease* + --+ --+ ------+| GFR (mL/min/1.73 m2) ?| With Kidney Damage ?| ?Without Kidney Damage+ --------+ --------+ +| ?>90 ?| ?Stage one ?| ? Normal ?+ ---+ ---+ -------+| ?60-89 ?| ?Stage two ?| ? Decreased GFR ? + --+ --+ ------+| ?30-59 ?| ?Stage three ?| ? Stage three ? + --+ --+ ------+| ?15-29 ?| ?Stage four ? | ? Stage four ?+ ---+ ---+ -------+| ?<15 (or dialysis) ? ?| ?Stage five ? | ? Stage five ?+ ---+ ---+ -------+ *Each stage assumes the associated GFR level has been in effect for at least three months. ?Stages 1 to 5, with or without kidney disease, indicate chronic kidney disease. Notes: Determination of stages one and two (with eGFR >59mL/min/1.73 m2) requires estimation of kidney damage for at least three months as defined by structural or functional abnormalities of the kidney, manifested by either:Pathological abnormalities or Markers of kidney damage (including abnormalities in the composition of the blood or urine or abnormalities in imaging tests). Lab Interpretation Abnormal (test code = 11436-0) [id number] Test Item Value Reference Range Interpretation Comments POCT PREG (test code = 1605) Negative On board controls acceptable with Yes C Line (test code = 3574) POCT PREG LOT # (test code = 3575) [id number] POCT PREG TEST DATE (test 12/30/2023 code = 3576) Lab Interpretation (test code = Normal 77817-6) [facility]"
[2023-01-01] MEDS ORDERED: dexAMETHasone 10 MG/ML VIAL ONE (17:46)
--- NOTE | 2023-01-01 18:39 | ER ---
Nurse's Notes [facility] Name: Thelma Modi Age: 27 yrs Sex: Female : 1995 Arrival Date: 01/01/2023 Time: 16:38 Bed 12 Private MD: Diagnosis: Acute pharyngitis, unspecified Presentation: 01/01 16:57 Chief complaint: Patient states: "I've had a sore throat since Sunday and it's getting mb9 worse.". Coronavirus screen: Vaccine status: Patient reports receiving the 2nd dose of the covid vaccine. Ebola Screen: No symptoms or risks identified at this time. Initial Sepsis Screen: Does the patient meet any 2 criteria? No. Patient's initial sepsis screen is negative. Does the patient have a suspected source of infection? No. Patient's initial sepsis screen is negative. Risk Assessment: Do you want to hurt yourself or someone else? Patient reports no desire to harm self or others. Onset of symptoms was January 01, 2023. 16:57 Method Of Arrival: Ambulatory mb9 16:57 Acuity: OC 4 mb9 Triage Assessment: 16:58 General: Appears in no apparent distress. Behavior is calm, cooperative. Pain: mb9 Complains of pain in throat. EENT: Throat is reddened Reports pain when swallowing. 17:03 Neuro: Lee Agitation-Sedation Scale (RASS): 0 - Alert and Calm Level of mb9 Consciousness is awake, alert, obeys commands, Oriented to person, place, time, situation, Appropriate for age. Cardiovascular: Patient's skin is warm and dry. Respiratory: Reports cough that is Airway is patent Respiratory effort is even, unlabored, Respiratory pattern is regular, symmetrical, Breath sounds are clear bilaterally. GI: No signs and/or symptoms were reported involving the gastrointestinal system. : No signs and/or symptoms were reported regarding the genitourinary system. Derm: Skin is pink, warm \\T\\ dry. Musculoskeletal: Range of motion: intact in all extremities. Historical: - Allergies: 16:55 No Known Allergies; mb9 - Home Meds: 16:55 aspirin 81 mg Oral TbEC 1 tab once daily [Active]; Vitamin Oral [Active]; mb9 - PMHx: 16:55 miscarriage; mb9 - PSHx: 16:55 None; mb9 - Immunization history:: Adult Immunizations up to date. - Social history:: Smoking status: Patient denies any tobacco usage or history of. Screenin:22 [facility] ED Fall Risk Assessment (Adult) Score/Fall Risk Level 0 - 2 = Low Risk. Abuse iw screen: Denies threats or abuse. Denies injuries from another. Nutritional screening: No deficits noted. Tuberculosis screening: No symptoms or risk factors identified. Assessment: 17:22 General: Appears in no apparent distress. Behavior is calm, cooperative. Pain: iw Complains of pain in throat. Neuro: Level of Consciousness is awake, alert, obeys commands, Oriented to person, place, time, situation, Moves all extremities. Full function. Cardiovascular: Patient's skin is warm and dry. Respiratory: Airway is patent Respiratory effort is even, unlabored. Derm: Skin is intact, is healthy with good turgor. 18:09 Reassessment: Patient appears in no apparent distress at this time. Patient and/or iw family updated on plan of care and expected duration. Pain level reassessed. Patient is alert, oriented x 3, equal unlabored respirations, skin warm/dry/pink. Respiratory: Airway is patent. Vital Signs: 16:57 BP 123 / 87; Pulse 102; Resp 18; Temp 99; Pulse Ox 98% on R/A; Weight 127.01 kg; Height mb9 5 ft. 5 in. ; 16:57 Body Mass Index 46.59 (127.01 kg, 165.1 cm) mb9 ED Course: 16:43 Patient arrived in ED. mg5 16:44 [facility]gron FNP [facility] 7 16:44 Román Nieves MD is Attending Physician. 7 16:54 Arm band placed on. mb9 16:58 Triage completed. mb9 17:22 Rianna Valiente, RN is Primary Nurse. iw 18:09 Patient has correct armband on for positive identification. Provided Education on: iw steroid shot . Administered Medications: 17:36 Drug: Dexamethasone IM 10 mg IM once Route: IM; Site: right vastus lateralis; iw 18:54 Drug: Ibuprofen PO 600 mg PO once Route: PO; iw Medication: 17:22 VIS not applicable for this client. iw Outcome: 18:38 Discharge ordered by . [facility] 18:55 Patient left the ED. iw Signatures: Rianna Valiente, RN RN iw Rosalia Negron, AUTOMATIC DISPENSER MECHANIC AUTOMATIC DISPENSER MECHANIC jh7 Nelly Haque RN RN mb9 Cassia Coffman mg5 Corrections: (The following items were deleted from the chart) 17:04 16:58 General: Appears in no apparent distress. Behavior is calm, cooperative, mb9 mb9
--- NOTE | 2023-01-01 18:39 | EDPHYS ---
Physician Documentation [facility] Name: Thelma Modi Age: 27 yrs Sex: Female : 1995 Arrival Date: 01/01/2023 Time: 16:38 Bed 12 Private MD: ED Physician Román Nieves HPI: 01/01 16:57 This 27 yrs old Female presents to ER via Ambulatory with complaints of Sore jh7 Throat, Fever. 16:57 The patient presents with sore throat. The patient describes throat pain as burning. jh7 Onset: The symptoms/episode began/occurred 3 day(s) ago. Associated signs and symptoms: Pertinent positives: fever, Sore throat Pertinent negatives chest pain, cough, diarrhea, earache, headache, nausea. 27-year-old female presents for sore throat and fever for the past 3 days. The patient also reports that she feels that her tonsils are swollen and she has noticed white patches on the back of her throat.. Historical: - Allergies: 16:55 No Known Allergies; mb9 - Home Meds: 16:55 aspirin 81 mg Oral TbEC 1 tab once daily [Active]; Vitamin Oral [Active]; mb9 - PMHx: 16:55 miscarriage; mb9 - PSHx: 16:55 None; mb9 - Immunization history:: Adult Immunizations up to date. - Social history:: Smoking status: Patient denies any tobacco usage or history of. ROS: 16:57 Eyes: Negative for injury, pain, redness, and discharge, Neck: Negative for injury, jh7 pain, and swelling, Cardiovascular: Negative for chest pain, palpitations, and edema, Respiratory: Negative for shortness of breath, cough, wheezing, and pleuritic chest pain, Back: Negative for injury and pain, MS/Extremity: Negative for injury and deformity, Skin: Negative for injury, rash, and discoloration, Neuro: Negative for headache, weakness, numbness, tingling, and seizure, 16:57 Constitutional: Positive for fever, 16:57 ENT: Positive for sore throat, 16:57 All other systems are negative, Exam: 16:57 Constitutional: This is a well developed, well nourished patient who is awake, alert, jh7 and in no acute distress. Eyes: Pupils equal round and reactive to light, extra-ocular motions intact. Lids and lashes normal. Conjunctiva and sclera are non-icteric and not injected. Cornea within normal limits. Periorbital areas with no swelling, redness, or edema. Neck: Trachea midline, no thyromegaly or masses palpated, and no cervical lymphadenopathy. Supple, full range of motion without nuchal rigidity, or vertebral point tenderness. No Meningismus. Cardiovascular: Regular rate and rhythm with a normal S1 and S2. No gallops, murmurs, or rubs. Normal PMI, no JVD. No pulse deficits. Respiratory: Lungs have equal breath sounds bilaterally, clear to auscultation and percussion. No rales, rhonchi or wheezes noted. No increased work of breathing, no retractions or nasal flaring. Abdomen/GI: Soft, non-tender, with normal bowel sounds. No distension or tympany. No guarding or rebound. No evidence of tenderness throughout. Skin: Warm, dry with normal turgor. Normal color with no rashes, no lesions, and no evidence of cellulitis. MS/ Extremity: Pulses equal, no cyanosis. Neurovascular intact. Full, normal range of motion. Neuro: Awake and alert, GCS 15, oriented to person, place, time, and situation. Motor strength 5/5 in all extremities. Sensory grossly intact. Normal gait. 16:57 ENT: Posterior pharynx: Airway: normal, Tonsils: bilaterally enlarged, with erythema, with exudate, Uvula: normal, midline, erythema, that is moderate, exudate, that is moderate, Vital Signs: 16:57 BP 123 / 87; Pulse 102; Resp 18; Temp 99; Pulse Ox 98% on R/A; Weight 127.01 kg; Height mb9 5 ft. 5 in. ; 16:57 Body Mass Index 46.59 (127.01 kg, 165.1 cm) 9 MDM: 16:44 Patient medically screened. [facility] 18:42 Differential diagnosis: group A strep tonsillitis, pharyngitis, tonsillitis. Data [facility] reviewed: vital signs, nurses notes. I considered the following discharge prescriptions or medication management in the emergency department Medications were administered in the Emergency Department. See MAR. Counseling: I had a detailed discussion with the patient and/or guardian regarding the historical points, exam findings, and any diagnostic results supporting the discharge/admit diagnosis, to return to the emergency department if symptoms worsen or persist or if there are any questions or concerns that arise at home. Response to treatment: the patient's symptoms have mildly improved after treatment. 01/01 16:49 Order name: Strep jh7 01/01 18:26 Order name: Throat Culture EDMS Administered Medications: 17:36 Drug: Dexamethasone IM 10 mg IM once Route: IM; Site: right vastus lateralis; 18:54 Drug: Ibuprofen PO 600 mg PO once Route: PO; Disposition: 01/02 12:09 Co-signature as Attending Physician, Román Nieves MD I reviewed the patient's care rn provided by the Advanced Practice Provider and agree with the diagnosis and treatment plan. Disposition Summary: 01/01/23 18:38 Discharge Ordered Notes: Location: Home [facility] Problem: new [facility] Symptoms: have improved [facility] Condition: Stable [facility] Diagnosis - Acute pharyngitis, unspecified 7 Followup: [facility] - With: Private Physician - When: 2 - 3 days - Reason: Recheck today's complaints Discharge Instructions: - Discharge Summary Sheet [facility] - Pharyngitis [facility] - Strep Throat, Adult [facility] Forms: - Work release form iw - Medication Reconciliation Form [facility] - Thank You Letter [facility] - Antibiotic Education [facility] - Patient Portal Instructions [facility] - Leadership Thank You Letter [facility] Prescriptions: - Amoxicillin 500 mg Oral capsule - take 1 capsule ORAL route 2 times per day for 10 days; 20 tablet; Refills: 0, jh7 Product Selection Permitted Signatures: Dispatcher [employer] Rianna Alvarado RN RN Román Nieves MD MD rn Hadash, Jennifer, FNP [employer] [facility] Nelly Haque RN RN mb9
[2023-01-01] MEDS ORDERED: IBUPROFEN 200 MG TAB PO ONE (19:02)
[2023-01-01 19:17] VITALS: BP 123/87; TEMP 99; O2SAT 98
== END 2023-01-01 18:55 | disposition home or self-care (01) ==
LOC: ER 16:38
DX: J02.9 Acute pharyngitis, unspecified (principal); R50.9 Fever, unspecified; Z79.82 Long term (current) use of aspirin
CPT/HCPCS: 87070; 87081; 96372; 99284; J1100

== ENCOUNTER 2023-01-31 07:05 | Emergency (ER) | payer SELFPAY ==
--- OUTSIDE RECORDS SUMMARY | 2023-01-31 07:08 | XMS REPORT | Continuity of Care Document ---
:1995 Author Organization [facility] t Address [address] [place] [address] [place] [id number] Care Team Providers Name Role Phone Mercy Marmolejo Primary Care Physician [phone] NATHANIEL GALLO Attending Clinician Unavailable HODA HERNANDEZ Attending Clinician Unavailable DEBI BAKER Attending Clinician Unavailable Jeffery MORRISON Attending Clinician Unavailable Jeffery Baldwin Attending Clinician ERIKA SWAN Attending Clinician Unavailable Erika Swan MD Attending Clinician Anika Cardenas MA Attending Clinician Unavailable MERCY SOUSA Attending Clinician Unavailable Doctor Unassigned, [place] Attending Clinician Unavailable CATHY BURGER Attending Clinician [...] Unavailable Leobardo SANCHEZ, Bel O Attending Clinician [phone] BEL QUIROZ Attending Clinician Unavailable Pgy3 Attending Clinician Unavailable Edgardo PICKARD, Chelsi Attending Clinician AMADOR ESTEBAN Attending Clinician Unavailable Rocco BUILD TECHNICIAN, Amador Sweeney Attending Clinician DORENE RICHARDSON Attending Clinician Unavailable Cole PICKARD, Dorene Walker Attending Clinician ELEAZAR GIBSON Attending Clinician Unavailable Shahzad Stoddard DO Attending Clinician Fer BLEVINSP, Angela Mccarthy Attending Clinician Jose PICKARD, Arturo Attending Clinician Belen PICKARD, Kenyatta Ceballos Attending Clinician [phone] Damian PICKARD, Koby Attending Clinician Sierra Trujillo MD Attending Clinician SIERRA TRUJILLO Attending Clinician Unavailable ANGELA MONROE Attending Clinician Unavailable Faculty, Ang chp Mfm Attending Clinician Unavailable Hellen PICKARD, Alison Coy Attending Clinician [phone] Adrianne Kulkarni MD Attending Clinician Adrian RN, Liliam Attending Clinician Unavailable Wil Liang MD Attending Clinician Ultrasound, Ang-Mfm Attending Clinician Unavailable Leonel Mills MD, Liang Attending Clinician [phone] Mechelle Dean MD Attending Clinician MECHELLE DEAN Attending Clinician Unavailable MECHELLE DEAN Attending Clinician Unavailable [facility], [facility] Continuity Attending Clinician Unavail able Delmar PICKARD, Hoda Attending Clinician Kuna, [facility] Test Attending Clinician Unavailable Gumaro Ward MD Attending Clinician Jose Angel CELAYA, [place]inda Attending Clinician Alison Crandall MD Attending Clinician [facility] Attending Clinician Unavailable Josafat Isaac DO Attending Clinician Akinsipe WHCNPMercy Attending Clinician [phone] Lab, Ang-Rmchp Attending Clinician Unavailable NATHANIEL GALLO Admitting Clinician Unavailable HODA HERNANDEZ Admitting Clinician Unavailable ALISON GIRARD Admitting Clinician Unavailable Jeffery MORRISON Admitting Clinician Unavailable Sabino PICKARD, Nathaniel Echols Admitting Clinician DORENE RICHARDSON Admitting Clinician Unavailable Cole PICKARD, Dorene Walker Admitting Clinician Shahzad Stoddard DO Admitting Clinician Adrianne Kulkarni MD Admitting Clinician Alison Girard MD Admitting Clinician [phone] Payers Payer Name Policy Type Policy Number Effective Date Expiration Date [facility] [id number] 2018 [facility] MEDICAID 00:00:00 Problems Condition Condition Condition Status Onset Resolution Last Treating Co mments Source Name Details Category Date Date Treatment Clinician Date S/P left S/P left Disease Active Unive rs oophorecto oophorecto 3-10 it y of my my 00:00: [address] Disease Active 2020-03 U nivers anemia anemia 1-15 ity of 00:00: [address] Disease Active 2020-03 Univers (spontaneo (spontaneo 0-25 it y of [place] vaginal [place] delivery[place] 00 [facility] Branch Morbid Morbid Disease Active Univers obesity obesity 8-26 ity of with body with body [facility]: [facility] mass index mass index 00 Me dical of Branch 40.0-49.9 40.0-49.9 Adnexal Adnexal Disease Active Univers mass mass 5-04 ity of 00:00: [address] BMI BMI Disease Active 2021-0 Univers 50.0-59.9, 50.0-59.9, 3-09 it y of adult adult 00:00: [place] [address] [facility] [place] False False Disease Active 2018-03 Overview: Univer s positive positive 05-12 Formattin ity of HIV HIV 00:00: g of this [place] serology serology 00 note Medica l might be Branch different from the original. Repeat labs in 4 weeks and 12 weeks Rubella Rubella Disease Active Overview: Univ ers non-immune non-immune 09-09 Formattin ity of status, status, 00:00: g of this [place] antepartum antepartum 00 note Me dical might be Branch different from the original. Address pp Compressio Compressio Disease Active U nivers n of brain n of brain 05-23 it y of 00:00: [place] [address] Medical [place] Headache Headache Disease Active Overview: Un erin 05-23 Formattin ity of 00:00: g of this [place] 00 note Medical might be Branch different from the original. 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 SARS-CoV-2 (event) 00:00:00 22:04:00 [facility] History of Social 2021-06-02 2021-06-02 Univers ity of function 00:00:00 00:00:00 [facility] Tobacco use and 2021-03-14 2021-03-14 Smokeless Universit y of exposure 00:00:00 00:00:00 tobacco non-user [facility] dical Branch Alcohol intake 2020-07-27 2020-07-27 Current University of 00:00:00 00:00:00 non-drinker of [facility] alcohol Branch (finding) Sex Ass[birth year] At [birth year] Universit y of 00:00:00 00:00:00 [facility] Smoking Status Start Date Stop Date Source Never smoked tobacco [facility] Ex-smoker 2021-03-14 00:00:00 2021-03-14 00:00:00 [facility] Medications Ordered Filled Start Stop Current Ordering Indication Dosage Frequency Signature Comments Components Source Medication Medication Date Date Medication? Clinician (SIG) Name Name methylpredn No 125mg 125 mg, U nivers isolone [...] Medical Infusion, Branch ONCE, 1 dose, On [facility] 08/21/22 at 0100, STAT iopamidol 2022- No [id number] 100mL 100 mL, Univers (ISOVUE 08-21 Intravenou ity o f 370-500 mL) 05:15: 04:20 s, ONCE, 1 [place] injection 00 :00 dose, On Medica l 100 mL Mon [place] 08/21/22 at 0015, Routine ketorolac 2022- No 15mg 15 mg, Unive rs (TORADOL) 08-21 Slow IV ity of injection 04:30: 03:45 Push, [place] 15 mg 00 :00 ONCE, 1 Medical dose, On [facility] 08/20/22 at 2330, RADHA NaCl 0.9% 2022- No 1000mL at 999 Uni vers (NS) bolus 08-21 mL/hr, ity of infusion 04:30: 05:15 1,000 mL, Topher as 1,000 mL 00 :00 IV Medical Infusion, Branch ONCE, 1 dose, On [place] 08/20/22 at 2330, STAT cefTRIAXone 2022- No 1000mg 1,000 mg, Univers (ROCEPHIN) 08-21 IV ity of 1,000 mg in 03:30: 04:15 Piggyback, [place] NaCl 0.9% 00 :00 ONCE, 1 Medical (NS) 100 mL dose, On [facility] MINI-BAG [place] 08/20/22 at 2230, Administer over 30 Minutes, 100 mL
Reas on for Anti-Infec tive: Documented Infection< br>Documen belen Infection Site: HEENT<br&g t;Duration of Therapy: Other (see Comments) predniSONE Yes [id number] 1 PO BID x Univers 20 mg 08-21 4 days ity of tablet 00:00: [place] 00 Medical Branch amoxicillin 2022- No [id number] 500mg Take 1 Univers 500 mg 08-21 06-09 capsule by ity of capsule 00:00: 04:59 mouth in [place] 00 :00 the Medical morning Branch and 1 capsule at noon and 1 capsule in the evening. Do all this for 10 days. ketorolac 2022- No 30mg 30 mg, Unive rs (TORADOL) 07-27 Intramuscu ity of injection 11:00: 10:11 lar, ONCE, [place] 30 mg 00 :00 1 dose, On Medical [facility] 07/27/22 Branch at 0600, RADHA carbamide Yes [id number] 5[drp] Place 5 Univers peroxide - 60698 Drops in ity of 6.5 % otic 00:00: left ear [place] as solution 00 in the Medical morning Branch and 5 Drops in the evening. Until ear wax is removed carbamide Yes [id number] 5[drp] Place 5 Univers peroxide 07-27 30830 Drops in ity of 6.5 % otic 00:00: left ear [place] as solution 00 in the Medical morning Branch and 5 Drops in the evening. Until ear wax is removed amoxicillin 2022- No [id number] 1{tbl} Take 1 Univers -clavulanat 07-27- tablet [...] 7 days. Indication s: acute pain ibuprofen 2-0 Yes [id number] 600mg Take 1 Univers 600 mg 3-11 tablet by ity of tablet 00:00: mouth [place] 00 every 6 Medical (six) Branch hours as needed for Pain (scale 1-3). docusate 2022-0 Yes [id number] 100mg Take 1 U nivers 100 mg [...] Indication s: acute pain ibuprofen 2021-0 Yes [id number] 600mg Take 1 Univers 600 mg 3-11 tablet by ity of tablet 00:00: mouth [place] 00 every 6 Medical (six) Branch hours as needed for Pain (scale 1-3). docusate 2021-0 Yes [id number] 100mg Take 1 U nivers 100 mg [...] Indication s: acute pain ibuprofen 2021-0 Yes [id number] 600mg Take 1 Univers 600 mg 3-11 tablet by ity of tablet 00:00: mouth [place] 00 every 6 Medical (six) Branch hours as needed for Pain (scale 1-3). docusate 2022-0 Yes [id number] 100mg Take 1 U nivers 100 mg [...] Indication s: acute pain ibuprofen 2021-0 Yes [id number] 600mg Take 1 Univers 600 mg 3-11 tablet by ity of tablet 00:00: mouth [place] 00 every 6 Medical (six) Branch hours as needed for Pain (scale 1-3). docusate 2022-0 Yes [id number] 100mg Take 1 U nivers 100 mg [...] Indication s: acute pain ibuprofen 2021-0 Yes [id number] 600mg Take 1 Univers 600 mg 3-11 tablet by ity of tablet 00:00: mouth [place] 00 every 6 Medical (six) Branch hours as needed for Pain (scale 1-3). docusate 2021-0 Yes [id number] 100mg Take 1 U nivers 100 mg [...] Indication s: acute pain ibuprofen 2021-0 Yes [id number] 600mg Take 1 Univers 600 mg 3-11 tablet by ity of tablet 00:00: mouth [place] 00 every 6 Medical (six) Branch hours as needed for Pain (scale 1-3). docusate 2022-0 Yes [id number] 100mg Take 1 U nivers 100 mg [...] Indication s: acute pain ciprofloxac 2021- No [id number] 500mg Take 1 Univers in HCl 500 03-28 tablet by it y of mg tablet 00:00: 00:00 mouth [place] 00 :00 (two) Medical times Branch daily. neomycin-po 2021- No [id number] 3[drp] Place 3 Univers lymyxin-hyd 03-28 Drops in it y of rocortisone 00:00: 00:00 right ear [place] 3.5-10,000- 00 :00 4 (four) Medi rai 1 times Branch mg/mL-unit/ daily. mL-% otic susp norethindro 2020-03- No [id number] .35mg Take 1 Univers ne 0.35 mg 05-01 tablet by ity of tablet 00:00: 05:59 mouth [place] 00 :00 daily for Medical 30 days. Branch proMETHazin 2020- No [id number] 25mg Take 1 Univers e 25 mg 06-29-20 tablet by ity of tablet 00:00: 00:00 mouth [place] 00 :00 every 6 Medical (six) Branch hours as needed for Nausea and Vomiting (N/V). proMETHazin 2020- No [id number] 25mg Take 1 Univers e 25 mg 06-29-20 tablet by ity of tablet 00:00: 00:00 mouth [place] 00 :00 every 6 Medical (six) Branch hours as needed for Nausea and Vomiting (N/V). 2021- No [id number] 1{packe Take 1 Univers vit 3-06-03 t} Packet by ity of 33-iron-fol 00:00: 00:00 [place] ic-dha 00 :00 daily. Medical (SELECT-OB Branch + DHA) 29 mg iron-1 mg -250 mg combo pack 2021- No [id number] 1{packe Take 1 Univers vit 3-11 26- t} Packet by ity of 33-iron-fol 00:00: 00:00 [place] ic-dha 00 :00 daily. Medical (SELECT-OB Branch + DHA) 29 mg iron-1 mg -250 mg combo pack 2021- No [id number] 1{packe Take 1 Univers vit 306-03 t} Packet by ity of 33-iron-fol 00:00: 00:00 [place] ic-dha 00 :00 daily. Medical (SELECT-OB Branch + DHA) 29 mg iron-1 mg -250 mg combo pack 2021- No [id number] 1{packe Take 1 Univers vit 3-06-03 t} Packet by ity of 33-iron-fol 00:00: 00:00 [place] ic-dha 00 :00 daily. Medical (SELECT-OB Branch + DHA) 29 mg iron-1 mg -250 mg combo pack Immunizations Ordered Filled Date Status Comments Source Immunization Name Immunization Name [facility] 2021-01-16 Completed University of 00:00:00 [facility] Varicella 2021-01-16 Completed University of (varivax)(chicken 00:00:00 [place] M edical pox) Branch MMR 2021-01-16 Completed University of 00:00:00 [facility] Varicella 2021-01-16 Completed University of (varivax)(chicken 00:00:00 [place] M edical pox) Branch MMR 2021-01-16 Completed University of 00:00:00 [facility] Varicella 2021-01-16 Completed University of (varivax)(chicken 00:00:00 [place] M edical pox) Branch MMR 2021-01-16 Completed University of 00:00:00 [facility] Varicella 2021-01-16 Completed University of (varivax)(chicken 00:00:00 [place] M edical pox) Branch MMR 2021-01-16 Completed University of 00:00:00 [facility] Varicella 2021-01-16 Completed University of (varivax)(chicken 00:00:00 [place] M edical pox) Branch MMR 2021-01-16 Completed University of 00:00:00 [facility] Varicella 2021-01-16 Completed University of (varivax)(chicken 00:00:00 [place] M edical pox) Branch SARS-COV-2 COVID-19 2020-12-22 Completed [facility] [employer] VACCINE 00:00:00 [place] [facility] SARS-COV-2 COVID-19 2020-12-22 Completed Unive rsity of PFIZER VACCINE 00:00:00 [place] [facility] SARS-COV-2 COVID-19 2020-12-22 Completed Unive rsity of PFIZER VACCINE 00:00:00 [facility] SARS-COV-2 COVID-19 2020-12-22 Completed Unive rsity of PFIZER VACCINE 00:00:00 [facility] SARS-COV-2 COVID-19 2020-12-22 Completed Unive rsity of PFIZER VACCINE 00:00:00 [facility] SARS-COV-2 COVID-19 2020-12-22 Completed Unive rsity of PFIZER VACCINE 00:00:00 [facility] SARS-COV-2 COVID-19 2020-12-01 Completed Unive rsity of PFIZER VACCINE 00:00:00 [facility] SARS-COV-2 COVID-19 2020-12-01 Completed Unive rsity of PFIZER VACCINE 00:00:00 [facility] SARS-COV-2 COVID-19 2020-12-01 Completed Unive rsity of PFIZER VACCINE 00:00:00 [facility] SARS-COV-2 COVID-19 2020-12-01 Completed Unive rsity of PFIZER VACCINE 00:00:00 [facility] SARS-COV-2 COVID-19 2020-12-01 Completed Unive rsity of PFIZER VACCINE 00:00:00 [place] [facility] SARS-COV-2 COVID-19 2020-12-01 Completed Unive rsity of PFIZER VACCINE 00:00:00 [facility] TDAP 2020-11-15 Completed University of 00:00:00 [facility] TDAP 2020-11-15 Completed University of 00:00:00 [facility] TDAP 2020-11-15 Completed University of 00:00:00 [facility] TDAP 2020-11-15 Completed University of 00:00:00 [facility] TDAP 2020-11-15 Completed University of 00:00:00 [facility] TDAP 2020-11-15 Completed University of 00:00:00 [facility] Influenza Virus 2020-06-01 Completed Universit y of Vaccine Quad .5 mL 00:00:00 [place] Medical IM 6+ MO Branch Influenza Virus 2020-06-01 Completed Universit y of Vaccine Quad .5 mL 00:00:00 [place] Medical IM 6+ MO Branch Influenza Virus 2020-06-01 Completed Universit y of Vaccine [place] .5 mL 00:00:00 [place] Medical IM 6+ MO Branch Influenza Virus 2020-06-01 Completed Universit y of Vaccine [place] .5 mL 00:00:00 [place] Medical IM 6+ MO Branch Influenza Virus 2020-06-01 Completed Universit y of Vaccine [place] .5 mL 00:00:00 [place] Medical IM 6+ MO Branch Influenza Virus 2020-06-01 Completed Universit y of Vaccine [place] .5 mL 00:00:00 [place] Medical IM 6+ MO Branch Influenza Virus 2019-02-27 Completed Universit y of Vaccine [place] .5 mL 00:00:00 [facility] IM 6+ MO Branch Influenza Virus 2019-02-27 Completed Universit y of Vaccine [place] .5 mL 00:00:00 [facility] IM 6+ MO Branch Influenza Virus 2019-02-27 Completed Universit y of Vaccine [place] .5 mL 00:00:00 [facility] IM 6+ MO Branch Influenza Virus 2019-02-27 Completed Universit y of Vaccine [place] .5 mL 00:00:00 [facility] IM 6+ MO Branch Influenza Virus 2019-02-27 Completed Universit y of Vaccine [place] .5 mL 00:00:00 [facility] 6+ MO Branch Influenza Virus 2019-02-27 Completed Universit y of Vaccine [place] .5 mL 00:00:00 [facility] 6+ MO Branch Influenza Virus Unknown Completed Universit y of Vaccine [place] .5 mL [facility] 6+ MO Branch (FLUZONE/FLULAVAL/F LUARIX) Influenza Virus Unknown Completed Universit y of Vaccine [place] .5 mL [facility] 6+ MO Branch (FLUZONE/FLULAVAL/F LUARIX) TDAP Unknown Completed [facility] SARS-COV-2 COVID-19 Unknown Completed Unive rsity of PFIZER VACCINE [place] [facility] SARS-COV-2 COVID-19 Unknown Completed Unive rsity of PFIZER VACCINE [facility] MMR Unknown Completed [facility] Varicella Unknown Completed University (varivax)(chicken [place] M edical pox) Branch Influenza Virus Unknown Completed Universit y of Vaccine [place] .5 mL [facility] 6+ MO Branch (FLUZONE/FLULAVAL/F LUARIX) Influenza Virus Unknown Completed Universit y of Vaccine [place] .5 mL [facility] IM 6+ MO Branch (FLUZONE/FLULAVAL/F LUARIX) TDAP Unknown Completed [facility] SARS-COV-2 COVID-19 Unknown Completed Unive rsity of PFIZER VACCINE [place] [facility] SARS-COV-2 COVID-19 Unknown Completed Unive rsity of PFIZER VACCINE [facility] MMR Unknown Completed [facility] Varicella Unknown Completed University (varivax)(chicken [place] M edical pox) Branch Influenza Virus Unknown Completed Universit y of Vaccine [place] .5 mL [facility] IM 6+ MO Branch (FLUZONE/FLULAVAL/F LUARIX) Influenza Virus Unknown Completed Universit y of Vaccine [place] .5 mL [facility] IM 6+ MO Branch (FLUZONE/FLULAVAL/F LUARIX) Influenza Virus Unknown Completed Universit y of Vaccine [place] .5 mL [facility] 6+ MO Branch (FLUZONE/FLULAVAL/F LUARIX) Influenza Virus Unknown Completed Universit y of Vaccine [place] .5 mL [facility] IM 6+ MO Branch (FLUZONE/FLULAVAL/F LUARIX) Vital Signs Vital Name Observation Time Observation Value Comments Source Systolic blood 2022-08-21 06:30:00 115 mm[Hg] [facility] sity of pressure [facility] Diastolic blood 2022-08-21 06:30:00 85 mm[Hg] [facility] Heart rate 2022-08-21 06:30:00 96 /min [facility] Respiratory rate 2022-08-21 06:30:00 21 /min [facility] Oxygen saturation in 2022-08-21 06:30:00 94 /min [facility] Arterial blood by [facility] Pulse oximetry [place] Body temperature 2022-08-21 03:04:[address] [facility] Body height 2022-08-21 03:04:00 167.6 cm [facility] Body weight 2022-08-21 03:04:00 134.401 kg [facility] BMI 2022-08-21 03:04:00 47.82 kg/m2 [facility] Systolic blood 2022-07-27 09:07:00 141 mm[Hg] Univer sity of pressure [facility] Diastolic blood 2022-07-27 09:07:00 88 mm[Hg] Unive rsity of pressure [facility] Heart rate 2022-07-27 09:07:00 96 /min Universi ty of [facility] Body temperature 2022-07-27 09:07:00 36.61 Kanchan Univ ersity of [facility] Respiratory rate 2022-07-27 09:07:00 16 /min Univ ersity of [facility] Body height 2022-07-27 09:07:00 167.6 cm Universi ty of [facility] Body weight 2022-07-27 09:07:00 127.461 kg Universi ty of [facility] BMI 2022-07-27 09:07:00 45.35 kg/m2 Universi ty of [facility] Oxygen saturation in 2022-07-27 09:07:00 98 /min [facility] Arterial blood by [facility] Pulse oximetry Branch Systolic blood 2021-06-16 19:17:00 135 mm[Hg] Univer sity of [facility] Diastolic blood 2021-06-16 19:17:00 76 mm[Hg] Unive rsity of pressure [facility] Heart rate 2021-06-16 19:17:00 99 /min Universi ty of [facility] Body temperature 2021-06-16 19:17:00 36.5 Kanchan Univ ersity of [facility] Respiratory rate 2021-06-16 19:17:00 19 /min Univ ersity of [facility] Body height 2021-06-16 19:17:00 167.6 cm Universi ty of [facility] Body weight 2021-06-16 19:17:00 127.551 kg Universi ty of [facility] BMI 2021-06-16 19:17:00 45.39 kg/m2 Universi ty of [facility] Procedures Procedure Date / Time Performing Clinician Source Performed CT SOFT TISSUE NECK W 2022-08-21 04:26:00 Jeffery Morrison [facility] COMP. METABOLIC PANEL 2022-08-21 03:38:00 Jeffery Morrison [facility] ([id number]) Medical [place] CBC WITH DIFF 2022-08-21 03:38:00 Jeffery Morrison [place] [facility] RAPID STREP SCREEN FOR 2022-08-21 03:38:00 Jeffery Morrison [facility] POCT TEST 2022-08-21 03:35:00 Jeffery Morrison [facility] CONSENT/REFUSAL FOR 2022-08-21 02:49:37 Doctor Unassigned, No Un iversity of [place] DIAGNOSIS AND TREATMENT Name [facility] NOTICE OF PRIVACY 2022-07-27 09:03:11 [facility] CONSENT/REFUSAL FOR 2022-07-27 09:02:34 [facility] VACCINATIONS - 2021-11-04 05:01:00 Doctor Unassigned, No Univer [facility] CONSENTS, ELIGIBILITY, Name Medical [place] HISTORY Encounters Start End Encounter Admission Attending Care Care Encounter Source Date/Time Date/Time Type Type Clinicians Facility Department ID 2021-03-04 Outpatient R SABINO [facility] SUPERINTENDENT [id number] Univers 09:57[facility]00 [facility] Outpatient SABINO [facility] SUPERINTENDENT [id number] Univers 16:32:48 ARMSTRONG ity [facility] 2021-01-24 Emergency [facility] [id number] [facility]23 Inpatient HERNANDEZ, [facility] SUPERINTENDENT [id number] Univers 20:05:14 HODA ity [facility] 2021-01-23 Emergency [facility] [id number] Univers 18:40:15 ity [facility] 2021-01-23 Outpatient P [facility] ISREAL [id number] Univers 17:56:54 ity of [facility] 2021-01-23 Inpatient P [facility] ISREAL [id number] Univers 17:56:29 ity of [facility] 2021-01-23 Outpatient P [facility] ISREAL [id number] Univers 17:56:27 ity [facility] 2022-08-20 2022-08-21 Emergency X Jeffery MORRISON [facility] ERT [id number] Univers 22:07:00 01:56:00 ity of [facility] 2022-08-20 2022-08-21 Emergency Jeffery Morrison [facility] [id number] Univers 22:07:00 01:56:00 Kiki JEFF [id number] i ty [place] [id number] [address] 2022-07-27 2022-07-27 Emergency X [facility] ERT [id number] Univers 04:11:00 06:19:00 , ERIKA ity of [facility] 2022-07-27 2022-07-27 Formerly [facility] 1.2.840.114 [id number] Univers 04:11:00 06:19:00 , Erika LOMENDY 350.1.13.10 i ty [place] [id number] [address] 2022-07-25 2022-07-25 Case EduinSTACY márquez 1.2.840.114 [id number] Univers 00:00:00 00:00:00 Management Anika ESTRELLA 350.1.13.10 [place] of [place] [id number] [address] 2022-03-16 2022-03-16 Outpatient R MERRY [facility] [id number] Univers 14:00:00 14:00:00 MERCY carroll o f [facility] 2021-11-04 2021-11-04 Orders Doctor JUAN DIEGO 1.2.840.114 [id number] Univers 00:00:00 00:00:00 Only Unassigned, AMADA 350.1.13.10 ity of [place] [facility] 4.2.7.2.686 Topher as [id number] [address] 2021-06-16 2021-06-16 Outpatient R ASTRID [facility] [id number] Univers 14:15:00 16:03:21 CATHY ity [facility] 2021-06-16 2021-06-16 Office Pgy2 UNIVERSIT 1.2.482.182 [id number] Univers 14:15:00 16:03:21 Visit Cathy Burger 350.1.13.[address] [facility] [place] [id number] [facility] [address] 2021-06-06 2021-06-06 Patient Doctor JUAN DIEGO 1.2.840.114 [id number] Univers 00:00:00 00:00:00 Secure Msg Unassigned, AMADA 350.1.13.10 ity of [facility] 4.2.7.2.686 [place] [id number] [facility] [address] 2021-06-02 2021-06-03 Outpatient R SABINO [facility] [address] SUPERINTENDENT [id number] Univers 09:47:00 13:27:00 ARMSTRONG ity [facility] 2021-06-02 2021-06-03 Hospital MARTIN Gallo 1.2.840.114 [id number] Univers 09:47:00 13:27:00 Encounter Armstrongsummer YBARRA 350.1.13.10 ity of [facility] 4.2.7.2.686 [place] as [id number] [facility] [address] 2021-06-02 2021-06-02 Surgery MARTIN Gallo 1.2.840.114 [id number] Univers 12:04:00 15:01:00 Armstrong AMADA 350.1.13.10 it y of [facility] 4.2.7.2.686 [place] as [id number] [facility] [address] 2021-06-01 2021-06-01 Laboratory Only, Adc Test [facility] 1.2.840. 114 [id number] Univers 11:30:00 11:45:00 Only Nathaniel Gallo [facility] 350.1.13 .10 ity [facility] [place] [id number] [facility] [address] 2021-06-01 2021-06-01 Outpatient R SABINO [facility] [id number] Univers 11:30:00 11:30:00 ARMSTRONG ity [facility] 2021-06-01 2021-06-01 Orders Doctor JUAN DIEGO 1.2.840.114 [id number] Univers 00:00:00 00:00:00 Only Unassigned, AMADA 350.1.13.10 ity of [place] [facility] 4.2.7.2.686 Topher as [id number] [facility] [address] 2021-05-04 2021-05-04 Prep For [facility], UNIVERSIT 1.2.840.114 [id number] Univers 00:00:00 00:00:00 Surgery [facility] 350.1.13.10 ity of [place] [id number] [facility] [address] 2021-04-29 2021-04-29 Patient Sabino [facility] 1.2.840.114 [id number] Univers 00:00:00 00:00:00 Secure [facility] 350.1.13.10 ity of [facility] SPECIALTY 4.2.7.2.686 Te [facility] [id number] [facility] [address] 2021-03-28 2021-03-28 Emergency [facility] [id number] Univers 08:41:00 09:59:00 SOHAN ity [facility] 2021-03-28 2021-03-28 [facility] 1.2.822.045 [id number] Univers 08:41:00 09:59:00 Sohan AGUILAR 350.1.13.10 i ty of [place] [id number] [facility] [address] 2021-03-28 2021-03-28 Orders Doctor JUAN DIEGO 1.2.840.114 [id number] Univers 00:00:00 00:00:00 Only Unassigned, AMADA 350.1.13.10 ity of [place] [facility] 4.2.7.2.686 Topher as [id number] [facility] [address] 2021-03-21 2021-03-21 Laboratory Only, Adc Test [facility] 1.2.840. 114 [id number] Univers 13:45:00 14:00:00 Only Sally Almonte 350.1.13.10 ity of [place] [id number] [facility] [address] 2021-03-21 2021-03-21 Outpatient Fabio ALMONTE [facility] [id number] Univers 13:45:00 13:45:00 SALLY ity of [facility] 2021-03-21 2021-03-21 Telephone SRI Gallo 1.2.840.114 [id number] Univers 00:00:00 00:00:00 [facility] 350.1.13.10 i ty of [facility] [place] [id number] [facility] [address] 2021-03-21 2021-03-21 Patient Doctor JUAN DIEGO 1.2.840.114 [id number] Univers 00:00:00 00:00:00 Secure Msg Unassigned, AMADA 350.1.13.10 ity of [facility] 4.2.7.2.686 [place] [id number] [facility] [address] 2021-02-28 2021-02-28 Office Provider, LissethRmchanupam [facility] 1 .2.840.114 [id number] Univers 12:45:00 13:55:55 Visit Bel Quiroz REPAIR SPECIALIST 350.1.13. 10 [facility]y [facility] 4.2.7.2.686 [place]her as MATERNAL [id number] Med ical & CHILD [address] [place] [address] 2021-02-28 2021-02-28 Outpatient Fabio QUIROZ [facility] [id number] Univers 12:45:00 13:55:55 BEL singleton [facility] 2021-02-28 2021-02-28 Outpatient Fabio QUIROZ [facility] [id number] Univers 12:45:00 12:45:00 BEL chávez [facility] 2021-02-28 2021-02-28 Outpatient Fabio QUIROZ [facility] [id number] Univers 12:45:00 12:45:00 BEL chávez [facility] 2021-02-24 2021-02-24 Outpatient Fabio GALLO [facility] [id number] Univers 15:00:00 16:15:16 [facility] 2021-02-24 2021-02-24 Outpatient R SABINO [facility] [id number] Univers 15:00:00 16:15:16 [facility] 2021-02-24 2021-02-24 Office Pgy3 UNIVERSIT 1.2.073.189 [id number] Univers 14:58:53 16:15:16 Visit Nathaniel Gallo [facility] 350.1.13 .10 ity [place] [id number] [address] 2021-02-24 2021-02-24 Outpatient R SABINO [facility] [id number] Univers 15:00:00 15:00:00 [facility] 2021-02-24 2021-02-24 Prep For HUNG Reynoso 1.2.840.114 [id number] Univers 00:00:00 00:00:00 Surgery Critical access hospital 350.1.13.10 i ty [place] [id number] [address] 2021-02-07 2021-02-07 Outpatient Fabio ESTEBAN [facility] [id number] Univers 12:45:00 13:23:59 AMADOR [facility] 2021-02-07 2021-02-07 Routine [facility] 1.2.429.589 [id number] Univers 12:45:41 13:00:41 Amador Sweeney REPAIR SPECIALIST 350.1.13.10 i ty of Visit REGIONAL 4.2.7.2.686 Topher as MATERNAL [phone] Med ical & CHILD [address] [place] [address] 2021-01-24 2021-01-25 Outpatient P DORENE RICHARDSON [facility] ISREAL [id number] Univers 23:55:00 00:33:00 [facility] 2021-01-24 2021-01-25 [facility] Jeffery Morrison [facility] 1.2.840.1 14 [id number] Univers 23:55:00 00:33:00 Encounter Dorene Richardson [place] 350.1.13.10 ity [facility] 4.2.7.2.686 [place] [facility] [id number] [facility] [address] 2021-01-18 2021-01-18 Outpatient R ARTHUR [facility] [id number] Univers 14:00:00 14:00:00 ELEAZAR carroll o f [facility] 2021-01-13 2021-01-16 [facility] JUAN DIEGO Stoddard 1.2.840.114 [id number] Univers 18:35:00 19:41:00 Encounter Shahzad YBARRA 350.1.13.10 ity [facility] 4.2.7.2.686 [place] [id number] [facility] [address] 2021-01-13 2021-01-16 Inpatient P CHANI [facility] ISREAL [id number] Univers 18:35:00 19:41:00 SHAHZAD ity [facility] 2021-01-15 2021-01-15 Telephone [facility] 1.2.229.104 [id number] Univers 00:00:00 00:00:00 Angela Mccarthy REPAIR SPECIALIST 350.1.13.10 ity [facility] 4.2.7.2.686 [place] as MATERNAL [id number] Med ical & CHILD [address] [place] [address] 2021-01-14 2021-01-14 Anesthesia Arturo Garcia 1.2.840.114 [id number] Univers 08:17:00 21:12:00 Event Kenyatta Glover 350.1.1 3.10 ity [facility] 4.2.7.2.686 [place] [id number] [facility] [address] 2021-01-13 2021-01-13 Anesthesia JUAN DIEGO Salgado 1.2.840.114 [id number] Univers 20:00:57 20:00:57 Event Koby YBARRA 350.1.13.10 it y of [facility] 4.2.7.2.686 [place] as [id number] [facility] [address] 2021-01-13 2021-01-13 Routine Provider, Geo [facility] 1 .2.840.114 [id number] Univers 14:26:59 15:42:05 Bel Quiroz REPAIR SPECIALIST 350.1.13 .10 ity of Visit REGIONAL 4.2.7.2.686 Topher as MATERNAL [id number] [facility] & [address] 2021-01-13 2021-01-13 Outpatient R [facility] [id number] Univers 14:30:00 14:30:00 ity of [facility] 2021-01-06 2021-01-06 Routine Provider, Geo [facility] 1 .2.840.114 [id number] Univers 13:58:10 14:46:46 Bel Quiroz REPAIR SPECIALIST 350.1.13 .10 ity of Visit REGIONAL 4.2.7.2.686 [place]her as MATERNAL [id number] [facility] & [address] 2021-01-06 2021-01-06 Outpatient R [facility] [id number] Univers 14:15:00 14:15:00 ity of [facility] 2021-01-06 2021-01-06 Orders Doctor JUAN DIEGO 1.2.840.114 [id number] Univers 00:00:00 00:00:00 Only Unassigned, AMADA 350.1.13.10 ity of [place] [facility] 4.2.7.2.686 Topher as [id number] [place] [address] [address] 2021-01-03 2021-01-03 Office Sierra Trujillo [facility] 1.2.840.114 [id number] Univers 12:51:33 13:21:33 Visit S [facility] 350.1.13.10 it y [place] [id number] [facility] 0[address] Office Building 2021-01-03 2021-01-03 Outpatient R SIERRA TRUJILLO [facility] [id number] Univers 13:00:00 13:00:00 ity [facility] 2021-01-03 2021-01-03 Telephone Leobardo [facility] 1.2.840.114 [id number] Univers 00:00:00 00:00:00 Bel Singleton REPAIR SPECIALIST 350.1.13.10 ity of REGIONAL 4.2.7.2.686 [place]her as MATERNAL [phone] [facility] & CHILD [address] [place] [address] 2020-12-30 2020-12-30 Routine Provider, Geo [facility] 1 .2.840.114 [id number] Univers 12:45:06 13:26:45 Bel Qurioz O REPAIR SPECIALIST 350.1.13 .10 ity of Visit REGIONAL 4.2.7.2.686 Topher as MATERNAL [id number] [facility] & CHILD [address] [place] [address] 2020-12-30 2020-12-30 Outpatient R [facility] [id number] Univers 12:45:00 12:45:00 ity [facility] 2020-12-21 2020-12-21 Outpatient R FER [facility] [id number] Univers 13:15:00 13:15:00 ROSHUNDA ity o [facility] 2020-12-20 2020-12-20 Outpatient R FER [facility] [id number] Univers 13:15:00 13:15:00 ROSHUNDA ity o f [facility] 2020-12-15 2020-12-15 Outpatient R FER [facility] [id number] Univers 12:45:00 12:45:00 ROSHUNDA ity o f [facility] 2020-12-13 2020-12-13 Outpatient R [facility] [id number] Univers 13:00:00 13:00:00 ity [facility] 2020-12-13 2020-12-13 Telemedici Faculty, Rodriguez [facility] 1.2.840.114 [id number] Univers 09:12:45 09:27:45 ne Visit Adrian Girardwilfredo Coy REPAIR SPECIALIST 350.1 .13.10 ity of REGIONAL 4.2.7.2.686 [place]her as MATERNAL [phone] [facility] & CHILD [address] [place] [address] 2020-11-30 2020-11-30 Routine Fer [facility] 1.2.840.114 [id number] Univers 13:50:48 14:05:48 Roshunda R REPAIR SPECIALIST 350.1.13.10 ity of Visit [facility] 4.2.7.2.686 Topher as MATERNAL [id number] [facility] & CHILD [address] [place] [address] 2020-11-30 2020-11-30 [facility] 1.2.840.114 [id number] Univers 13:50:48 14:05:48 Roshunda R REPAIR SPECIALIST 350.1.13.10 ity of Visit [facility] 4.2.7.2.686 Topher as MATERNAL [id number] [facility] ical & CHILD [address] [place] [address] 2020-11-30 2020-11-30 Outpatient [facility] [id number] Univers 13:45:00 13:45:00 ROSHUNDA ity o f [facility] 2020-11-22 2020-11-22 Telephone [facility] 1.2.549.000 [id number] Univers 00:00:00 00:00:00 Roshunda R REPAIR SPECIALIST 350.1.13.10 ity of [facility] 4.2.7.2.686 Topher as MATERNAL [id number] [facility] & CHILD [address] [place] [address] 2020-11-22 2020-11-22 Telephone [facility] 1.2.058.580 [id number] Univers 00:00:00 00:00:00 Rosgenaronda R REPAIR SPECIALIST 350.1.13.10 ity of [facility] 4.2.7.2.686 Topher as MATERNAL [id number] [facility] & CHILD [address] [place] [address] 2020-11-18 2020-11-18 [facility] 1.2.840.114 [id number] Univers 12:35:00 16:55:00 Encounter Adrianne Aguilar 350.1.13.10 ity of [place] [id number] [address] 2020-11-18 2020-11-18 [facility] 1.2.840.114 [id number] Univers 12:35:00 16:55:00 Encounter Adrianne Aguilar 350.1.13.10 ity of [place]2.7.2.[place] [facility] [id number] [facility] [address] [place] 2020-11-18 2020-11-18 Nurse JUAN DIEGO Campbell 1.2.840.114 [id number] Univers 00:00:00 00:00:00 Triage Aneatrice AMADA 350.1.13.10 ity of HOSPITAL 4.2.7.2.686 [place]her as [id number] [facility] [address] [place] 2020-11-18 2020-11-18 Orders Doctor JUAN DIEGO 1.2.840.114 [id number] Univers 00:00:00 00:00:00 Only Unassigned, AMADA 350.1.13.10 ity of [place] [facility] 4.2.7.2.686 Topher as [id number] [facility] [address] [place] 2020-11-18 2020-11-18 JUAN DIEGO Adams 1.2.840.114 [id number] Univers 00:00:00 00:00:00 Triage Aneatrice AMADA 350.1.13.10 ity of HOSPITAL 4.2.7.2.686 [place] as [id number] [facility] [address] [place] 2020-11-18 2020-11-18 Orders Doctor JUAN DIEGO 1.2.840.114 [id number] Univers 00:00:00 00:00:00 Only Unassigned, AMADA 350.1.13.10 ity of [place] [facility] 4.2.7.2.686 Topher as [id number] [facility] [address] [place] 2020-11-15 2020-11-15 [facility] 1.2.840.114 [id number] Univers 13:12:19 14:22:19 Angela R REPAIR SPECIALIST 350.1.13.10 ity of Visit REGIONAL 4.2.7.2.686 Topher as MATERNAL [id number] [facility] ical & CHILD [address] [place] [address] 2020-11-15 2020-11-15 Outpatient Fabio MONROE [facility] [id number] Univers 13:15:00 13:15:00 ANGELA cuiy o f [facility] 2020-11-09 2020-11-09 Outpatient R FER [facility] [id number] Univers 07:30:00 07:30:00 GININDA ity o f [facility] 2020-11-01 2020-11-01 Routine Rodriguez Ulloa [facility] 1.2 .840.114 [id number] Univers 09:02:36 10:59:17 Wil Liang Dieter REPAIR SPECIALIST 350.1.13. 10 ity of Visit REGIONAL 4.2.7.2.686 Topher as MATERNAL [id number] [facility] ical & CHILD [address] [place] [address] 2020-11-01 2020-11-01 Outpatient R [facility] [id number] Univers 09:00:00 09:00:00 ity of [facility] 2020-10-25 2020-10-25 Routine Fer [facility] 1.2.840.114 [id number] Univers 07:38:43 08:41:17 Angela R REPAIR SPECIALIST 350.1.13.10 ity of Visit REGIONAL 4.2.7.2.686 Topher as MATERNAL [id number] [facility] & [address] 2020-10-25 2020-10-25 Outpatient [facility] [id number] Univers 07:45:00 07:45:00 IMERA glen o f [facility] 2020-10-20 2020-10-20 [facility] Sierra Trujillo UNIVERSIT 1.2.840.114 [id number] Univers 14:33:32 23:59:00 Encounter S Y HEALTH 350.1.13.10 ity [place] [id number] [address] 2020-10-20 2020-10-20 [facility] Sierra Trujillo UNIVERSIT 1.2.840.114 [id number] Univers 14:33:16 23:59:00 Encounter S Y HEALTH 350.1.13.10 ity of [place] [id number] [address] 2020-10-20 2020-10-20 [facility] Sierra Trujillo UNIVERSIT 1.2.840.114 [id number] Univers 14:30:00 14:32:00 Encounter S Y HEALTH 350.1.13.10 ity of [place]2.[place] [id number] [facility] [address] [place] 2020-10-20 2020-10-20 Outpatient R SIERRA TRUJILLO [facility] [id number] Univers 00:00:00 00:00:00 ity of [facility] 2020-10-11 2020-10-11 Extractor Operator [facility] 1.2 .840.114 [id number] Univers 13:12:56 14:12:56 Visit Castaneda Azul Mills REPAIR SPECIALIST 350.1. 13.10 ity of [facility] 4.2.7.2.686 Topher as MATERNAL [id number] [facility] ical & CHILD 369 [facility] 2020-10-11 2020-10-11 Outpatient P [facility] [id number] Univers 13:30:00 13:30:00 ity of [facility] 2020-10-11 2020-10-11 Abstract Fer [facility] 1.2.840.114 [id number] Univers 00:00:00 00:00:00 Rosgenaronda R REPAIR SPECIALIST 350.1.13.10 ity of [facility] 4.2.7.2.686 Topher as MATERNAL [id number] [facility] & [facility] 107 [facility] 2020-09-29 2020-09-29 Telephone Sierra Trujillo UNIVERSIT 1.2.840.11 [id number] Univers 00:00:00 00:00:00 S Y HEALTH 350.1.13.10 i ty of CL[place].2.[place] [id number] [facility] [address] [place] 2020-09-27 2020-09-27 Outpatient Fabio MONROE [facility] [id number] Univers 15:45:00 15:45:00 ROSHUNDA ity o f [facility] 2020-09-27 2020-09-27 Routine Fer TNBREANNE 1.2.840.114 [id number] Univers 07:30:52 08:04:26 Roshunda R REPAIR SPECIALIST 350.1.13.10 ity of Visit REGIONAL 4.2.7.2.686 Topher as MATERNAL [id number] [facility] & CHILD [address] [place] [address] 2020-09-27 2020-09-27 Outpatient R FER [facility] [id number] Univers 07:30:00 07:30:00 GININDA ity o f [facility] 2020-09-22 2020-09-22 Outpatient R FER [facility] [id number] Univers 08:00:00 08:00:00 ROSGENARONDA ity o f [facility] 2020-09-21 2020-09-21 Outpatient R FER [facility] [id number] Univers 09:30:00 09:30:00 GININDA ity o [facility] 2020-09-15 2020-09-15 Abstract Fer [facility] 1.2.840.114 [id number] Univers 00:00:00 00:00:00 Angela Mccarthy REPAIR SPECIALIST 350.1.13.10 ity of REGIONAL 4.2.7.2.686 Topher as MATERNAL [id number] [facility] & CHILD [address] [place] [address] 2020-09-14 2020-09-14 Extractor Operator [facility]tras[facility] 1.2 .840.114 [id number] Univers 09:51:18 11:06:18 Visit Wil Liang REPAIR SPECIALIST 350.1.13.1 0 ity of REGIONAL 4.2.7.2.686 Topher as MATERNAL [id number] [facility] ical & CHILD 369 [facility] 2020-09-14 2020-09-14 Outpatient P [facility] [id number] Univers 10:00:00 10:00:00 ity of [facility] 2020-09-06 2020-09-06 Office Faculty, Rodriguez Mckay [facility] 1.2 .840.114 [id number] Univers 11:22:29 11:54:07 Visit Mechelle Dean REPAIR SPECIALIST 350.1.13.10 ity of REGIONAL 4.2.7.2.686 [place]her as MATERNAL [id number] [facility] ical & CHILD [address] [place] [address] 2020-09-06 2020-09-06 Outpatient R MECHELLE DEAN [facility] [id number] Univers 11:30:00 11:30:00 MECHELLE DEAN ity of [facility] 2020-08-26 2020-08-26 Office Clinic, [facility] UNIVERSIT 1.2.840.114 [id number] Univers 15:00:27 16:57:43 Visit HernandezHoda Y HEALTH 350.1.13.10 ity of [place] [id number] [facility] [address] 2020-08-26 2020-08-26 Laboratory Only, [facility] Test UNIVERSIT 1.2.84 0.114 [id number] Univers 14:45:13 15:00:13 Only HernandezHoda Y HEALTH 350.1.13.10 ity of CL[place]2.[place].2.[place] [id number] [facility] [address] 2020-08-26 2020-08-26 Outpatient R [facility] [id number] Univers 15:00:00 15:00:00 ity of [facility] 2020-08-26 2020-08-26 Case Ed, UNIVERSIT 1.2.840.114 [id number] Univers 00:00:00 00:00:00 Management Gumaro Y HEALTH 350.1.13.10 ity of [place] [id number] [facility] [address] 2020-08-26 2020-08-26 Orders Doctor JUAN DIEGO 1.2.840.114 [id number] Univers 00:00:00 00:00:00 Only Unassigned, AMADA 350.1.13.10 ity of [place] [facility] 4.2.7.2.686 Topher as [id number] [facility] [address] 2020-08-26 2020-08-26 Telephone Delmar UNIVERSIT 1.2.840.11 [id number] Univers 00:00:00 00:00:00 Hoda Y HEALTH 350.1.13.10 i ty of CL[place]ICS [place].2.[place] [id number] [facility] [address] 2020-08-24 2020-08-24 Routine Fer [facility] 1.2.840.114 [id number] Univers 09:49:30 10:04:30 Angela R REPAIR SPECIALIST 350.1.13.10 ity of Visit REGIONAL 4.2.7.2.686 Topher as MATERNAL [id number] [facility] ical & CHILD [address] [place] [address] 2020-08-24 2020-08-24 Out[facility] [id number] Univers 09:45:00 09:45:00 ROSHUNDA ity o f [facility] 2020-08-24 2020-08-24 Case Delmar, UNIVERSIT 1.2.840.114 [id number] Univers 00:00:00 00:00:00 Management Hoda Y HEALTH 350.1.13.10 it[place] [id number] [facility] [address] 2020-08-18 2020-08-18 Telephone SRI Walter 1.2.840.114 [id number] Univers 00:00:00 00:00:00 Malinda Y HEALTH 350.1.13.10 i ty [place] [id number] [facility] [address] 2020-08-17 2020-08-17 Telephone JUAN DIEGO Crandall 1.2.840.114 [id number] Univers 00:00:00 00:00:00 Alison YBARRA 350.1.13.10 i ty of HOSPITAL 4.2.7.2.686 Top[place] as [id number] [facility] [address] 2020-08-12 2020-08-12 Outpatient R [facility] [id number] Univers 15:00:00 15:00:00 ity of [facility] 2020-08-11 2020-08-11 Routine Enrique [facility] Resident UNIVERSIT 1.2.8 40.114 [id number] Univers 13:03:34 15:03:17 Hernandez, Hoda Y HEALTH 350.1.13.10 ity of Visit [place] [id number] [facility] [address] 2020-08-11 2020-08-11 Outpatient R [facility] [id number] Univers 13:45:00 13:45:00 ity of [facility] 2020-08-05 2020-08-05 Orders Doctor JUAN DIEGO 1.2.840.114 [id number] Univers 00:00:00 00:00:00 Only Unassigned, AMADA 350.1.13.10 ity of [facility] 4.2.7.2.686 Topher as [id number] [facility] [address] 2020-08-04 2020-08-04 Emergency [facility] [id number] [id number] Univers 12:23:00 18:00:00 Josafat Aguilar 350.1.13.10 i ty [facility] 4.2.7.2.686 [place] [facility] [phone] [facility] [address] 2020-08-04 2020-08-04 Patient Fer [facility] 1.2.840.114 [id number] Univers 00:00:00 00:00:00 Secure Msg Angela Mccarthy REPAIR SPECIALIST 350.1.13.10 ity of [facility] 4.2.7.2.686 Topher as MATERNAL [phone] Med ical & CHILD [address] [place] [address] 2020-08-04 2020-08-04 Telephone Albertomeenakshiroscoe [facility] 1.2.840.114 [id number] Univers 00:00:00 00:00:00 Mercy Naranjo REPAIR SPECIALIST 350.1.13.10 ity of [facility] 4.2.7.2.686 Topher as MATERNAL [phone] [facility] ical & CHILD [address] [place] [address] 2020-08-04 2020-08-04 Orders Doctor JUAN DIEGO 1.2.840.114 [id number] Univers 00:00:00 00:00:00 Only Unassigned, AMADA 350.1.13.10 ity of [facility] 4.2.7.2.686 Topher as [phone] [address] 2020-08-04 2020-08-04 Patient Fer [facility] 1.2.840.114 [id number] Univers 00:00:00 00:00:00 Secure Msg Roshunda R REPAIR SPECIALIST 350.1.13.10 ity of REGIONAL 4.2.7.2.686 Topher as MATERNAL [id number] [facility] ical & CHILD [address] [place] [address] 2020-08-02 2020-08-02 Patient FerSCOOTER 1.2.840.114 [id number] Univers 00:00:00 00:00:00 Secure Msg Roshunda R REPAIR SPECIALIST 350.1.13.10 ity of REGIONAL 4.2.7.2.686 Topher as MATERNAL [phone] [facility] ical & CHILD [address] [place] [address] 2020-07-31 2020-07-31 [facility] JUAN DIEGO Girard 1.2.840.114 [id number] Univers 15:08:00 18:01:00 Encounter Alison YBARRA 350.1.13.10 ity of [place] [id number] [facility] [address] 2020-07-28 2020-07-28 Telephone Pgy3 UNIVERSIT 1.2.840.114 [id number] Univers 00:00:00 00:00:00 Y HEALTH 350.1.13.10 i ty of [place].2.[place] [id number] [facility] [address] 2020-07-28 2020-07-28 Telephone Pgy3 UNIVERSIT 1.2.840.114 [id number] 00:00:00 00:00:00 Y HEALTH 350.1.13.10 CLINICS 4.2.7.2.686 [id number] [facility] 2020-07-27 2020-07-27 [facility] 1.2.840.114 [id number] Univers 09:46:46 10:15:31 Roshunda R REPAIR SPECIALIST 350.1.13.10 ity of Visit REGIONAL 4.2.7.2.686 Topher as MATERNAL [phone] [facility] & CHILD [address] [place] [address] 2020-07-27 2020-07-27 Routine Fer TNBREANNE 1.2.840.114 [id number] 09:46:46 10:15:31 Roshunda R REPAIR SPECIALIST 350.1.13.10 Visit REGIONAL 4.2.7.2.686 MATERNAL [phone] & CHILD [address] [place] [address] 2020-07-27 2020-07-27 Outpatient R FER [facility] [id number] Univers 09:30:00 09:30:00 ROSGENARONDA ity o [facility] 2020-07-27 2020-07-27 Outpatient R MERRY [facility] [id number] Univers 09:00:00 09:00:00 MERCY ity o f [facility] 2020-06-29 2020-06-29 Extractor Operator Ultrasound, Phil [facility] 1.2 .840.114 [id number] Univers 10:18:12 10:48:12 Visit Albertofrank Mercy C REPAIR SPECIALIST 350.1.13. 10 ity of REGIONAL 4.2.7.2.686 Topher as MATERNAL [phone] Med ical & CHILD 369 [facility] 2020-06-29 2020-06-29 [facility] 1.2.241.894 [id number] Univers 09:01:46 09:44:49 Mercy C REPAIR SPECIALIST 350.1.13.10 ity of Visit REGIONAL 4.2.7.2.686 Topher as MATERNAL [phone] [facility] ical & CHILD [address] [place] [address] 2020-06-29 2020-06-29 Outpatient R MERRY [facility] [id number] Univers 09:00:00 09:00:00 MERCY ity o [facility] 2020-06-29 2020-06-29 Abstract Fer [facility] 1.2.840.114 [id number] Univers 00:00:00 00:00:00 Rosgenaronda R REPAIR SPECIALIST 350.1.13.10 ity of REGIONAL 4.2.7.2.686 Topher as MATERNAL [phone] [facility] ical & CHILD [address] [place] [address] 2020-06-09 2020-06-09 Extractor Operator Lab, Geo [facility] 1.2.840. 114 [id number] Univers 08:32:04 08:40:39 Visit Mercy Sousa REPAIR SPECIALIST 350.1.13. 10 ity of REGIONAL 4.2.7.2.686 Topher as MATERNAL [id number] [facility] & CHILD [address] [place] [address] 2020-06-09 2020-06-09 [facility] [id number] Univers 08:30:00 08:30:00 MERCY chávez [facility] 2020-06-02 2020-06-02 Telephone [facility] [id number] Univers 00:00:00 00:00:00 Roshunda R REPAIR SPECIALIST 350.1.13.10 ity of REGIONAL 4.2.7.2.686 Topher as MATERNAL [phone] [address] 2020-06-02 2020-06-02 Telephone [facility] [id number] Univers 00:00:00 00:00:00 Rosnda R REPAIR SPECIALIST 350.1.13.10 ity of REGIONAL 4.2.7.2.686 Topher as MATERNAL [id number] [address] 2020-06-01 2020-06-01 Initial [facility] 1.2.840.114 [id number] Univers 09:09:19 09:53:37 Roshunda R REPAIR SPECIALIST 350.1.13.10 ity of Visit REGIONAL 4.2.7.2.686 Topher as MATERNAL [phone] [facility] & CHILD [address] [place] [address] 2020-06-01 2020-06-01 Outpatient R MERRY [facility] [id number] Univers 08:30:00 08:30:00 MERCY chávez [facility] 2020-06-01 2020-06-01 Orders Doctor ADAMSON 1.2.840.114 [id number] Univers 00:00:00 00:00:00 Only Unassigned, AMADA 350.1.13.10 ity of [place] [facility] 4.2.7.2.686 Topher as [phone] [address] 2019-03-11 2019-03-11 Patient Doctor [facility] 1.2.840.114 [id number] Univers 00:00:00 00:00:00 Secure Msg Unassigned, REPAIR SPECIALIST 350.1.13.10 ity of [place] [facility] 4.2.7.2.686 Topher as MATERNAL [id number] Med ical & CHILD 107 [facility] 2019-03-11 2019-03-11 Patient Doctor JUAN DIEGO 1.2.840.114 [id number] Univers 00:00:00 00:00:00 Secure Msg Unassigned, AMADA 350.1.13.10 ity of [place] [facility] 4.2.7.2.686 Topher as [phone] [facility] [address] Results Test Description Test Time Test Comments Results Result Comments Source CBC WITH DIFF 2022-08-21 04:58:14 Test Item Value Reference Range Interpretation Comme nts WBC (test code = 6690-2) 22.88 See_Comment H [A utomated message] The system which [employer] nerated this result transmit belen reference range: 4.30 - 1 1.10 10*3/?L. The reference r shade was not used to interpr et this result as normal/abnor mal. RBC (test code = 789-8) 4.52 See_Comment [Au tomated message] The system which [employer] nerated this result transmit belen reference range: [...] 33.2 g/dL 31.6-35.1 RDW-SD (test code = 16831-5) 40.6 fL 39.0-49.9 RDW-CV (test code = 788-0) 13.0 % 12.0-15.5 PLT (test code = 777-3) 355 See_Comment [Au tomated message] The system which ge nerated this result transmit belen reference range: 166 - 35 8 10*3/?L. The reference range was not used to interpret th is result as normal/abnormal . MPV (test code = 52589-3) 10.5 fL 9.5-12.9 NRBC/100 WBC (test code = 0.0 See_Comment [ Automated message] The 1180180357) system which ge nerated this result transmit belen reference range: 0.0 - 10 .0 /100 WBCs. The reference r shade was not used to interpr et this result as normal/abnor mal. NRBC x10^3 (test code = See_Comment [Au tomated message] The 6253082876) system which ge nerated this result transmit belen reference range: 10*3/?L. The reference range was not u sed to interpret this result as normal/abnormal . GRAN MAT (NEUT) % (test code 88.1 % = 770-8) IMM GRAN % (test code = 0.80 % 0096500947) LYMPH % (test code = 736-9) 6.2 % MONO % (test code = 5905-5) 2.9 % EOS % (test code = 713-8) 1.7 % BASO % (test code = 706-2) 0.3 % GRAN MAT x10^3(ANC) (test 20.14 10*3/uL 1.88-7.09 H code = 0237263342) IMM GRAN x10^3 (test code = 0.18 10*3/uL 0.00-0.06 H 0658070368) LYMPH x10^3 (test code = 1.42 10*3/uL 1.32-3.29 731-0) MONO x10^3 (test code = 0.67 10*3/uL 0.33-0.92 742-7) EOS x10^3 (test code = 0.40 10*3/uL 0.03-0.39 H 711-2) BASO x10^3 (test code = 0.07 10*3/uL 0.01-0.07 704-7) BANDS (test code = Increased A 9247433265) Lab Interpretation (test Abnormal code = 21794-2) [facility]. METABOLIC PANEL (78874)2022-08-21 04:27:33 Test Item Value Reference Range Interpretation Comments NA (test code = 137 mmol/L 135-145 1024159972) K (test code = 3.5 mmol/L 3.5-5.0 9014272826) CL (test code = 102 mmol/L 98-108 8707039111) CO2 TOTAL (test code = 22 mmol/L 23-31 L 7213379440) AGAP (test code = 13 2-16 6501036479) BUN (test code = 9 mg/dL 7-23 9773665965) GLUCOSE (test code = 96 mg/dL 70-110 8350556882) CREATININE (test code = 0.51 mg/dL 0.50-1.04 3788836055) TOTAL BILI (test code = 0.9 mg/dL 0.1-1.8 7442639459) CALCIUM (test code = 8.5 mg/dL 8.6-10.6 L 2737526796) T PROTEIN (test code = 7.9 g/dL 6.3-8.2 9537416976) ALBUMIN (test code = 4.2 g/dL 3.5-5.0 6219414256) ALK PHOS (test code = 105 U/L 34-122 6507441181) ALTv (test code = 24 U/L 5-35 1742-6) AST(SGOT) (test code = 26 U/L 13-40 6528697297) eGFR (test code = 145.8 mL/min/1.73m2 8595584514) MEGAN (test code = MEGAN) Association of [...] tests). Lab Interpretation Abnormal (test code = 69043-4) [id number]35[facility] Test Item Value Reference Range Interpretation Comments POCT PREG (test code = 1605) Negative On board controls acceptable with Yes C Line (test code = 3574) POCT PREG LOT # (test code = 3575) [id number] POCT PREG TEST DATE (test 12/30/2023 code = 3576) Lab Interpretation (test code = Normal 61488-5) [facility]"
[2023-01-31 08:26] LABS: SARS-COV-2 RT PCR NEGATIVE (NEGATIVE)
--- NOTE | 2023-01-31 09:02 | ER ---
Nurse's Notes [facility] Name: Thelma Modi Age: 27 yrs Sex: Female : 1995 Arrival Date: 01/31/2023 Time: 07:05 Bed 5 Private MD: Diagnosis: Acute upper respiratory infection, unspecified;Pain in throat Presentation: 01/31 07:13 Chief complaint: Patient states: woke up with a sore throat , and felt feverish , cough iw last night. Coronavirus screen: At this time, the client does not indicate any symptoms associated with coronavirus-19. Ebola Screen: Patient negative for fever greater than or equal to 101.5 degrees Fahrenheit, and additional compatible Ebola Virus Disease symptoms Patient denies exposure to infectious person. Patient denies travel to an Ebola-affected area in the 21 days before illness onset. Initial Sepsis Screen: Does the patient meet any 2 criteria? No. Patient's initial sepsis screen is negative. Does the patient have a suspected source of infection? No. Patient's initial sepsis screen is negative. Risk Assessment: Do you want to hurt yourself or someone else? Patient reports no desire to harm self or others. Onset of symptoms was January 31, 2023. 07:13 Method Of Arrival: Ambulatory iw 07:13 Acuity: OC 4 iw Historical: - Allergies: 07:14 No Known Allergies; iw - PMHx: 07:14 miscarriage; iw - PSHx: 07:14 ovary removed; iw - Immunization history:: Adult Immunizations up to date. - Social history:: Smoking status: Patient denies any tobacco usage or history of. Screenin:30 [facility] ED Fall Risk Assessment (Adult) Score/Fall Risk Level 0 - 2 = Low Risk hb Oriented to surroundings, Maintained a safe environment. Abuse screen: Denies threats or abuse. Denies injuries from another. Nutritional screening: No deficits noted. Tuberculosis screening: No symptoms or risk factors identified. Assessment: 07:30 General: Appears in no apparent distress. Behavior is calm, cooperative. Pain: Pain hb currently is 4 out of 10 on a pain scale. Neuro: Level of Consciousness is awake, alert, obeys commands, Oriented to person, place, time, situation. Cardiovascular: Patient's skin is warm and dry. Respiratory: Reports cough that is Respiratory effort is even, unlabored, Respiratory pattern is regular, symmetrical. GI: No signs and/or symptoms were reported involving the gastrointestinal system. : No signs and/or symptoms were reported regarding the genitourinary system. EENT: Throat is reddened. Derm: Skin is pink, warm \T\ dry. Musculoskeletal: No signs and/or symptoms reported regarding the musculoskeletal system. 08:23 Reassessment: Patient appears in no apparent distress at this time. Patient and/or hb family updated on plan of care and expected duration. Pain level reassessed. Patient is alert, oriented x 3, equal unlabored respirations, skin warm/dry/pink. Vital Signs: 07:13 BP 128 / 83; Pulse 77; Resp 16; Temp 98.4; Pulse Ox 98% on R/A; Pain 4/10; iw 07:13 Pain Scale: Adult iw ED Course: 07:08 Patient arrived in ED. rg4 07:11 Lino Coles DO is Attending Physician. ms3 07:14 Triage completed. iw 07:15 Arm band placed on. iw 07:30 Patient has correct armband on for positive identification. Provided Education on: . hb 07:30 No provider procedures requiring assistance completed. Patient did not have IV access hb during this emergency room visit. 07:37 Pennie Naidu, RN is Primary Nurse. hb 07:38 Flu Sent. hb 07:38 Strep Sent. hb 09:01 Smith Will DO is Referral Physician. ms3 Administered Medications: No medications were administered Outcome: 09:01 Discharge ordered by MD. ms3 09:44 Patient left the ED. hb Signatures: Rianna Valiente RN RN Pennie Naidu RN RN Shefali Reeves rg4 Lino Coles DO DO ms3 Corrections: (The following items were deleted from the chart) 07:16 07:13 BP 128 / 83; Pulse 77bpm; Resp 16bpm; Pulse Ox 98% RA; Temp 98.4F; iw iw 07:47 07:38 SARS-COV-2 RT PCR+MOL.LAB.BRZ drawn and sent. hb EDMS
--- NOTE | 2023-01-31 09:02 | EDPHYS ---
Physician Documentation [facility] Name: Thelma Modi Age: 27 yrs Sex: Female : 1995 Arrival Date: 01/31/2023 Time: 07:05 Bed 5 Private MD: ED Physician Lino Coles HPI: 01/31 07:18 This 27 yrs old Female presents to ER via Ambulatory with complaints of Sore ms3 Throat. 07:18 27 yo female with no pmh presents to the emergency department for sore throat that ms3 began last night. Patient rates her pain a 4/10. Patient states she has been around RSV at work. Patient denies nausea, vomiting. Patient endorses cough. Patient denies any alleviating or inciting factors. Patient states she took Tylenol at 4:30 AM. Historical: - Allergies: 07:14 No Known Allergies; iw - PMHx: 07:14 miscarriage; iw - PSHx: 07:14 ovary removed; iw - Immunization history:: Adult Immunizations up to date. - Social history:: Smoking status: Patient denies any tobacco usage or history of. ROS: 07:18 Constitutional: Negative for fever, and chills. Neck: Negative for injury, pain, and ms3 swelling, Cardiovascular: Negative for chest pain, and palpitations. Respiratory: Negative for shortness of breath, cough, wheezing, and pleuritic chest pain, Abdomen/GI: Negative for abdominal pain, nausea, vomiting, diarrhea, and constipation, 07:18 Skin: Negative for injury, rash, and discoloration, 07:18 ENT: Positive for sore throat, 07:18 All other systems are negative, Exam: 07:18 Constitutional: This is a well developed, well nourished patient who is awake, alert, ms3 and in no acute distress. Head/Face: Normocephalic, atraumatic. Neck: Trachea midline, no cervical lymphadenopathy. Supple, full range of motion without nuchal rigidity, or vertebral point tenderness. No Meningismus. Chest/axilla: Normal chest wall appearance and motion. Nontender with no deformity. Cardiovascular: Regular rate and rhythm with a normal S1 and S2. No gallops, murmurs, or rubs. Normal PMI, no JVD. No pulse deficits. Respiratory: Lungs have equal breath sounds bilaterally, clear to auscultation and percussion. No rales, rhonchi or wheezes noted. No increased work of breathing, no retractions or nasal flaring. Abdomen/GI: Soft, non-tender, with normal bowel sounds. No distension or tympany. No guarding or rebound. No evidence of tenderness throughout. 07:18 ENT: Posterior pharynx: Tonsils: bilaterally enlarged, with erythema, no exudate, no ulcerations, Uvula: normal, erythema, that is mild, peritonsillar mass, is not appreciated, pooling of secretions, is not appreciated, Vital Signs: 07:13 BP 128 / 83; Pulse 77; Resp 16; Temp 98.4; Pulse Ox 98% on R/A; Pain 4/10; iw 07:13 Pain Scale: Adult iw MDM: 07:18 Differential diagnosis: Strep versus COVID versus influenza. ms3 07:21 Patient medically screened. ms3 09:35 Data reviewed: vital signs, nurses notes, lab test result(s), and as a result, I will ms3 discharge patient. I considered the following discharge prescriptions or medication management in the emergency department I discussed and recommended Over The Counter medications. Test considered but Not performed: X-ray: Patient with normal oxygen saturation and lungs are clear to auscultation bilaterally.. Counseling: I had a detailed discussion with the patient and/or guardian regarding the historical points, exam findings, and any diagnostic results supporting the discharge/admit diagnosis, lab results, the need for outpatient follow up, to return to the emergency department if symptoms worsen or persist or if there are any questions or concerns that arise at home. Special discussion: I discussed with the patient/guardian in detail that at this point there is no indication for admission to the hospital. It is understood, however, that if the symptoms persist or worsen the patient needs to return immediately for re-evaluation. ED course: Discussed negative flu, COVID, strep with patient. Patient to follow-up with primary care physician in 2 to 3 days. Patient understands and agrees with plan. All questions were answered. Return precautions discussed include worsening symptoms, or any other concerns. On reevaluation patient is alert and oriented x4, no apparent distress, nontoxic-appearing, ambulatory in the emergency room, speaking full sentences. No signs of retropharyngeal or peritonsillar abscess are present.. 01/31 07:18 Order name: Strep; Complete Time: 08:33 ms3 01/31 07:18 Order name: Flu; Complete Time: 08:33 ms3 01/31 07:47 Order name: COVID-19/FLU A+B/RSV; Complete Time: 08:33 EDMS 01/31 08:23 Order name: Throat Culture EDMS Administered Medications: No medications were administered Disposition Summary: 01/31/23 09:01 Discharge Ordered Notes: Location: Home ms3 Condition: Stable ms3 Diagnosis - Acute upper respiratory infection, unspecified ms3 - Pain in throat ms3 Followup: ms3 - With: Smith Will DO - When: 2 - 3 days - Reason: Recheck today's complaints Discharge Instructions: - Discharge Summary Sheet hb - Sore Throat ms3 - Upper Respiratory Infection, Adult ms3 Forms: - Work release form hb - Medication Reconciliation Form ms3 - Thank You Letter ms3 - Antibiotic Education ms3 - Prescription Opioid Use ms3 - Patient Portal Instructions ms3 - Leadership Thank You Letter ms3 Signatures: Dispatcher [employer] EDRianna Qureshi, RN RN Pennie Naidu RN RN Lino Coles DO DO ms3 Corrections: (The following items were deleted from the chart) 07:47 07:18 SARS-COV-2 RT PCR+MOL.LAB.RUPALI ordered. EDMS EDMS
[2023-01-31 09:49] VITALS: BP 128/83; TEMP 98.4; O2SAT 98
== END 2023-01-31 09:44 | disposition home or self-care (01) ==
LOC: ER 07:05
DX: J06.9 Acute upper respiratory infection, unspecified (principal); Z11.52 Encounter for screening for COVID-19
CPT/HCPCS: 0241U; 87070; 87081; 87804; 99282